=== PATIENT | female | born 1955 | race Caucasian/White ===

== ENCOUNTER → 2018-10-06 10:16 | Outpatient (CLI) | payer OTHER, SELFPAY ==
[2018-10-06 11:15] LABS: Add Manual Diff / Slide Review NO; Basophils Absolute Auto 0 /uL (0-100); Eosinophils Absolute Auto 400 /uL (0-450); Eosinophils Percent Auto 8.6 % (2-4); Hematocrit 40.2 % (36-46); Hemoglobin 13.3 g/dL (12.0-16.0); Lymphocytes Absolute Auto 1600 /uL (1100-4500); Lymphocytes Percent Auto 32.2 % (25-40); Mean Corpuscular Hemoglobin 28.4 PG (26-34); Mean Corpuscular Volume 86.1 fL (80-100); Monocytes Absolute Auto 400 /uL (0-900); Monocytes Percent Auto 7.2 % (3-14); Neutrophils Absolute Auto 2500 /uL (1500-7000); Platelet Count 246 X10^3/uL (150-400); Red Blood Cell Count 4.67 X10^6/uL (4.0-5.2)
[2018-10-06 12:18] LABS: Alanine Aminotransferase 27 IU/L (9-52); Albumin 4.4 g/dL (3.5-5.0); Albumin Globulin Ratio 1.6 (1.0-2.8); Alkaline Phosphatase 71 U/L (38-126); Aspartate Aminotransferase 28 IU/L (14-36); Bilirubin Total 0.5 mg/dL (0.2-1.3); Blood Urea Nitrogen 16 mg/dL (7-17); Calcium 9.6 mg/dL (8.4-10.2); Carbon Dioxide 29 mmol/L (22-32); Chloride 100 mmol/L (98-107); Cholesterol 206 mg/dL (140-199); Estimated Glomerular Filt Rate > 60.0 mL/min (>60); Globulin 2.8 g/dL (1.7-4.1); Glucose 87 mg/dL (80-110); HDL Cholesterol 70 mg/dL (40-60); HEMOLYSIS < 15 (0-50); LDL Cholesterol Calculated 114 mg/dL (<100); Potassium 4.5 mmol/L (3.4-5.1); Sodium 139 mmol/L (137-145); Total Protein 7.2 g/dL (6.3-8.2); Triglycerides 111 mg/dL (35-150)
[2018-10-06 12:47] LABS: TSH w/ Reflex to FT4 1.08 uIU/mL (0.47-4.68)
== END ==
PROVIDERS: Family Provider Family Medicine; PCP Family Medicine; Visit Provider Family Medicine
DX: E03.9 Hypothyroidism, unspecified (principal); Z13.1 Encounter for screening for diabetes mellitus; Z86.79 Personal history of other diseases of the circulatory system
CPT/HCPCS: 36415; 80053; 80061; 84443; 85025

== ENCOUNTER → 2018-10-18 11:23 | Outpatient (CLI) | payer OTHER, SELFPAY ==
--- NOTE | 2018-10-18 | DI.MG.S_ITS ---
BILATERAL DIGITAL SCREENING MAMMOGRAM 3D/2D WITH CAD: 10/18/2018 CLINICAL: Routine screening. Family history of breast cancer. Comparison is made to exams dated: 10/15/2017 mammogram - [facility], 08/28/2016 mammogram, 08/13/2015 mammogram, and 08/02/2014 mammogram - [facility]. The tissue of both breasts is heterogeneously dense. This may lower the sensitivity of mammography. Current study was also evaluated with a Computer Aided Detection (CAD) system. No significant masses, calcifications, or other findings are seen in either breast. There has been no significant interval change. IMPRESSION: NEGATIVE There is no mammographic evidence of malignancy. A 1 year screening mammogram is recommended. This exam was interpreted at Station ID: [id number]. NOTE: For mammograms, a report in lay terms will be sent to the patient. Approximately 15% of breast malignancies will not be visualized mammographically. In the management of a palpable breast mass, a negative mammogram must not discourage biopsy of a clinically suspicious lesion. Electronically Signed By: Huey harley/sarahi:10/18/2018 17:33:25 letter sent: Normal Exam ACR BI-RADS Category 1: Negative 3341F
== END ==
PROVIDERS: PCP Family Medicine; Visit Provider Family Medicine
DX: Z12.31 Encounter for screening mammogram for malignant neoplasm of breast (principal); Z80.3 Family history of malignant neoplasm of breast
CPT/HCPCS: 77063; 77067

== ENCOUNTER → 2018-10-21 09:02 | Outpatient (CLI) | payer OTHER, SELFPAY ==
--- NOTE | 2018-10-21 09:04 | DI.RAD.S_ITS ---
PROCEDURE: XR LUMBAR SPINE MIN 4V INDICATIONS: Low back pain TECHNIQUE: 5 views of the lumbar spine were acquired. COMPARISON: None. FINDINGS: Bones: 5 nonrib-bearing vertebrae are present. There is normal bony alignment. No vertebral body compression fractures. No suspicious bony lesions. There is degenerative disc disease, moderate to severe at L3-L4 at L4-L5, mild at L1-L2 and L2-L3. There is moderate to severe facet arthropathy at L4-L5 and L5-S1. Soft tissues: Overlying bowel gas pattern is normal. No suspicious soft tissue calcifications. Oblique images: No pars defects. IMPRESSION: Degenerative disc and facet disease in lumbar spine. Dictated by: Benji Villeda M.D. on 10/21/2018 at 14:32 Approved by: Benji Villeda M.D. on 10/21/2018 at 14:34
--- NOTE | 2018-10-21 09:04 | DI.RAD.S_ITS ---
PROCEDURE: XR SACRUM COCCYX MIN 2V INDICATIONS: Low back pain TECHNIQUE: 3 views of the sacrum and coccyx acquired. COMPARISON: None. FINDINGS: Bones: No fractures or dislocations. No suspicious bony lesions. Mild degenerative joint disease of sacroiliac joints bilaterally Soft tissues: Visualized bowel gas pattern is normal. No suspicious soft tissue densities. IMPRESSION: 1. No fractures. 2. 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 Dictated by: Benji Villeda M.D. on 10/21/2018 at 17:14 Approved by: Benji Villeda M.D. on 10/21/2018 at 17:16
== END ==
PROVIDERS: PCP Family Medicine; Visit Provider Registered Nurse
DX: M54.5 Low back pain (principal); M51.36 Other intervertebral disc degeneration, lumbar region; M47.816 Spondylosis without myelopathy or radiculopathy, lumbar region; M47.817 Spondylosis without myelopathy or radiculopathy, lumbosacral region; M47.898 Other spondylosis, sacral and sacrococcygeal region
CPT/HCPCS: 72110; 72220

== ENCOUNTER → 2018-12-08 14:17 | Outpatient (CLI) | payer OTHER, SELFPAY ==
[2018-12-08 15:45] LABS: Erythrocyte Sedimentation Rate 11 MM/HR (0-20)
[2018-12-08 16:01] LABS: Lactate Dehydrogenase 458 U/L (313-618)
[2018-12-08 16:03] LABS: C-Reactive Protein Quant < 0.5 mg/dL (<1.0)
== END ==
PROVIDERS: PCP Internal Medicine; Visit Provider Internal Medicine
DX: R59.1 Generalized enlarged lymph nodes (principal)
CPT/HCPCS: 36415; 83615; 85651; 86140

== ENCOUNTER → 2018-12-13 09:05 | Outpatient (CLI) | payer OTHER, SELFPAY ==
--- NOTE | 2018-12-13 | DI.US.S_ITS ---
PROCEDURE: US THYROID INDICATIONS: LOCALIZED SWELLING, MASS AND LUMP TECHNIQUE: Real-time scanning was performed of the thyroid gland, with image documentation. COMPARISON: None. FINDINGS: Right: Thyroid lobe measures 2.8 x 1.0 x 0.9 cm, and is diffusely heterogeneous in echotexture. Left: Thyroid lobe measures 3.9 x 1.2 x 1.2 cm, and is diffusely heterogeneous in echotexture. Isthmus: 2.1 mm thick. In the area of palpable abnormality superior to the thyroid bed, no sonographic abnormalities seen IMPRESSION: No thyroid nodule Diffuse heterogeneous appearance of the thyroid. Please correlate with biochemical data to exclude thyroiditis. No sonographic abnormality in the area of palpable swelling. Dictated by: Domingo Gracia M.D. on 12/13/2018 at 16:41 Approved by: Domingo Gracia M.D. on 12/13/2018 at 16:43
== END ==
PROVIDERS: PCP Internal Medicine; Visit Provider Internal Medicine
DX: R22.1 Localized swelling, mass and lump, neck (principal)
CPT/HCPCS: 76536

== ENCOUNTER → 2019-05-25 14:43 | Outpatient (CLI) | payer OTHER, SELFPAY | PROVIDERS: PCP Family Medicine; Visit Provider Internal Medicine | DX: M85.852 Other specified disorders of bone density and structure, left thigh (principal); Z78.0 Asymptomatic menopausal state; Z82.62 Family history of osteoporosis | CPT/HCPCS: 77080 ==

== ENCOUNTER → 2019-06-07 18:53 | Outpatient (ROUT) | payer OTHER, SELFPAY ==
[2019-06-07 19:34] LABS: Free T3, Triiodothyronine Free 3.89 pg/mL (2.77-5.27); Free T4, Direct Thyroxine 0.98 ng/dL (0.78-2.19)
[2019-06-07 19:48] LABS: TSH w/ Reflex to FT4 0.22 uIU/mL (0.47-4.68)
== END ==
PROVIDERS: PCP Family Medicine; Visit Provider Internal Medicine
DX: E03.9 Hypothyroidism, unspecified (principal)
CPT/HCPCS: 84439; 84443; 84481

== ENCOUNTER → 2019-07-26 11:19 | Outpatient (CLI) | payer OTHER, SELFPAY ==
--- NOTE | 2019-07-26 | DI.RAD.S_ITS ---
PROCEDURE: XR RIBS RT 2V INDICATIONS: RIB PAIN ON RIGHT SIDE TECHNIQUE: 2 views of the right ribs were acquired. COMPARISON: None. FINDINGS: Surgical changes and devices: None. Bones and chest wall: Probable nondisplaced 9th rib fracture. No suspicious bony lesions. Overlying soft tissues appear unremarkable. Lungs and pleura: The visualized lung appears clear. No pleural effusions or pneumothorax are visible. IMPRESSION: Probable nondisplaced ninth rib fracture. Dictated by: Benji Villeda M.D. on 07/26/2019 at 13:27 Approved by: Benji Villeda M.D. on 07/26/2019 at 13:29
== END ==
PROVIDERS: PCP Internal Medicine; Visit Provider Physician Assistant
DX: R07.81 Pleurodynia (principal)
CPT/HCPCS: 71100

== ENCOUNTER 2019-09-21 10:43 | Day surgery (SDC) | payer MEDICARE, OTHER, SELFPAY ==
--- NOTE | 2019-09-21 | PATH_ITS ---
[facility] Accession Number: [id number] . 01 Material submitted: . PART A: colon - RANDOM COLON BIOPSIES PART B: colon - DISTAL TRANSVERSE COLON POLYPS BIOPSY . 02 Diagnosis: A. Random Colon, Biopsies: Colonic mucosa with no diagnostic abnormality. Negative for active, chronic, and microscopic colitis. Negative for dysplasia and malignancy. . B. Distal Transverse Colon Polyp, Biopsy: Multiple fragments of sessile serrated adenoma. MRV 09/22/2019 1537 Local . 02 Electronically signed: . Julia Bowles MD, Pathologist NPI- [id number] . 01 Gross description: . Part A: RANDOM COLON BIOPSIES: Received in formalin are 4 fragment(s) of woods, soft tissue measuring 0.1 x 0.1 x 0.1 cm to 0.5 x 0.1 x 0.1 cm submitted entirely in 1 cassette(s) Part B: DISTAL TRANSVERSE COLON POLYPS BIOPSY: Received in formalin are 3 fragment(s) of woods, soft tissue measuring 0.2 x 0.2 x 0.2 cm to 0.7 x 0.3 x 0.3 cm submitted entirely in 1 cassette(s) /[facility] [place] 09/21/2019 2311 Local . 02 Pathologist provided ICD-10: D12.3 . 02 CPT . 914537, [id number] Performed at: 01 [facility] [address] [id number] MD Dinesh Kraus MD Phone: [phone] Performed at: 02 [facility] [address] [place], [place] [id number] MD Julia Bowles MD Phone: [phone]
[2019-09-21] MEDS: SODIUM CHLORIDE 0.9% 1,000 ML 42 ML IV (11:22)
[2019-09-21 11:32] VITALS: BP 122/75; PULSE 69; RESP 15; TEMP 36.4; O2SAT 100; BMI 27.3
--- NOTE | 2019-09-21 12:17 | P.HP_ITS ---
History of Present Illness History of Present Illness Date Patient Seen: 09/21/19 Chief complaint: [id number] Narrative: Need for colorectal cancer screening. Also with bloating and some change in bowel movement. Patient History Medical History (Updated 05/24/19 @ 06:35 by Jessica Tapia MD) Actinic keratosis (Chronic) Anxiety (Chronic ~2017) Atrial fibrillation (Chronic ~2009) Atrophic vulvovaginitis (Acute) Back problem (Chronic) Carpal tunnel syndrome (Chronic ~1999) Chicken pox (Resolved) Chronic back pain (Chronic ~1979) GERD (gastroesophageal reflux disease) (Chronic) Hematuria (Chronic ~2015) Hemorrhoid (Chronic ~1972) Hypothyroidism (Chronic ~1979) Irritable bowel syndrome with both constipation and diarrhea (Acute) Measles (Resolved) Palpitations (Chronic) Rosacea (Chronic ~1979) Shoulder pain (Chronic ~2015) Sleep apnea (Chronic ~2012) Tinnitus (Chronic ~1999) Surgical History (Updated 05/24/19 @ 06:34 by Jessica Tapia MD) Anesthesia (Resolved) History of carpal tunnel repair (~2008) History of tonsillectomy (~1958) Ovarian cyst (Resolved ~1976) S/P ablation of atrial fibrillation (Resolved ~2012) Status post discectomy (~2012) Status post hysterectomy (~1979) [place]rell teeth extracted (Acute) Family & Social History Social History: household members spouse Tobacco & Substance use: Smoking Status Former smoker alcohol intake never Substance Use Type does not use Meds Home Medications and Allergies Home Medications Medication Instructions Recorded Confirmed Type azelaic acid [Finacea] 50 gm TOPICAL DAILY #0 08/17/17 09/21/19 History cholecalciferol (vitamin D3) 1 unit PO QDAY #0 08/17/17 09/21/19 History multivitamin [Multiple Vitamins] 1 tab PO QDAY #0 08/17/17 09/21/19 History vitamin B complex [B 1 tab PO QDAY #0 08/17/17 09/21/19 History Complex-Vitamin B12] fluticasone propionate 50 1 spray INTRANASAL QDAY #1 bot 01/24/19 09/21/19 Rx mcg/actuation nasal spray,suspension Cmp Estriol 0.2% Vaginal Cream 0.5 gram VAGINAL .COMPLEX #30 gram 03/10/19 09/21/19 Rx levothyroxine 50 mcg PO DAILY 09/21/19 09/21/19 History Allergies Allergy/AdvReac Type Severity Reaction Status Date / Time azithromycin [AZITHROMYCIN] Allergy Unknown HIves/itchi Verified 09/21/19 11:14 ng hydrocodone [HYDROCODONE] Allergy Unknown nausea Verified 09/21/19 11:14 adhesive tape AdvReac Mild Rash Verified 09/21/19 11:14 Exam Vital Signs (past 8 hours): - 09/21/19 11:32 Temperature 97.5 F L Pulse Rate 69 Respiratory Rate 15 Blood Pressure 122/75 Pulse Oximetry 100 Oxygen Delivery Method Room Air Narrative Exam Narrative: Oropharynx free of lesions Chest clear to auscultation percussion Cardiac exam reveals no S3 or murmur Assessment & Plan Assessment & Plan narrative: Need for colorectal cancer screening. Also with change in bowel habits to be on the looser side. Rule out colitis rule out neoplasia. Risks, benefits, alternatives have been explained. Random biopsies will be taken.
--- NOTE | 2019-09-21 12:19 | PM.OP.ENDO ---
Operative Date/Time/Diagnoses Date of procedure: 09/21/19 Pre-op diagnosis: See indication and findings Procedure & Clinicians Study performed: Colonoscopy Same procedure as scheduled: Yes Indications: Colorectal cancer screening and loose stools Surgeon: Lavon Fisher Procedure Notes Procedure in detail: After informed consent was obtained the patient was placed in left lateral decubitus position. The video colonoscope was introduced the rectum slowly advanced to cecum. On slow withdrawal mucosa was carefully examined. The scope was removed. The patient tolerated procedure well. Blood loss none Complications none Sedation Total sedation time 27 minutes Versed 9 mg fentanyl 150 micro g IV titration Findings 1. 2 cm flat polyp in the distal transverse colon at approximately 60 cm. Cold snared x2 in a piecemeal fashion removed. Both fragments retrieved 2. Otherwise negative colonoscopy to cecum. Random biopsies taken to rule out microscopic colitis. Will await biopsy results but will most likely need follow-up colonoscopy in 1-3 years to evaluate polypectomy site
[2019-09-21] MEDS: MIDAZOLAM 5 MG/5 ML VIAL IV (12:38)
[2019-09-21] MEDS: fentaNYL 250 MCG/5 ML INJ IV (12:38)
[2019-09-21] MEDS: ONDANSETRON 4 MG/2 ML INJ IV (12:39)
[2019-09-21 13:09] VITALS: BP 111/62; PULSE 63; RESP 5; TEMP 36.1; O2SAT 100
[2019-09-21 13:14] VITALS: BP 115/62; PULSE 73; RESP 14; O2SAT 100
[2019-09-21 13:18] VITALS: BP 115/71; PULSE 63; RESP 17; TEMP 36.3; O2SAT 100
== END 2019-09-21 13:30 | disposition home or self-care (01) ==
PROVIDERS: PCP Internal Medicine; Referring Provider Internal Medicine; Visit Provider Internal Medicine Gastroenterology
PROC: 0DJD8ZZ Inspection of Lower Intestinal Tract, Via Natural or Artificial Opening Endoscopic (ICD-10-PCS; CPT 45378; principal; 2019-09-21 12:30)
DX: R19.7 Diarrhea, unspecified (principal); R14.0 Abdominal distension (gaseous); R19.4 Change in bowel habit; D12.3 Benign neoplasm of transverse colon
CPT/HCPCS: 45385; J2250; J2405; J3010

== ENCOUNTER → 2019-12-22 12:10 | Outpatient (CLI) | payer MEDICARE, OTHER, SELFPAY ==
--- NOTE | 2019-12-22 | DI.RAD.S_ITS ---
PROCEDURE: XR LUMBAR SPINE 2-3V INDICATIONS: PAIN IN THORACIC SPINE TECHNIQUE: 3 views of the lumbar spine were acquired. COMPARISON: [facility], CR, XR LUMBAR SPINE MIN 4V, 10/21/2018, 9:19. FINDINGS: Bones: 5 [id number] vertebrae are present. There is normal bony alignment. No vertebral body compression fractures. No suspicious bony lesions. Mild degenerative disc disease is again noted, virtually equivalent to that previously present in September of 2018. No compression fracture has developed. Source vein is not seen. Soft tissues: Overlying bowel gas pattern is normal. No suspicious soft tissue calcifications. 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 Source of new pain is not found. Dictated by: Damon Darnell M.D. on 12/22/2019 at 14:51 Approved by: Damon Darnell M.D. on 12/22/2019 at 14:52
--- NOTE | 2019-12-22 | DI.RAD.S_ITS ---
PROCEDURE: XR THORACIC SPINE 2V INDICATIONS: PAIN IN THORACIC SPINE TECHNIQUE: 3 views of the thoracic spine were acquired. COMPARISON: None. FINDINGS: Bones: No fractures or dislocations. No suspicious bony lesions. 12 pairs of ribs are noted, and appear intact where visualized. Soft tissues: No paravertebral stripe thickening. IMPRESSION: Mild to moderate degenerative disc disease is noted along the racic spine, but no subluxation or definite nerve root impingement area is found. Dictated by: Damon Darnell M.D. on 12/22/2019 at 14:50 Approved by: Damon Darnell M.D. on 12/22/2019 at 14:51
== END ==
PROVIDERS: PCP Internal Medicine; Referring Provider Physician Assistant; Visit Provider Physician Assistant
DX: M51.34 Other intervertebral disc degeneration, thoracic region (principal); M51.36 Other intervertebral disc degeneration, lumbar region; M47.816 Spondylosis without myelopathy or radiculopathy, lumbar region
CPT/HCPCS: 72070; 72100

== ENCOUNTER → 2020-01-02 09:09 | Outpatient (CLI) | payer MEDICARE, OTHER, SELFPAY ==
--- NOTE | 2020-01-02 09:12 | DI.MG.S_ITS ---
BILATERAL DIGITAL SCREENING MAMMOGRAM 3D/2D WITH CAD: 01/02/2020 CLINICAL: Routine screening. Family history of breast cancer. Comparison is made to exams dated: 10/18/2018 mammogram, 10/15/2017 mammogram - [facility], and 08/28/2016 mammogram - [facility]. The tissue of both breasts is heterogeneously dense. This may lower the sensitivity of mammography. Current study was also evaluated with a Computer Aided Detection (CAD) system. No significant masses, calcifications, or other findings are seen in either breast. There has been no significant interval change. IMPRESSION: NEGATIVE There is no mammographic evidence of malignancy. A 1 year screening mammogram is recommended. This exam was interpreted at Station ID: [id number]. NOTE: For mammograms, a report in lay terms will be sent to the patient. Approximately 15% of breast malignancies will not be visualized mammographically. In the management of a palpable breast mass, a negative mammogram must not discourage biopsy of a clinically suspicious lesion. Electronically Signed By: Sav robins/sarahi:01/02/2020 09:30:16 letter sent: Normal Exam ACR BI-RADS Category 1: Negative 3341F
== END ==
PROVIDERS: PCP Internal Medicine; Referring Provider Internal Medicine; Visit Provider Internal Medicine
DX: Z12.31 Encounter for screening mammogram for malignant neoplasm of breast (principal); Z80.3 Family history of malignant neoplasm of breast
CPT/HCPCS: 77063; 77067

== ENCOUNTER → 2020-03-18 11:17 | Outpatient (CLI) | payer MEDICARE, OTHER, SELFPAY ==
[2020-03-19 11:09] LABS: COVID19 Sendout Not Detected (Not Detect)
== END ==
PROVIDERS: PCP Internal Medicine; Visit Provider Nurse Practitioner
DX: Z11.59 Encounter for screening for other viral diseases (principal)
CPT/HCPCS: 87635

== ENCOUNTER 2020-03-21 09:49 | Day surgery (SDC) | payer MEDICARE, OTHER, SELFPAY ==
[2020-03-21] VITALS (8 sets, daily range): BP systolic 95–146; BP diastolic 60–84; PULSE 62–76; RESP 13–16; TEMP 36.6–36.9; O2SAT 98–100; BMI 25.4
[2020-03-21] MEDS: SODIUM CHLORIDE 0.9% 1,000 ML 42 ML IV (10:26)
[2020-03-21] MEDS: MIDAZOLAM 5 MG/5 ML VIAL IV (11:30)
[2020-03-21] MEDS: fentaNYL 250 MCG/5 ML INJ IV (11:30)
--- NOTE | 2020-03-21 12:21 | PM.OP.ENDO ---
Operative Date/Time/Diagnoses Date of procedure: 03/21/20 Time of procedure: 12:21 Pre-op diagnosis: See indication and findings Procedure & Clinicians Study performed: Colonoscopy Same procedure as scheduled: Yes Indications: Follow-up of large 2 cm polyp in the distal transverse colon at 60 cm to ensure complete removal Surgeon: Lavon Fisher Procedure Notes Procedure in detail: After informed consent was obtained the patient was placed in left lateral decubitus position. The video colonoscope was introduced the rectum slowly advanced cecum. Preparation was good. On slow withdrawal mucosa was carefully examined. The scope was removed. The patient tolerated procedure well. Blood loss none Complications none Sedation Total sedation time 19 minutes Versed 6 mg fentanyl 100 mg IV titration Findings 1. Scattered diverticulosis but otherwise completely negative colonoscopy to cecum Ms. Wei will need follow-up colonoscopy in 5 years.
== END 2020-03-21 12:45 | disposition home or self-care (01) ==
PROVIDERS: PCP Internal Medicine; Referring Provider Internal Medicine Gastroenterology; Visit Provider Internal Medicine Gastroenterology
PROC: 0DJD8ZZ Inspection of Lower Intestinal Tract, Via Natural or Artificial Opening Endoscopic (ICD-10-PCS; CPT 45378; principal; 2020-03-21 11:30)
DX: Z86.010 Personal history of colon polyps (principal); K59.09 Other constipation; K57.30 Diverticulosis of large intestine without perforation or abscess without bleeding; E03.9 Hypothyroidism, unspecified
CPT/HCPCS: 45378; J2250; J3010

== ENCOUNTER → 2020-05-16 09:11 | Outpatient (CLI) | payer MEDICARE, OTHER, SELFPAY ==
[2020-05-16 10:45] LABS: Add Manual Diff / Slide Review NO; Basophils Absolute Auto 100 /uL (0-100); Basophils Percent Auto 1.2 % (0-2); Eosinophils Absolute Auto 200 /uL (0-450); Eosinophils Percent Auto 3.8 % (2-4); Hematocrit 40.1 % (36-46); Hemoglobin 13.4 g/dL (12.0-16.0); Lymphocytes Absolute Auto 1600 /uL (1100-4500); Lymphocytes Percent Auto 31.1 % (25-40); Mean Corpuscular HGB Conc 33.3 % (30-36); Mean Corpuscular Hemoglobin 28.9 PG (26-34); Mean Corpuscular Volume 86.9 fL (80-100); Monocytes Absolute Auto 400 /uL (0-900); Monocytes Percent Auto 7.3 % (3-14); Neutrophils Absolute Auto 2800 /uL (1500-7000); Neutrophils Percent Auto 56.6 % (50-75); Platelet Count 246 X10^3/uL (150-400); Red Blood Cell Count 4.62 X10^6/uL (4.0-5.2); Red Cell Distribution Width 14.1 % (11.6-14.8)
[2020-05-16 11:04] LABS: Alanine Aminotransferase 50 IU/L (<35); Albumin 4.3 g/dL (3.5-5.0); Albumin Globulin Ratio 1.5 (1.0-2.8); Alkaline Phosphatase 75 U/L (38-126); Aspartate Aminotransferase 54 IU/L (14-36); BUN Creatinine Ratio 17.9 (6-22); Bilirubin Total 0.6 mg/dL (0.2-1.3); Blood Urea Nitrogen 14 mg/dL (7-17); Calcium 9.5 mg/dL (8.4-10.2); Carbon Dioxide 31 mmol/L (22-32); Chloride 99 mmol/L (98-107); Cholesterol 223 mg/dL (140-199); Estimated Glomerular Filt Rate > 60.0 mL/min (>60); Globulin 2.9 g/dL (1.7-4.1); Glucose 86 mg/dL (80-110); HDL Cholesterol 67 mg/dL (40-60); HEMOLYSIS < 15 (0-50); LDL Cholesterol Calculated 130 mg/dL (<100); Potassium 4.8 mmol/L (3.4-5.1); Sodium 136 mmol/L (137-145); Total Protein 7.2 g/dL (6.3-8.2); Triglycerides 129 mg/dL (35-150)
[2020-05-16 11:32] LABS: TSH w/ Reflex to FT4 0.77 uIU/mL (0.47-4.68)
== END ==
PROVIDERS: PCP Internal Medicine; Referring Provider Physician Assistant; Visit Provider Physician Assistant
DX: G44.52 New daily persistent headache (NDPH) (principal); I48.20 Chronic atrial fibrillation, unspecified; E03.9 Hypothyroidism, unspecified; J34.89 Other specified disorders of nose and nasal sinuses
CPT/HCPCS: 36415; 80053; 80061; 84443; 85025

== ENCOUNTER → 2020-05-29 09:19 | Outpatient (CLI) | payer MEDICARE, OTHER, SELFPAY ==
[2020-05-29 11:09] LABS: Alanine Aminotransferase 27 IU/L (<35); Albumin 4.1 g/dL (3.5-5.0); Albumin Globulin Ratio 1.4 (1.0-2.8); Alkaline Phosphatase 69 U/L (38-126); Aspartate Aminotransferase 33 IU/L (14-36); Bilirubin Total 0.6 mg/dL (0.2-1.3); Bilirubin Unconjugated 0.6 mg/dL (0.0-1.1); HEMOLYSIS < 15 (0-50); Total Protein 7.1 g/dL (6.3-8.2)
== END ==
PROVIDERS: PCP Internal Medicine; Referring Provider Physician Assistant; Visit Provider Physician Assistant
DX: R94.5 Abnormal results of liver function studies (principal)
CPT/HCPCS: 36415; 80076

== ENCOUNTER → 2020-09-25 09:35 | Outpatient (CLI) | payer MEDICARE, OTHER, SELFPAY ==
[2020-09-25 11:14] LABS: Alanine Aminotransferase 25 IU/L (<35); Albumin 4.2 g/dL (3.5-5.0); Albumin Globulin Ratio 1.6 (1.0-2.8); Alkaline Phosphatase 78 U/L (38-126); Aspartate Aminotransferase 33 IU/L (14-36); BUN Creatinine Ratio 16.5 (6-22); Bilirubin Total 0.5 mg/dL (0.2-1.3); Blood Urea Nitrogen 13 mg/dL (7-17); Calcium 9.4 mg/dL (8.4-10.2); Carbon Dioxide 32 mmol/L (22-32); Chloride 100 mmol/L (98-107); Cholesterol 194 mg/dL (140-199); Estimated Glomerular Filt Rate > 60.0 mL/min (>60); Globulin 2.7 g/dL (1.7-4.1); Glucose 92 mg/dL (80-110); HDL Cholesterol 59 mg/dL (40-60); HEMOLYSIS < 15 (0-50); LDL Cholesterol Calculated 111 mg/dL (<100); Potassium 4.3 mmol/L (3.4-5.1); Sodium 136 mmol/L (137-145); Total Protein 6.9 g/dL (6.3-8.2); Triglycerides 121 mg/dL (35-150)
== END ==
PROVIDERS: PCP Internal Medicine; Referring Provider Internal Medicine; Visit Provider Internal Medicine
DX: E78.2 Mixed hyperlipidemia (principal)
CPT/HCPCS: 36415; 80053; 80061

== ENCOUNTER → 2021-01-09 11:16 | Outpatient (CLI) | payer MEDICARE, OTHER, SELFPAY ==
--- NOTE | 2021-01-09 | DI.MG.S_ITS ---
BILATERAL DIGITAL SCREENING MAMMOGRAM 3D/2D WITH CAD: 01/09/2021 CLINICAL: Routine screening. Family history of breast cancer. Comparison is made to exams dated: 01/02/2020 mammogram, 10/18/2018 mammogram, and 10/15/2017 mammogram - [facility]. There are scattered fibroglandular elements in both breasts. Current study was also evaluated with a Computer Aided Detection (CAD) system. No significant masses, calcifications, or other findings are seen in either breast. There has been no significant interval change. IMPRESSION: NEGATIVE There is no mammographic evidence of malignancy. A 1 year screening mammogram is recommended. This exam was interpreted at Station ID: [id number]. NOTE: For mammograms, a report in lay terms will be sent to the patient. Approximately 15% of breast malignancies will not be visualized mammographically. In the management of a palpable breast mass, a negative mammogram must not discourage biopsy of a clinically suspicious lesion. Electronically Signed By: Pallavi adame/sarahi:01/09/2021 13:15:29 letter sent: Normal Exam ACR BI-RADS Category 1: Negative 3341F
== END ==
PROVIDERS: PCP Internal Medicine; Referring Provider Internal Medicine; Visit Provider Internal Medicine
DX: Z12.31 Encounter for screening mammogram for malignant neoplasm of breast (principal); Z80.3 Family history of malignant neoplasm of breast
CPT/HCPCS: 77063; 77067

== ENCOUNTER → 2021-03-08 08:56 | Outpatient (CLI) | payer MEDICARE, OTHER, SELFPAY ==
[2021-03-08 11:03] LABS: COVID19 -Nasal RAPID Negative (Negative)
== END ==
PROVIDERS: PCP Internal Medicine; Visit Provider Physician Assistant
DX: R09.81 Nasal congestion (principal); Z20.822 Contact with and (suspected) exposure to COVID-19
CPT/HCPCS: 87635

== ENCOUNTER → 2021-05-14 09:21 | Outpatient (CLI) | payer MEDICARE, OTHER, SELFPAY ==
--- NOTE | 2021-05-14 | DI.RAD.S_ITS ---
PROCEDURE: XR HIP W PEL IF DONE GAIL MIN 4V INDICATIONS: Other chronic pain TECHNIQUE: AP pelvis with lateral view(s) of the bilateral hip(s). COMPARISON: None. FINDINGS: Bones: No fractures or dislocations. Pelvic ring appears intact. No suspicious bony lesions. Productive changes are seen about the bilateral greater trochanters and superior acetabulum. Soft tissues: The visualized bowel gas pattern is normal. No suspicious soft tissue calcifications. IMPRESSION: No acute osseous abnormality. Dictated by: Rony De Paz M.D. on 05/14/2021 at 16:39 Approved by: Rony De Paz M.D. on 05/14/2021 at 16:40
== END ==
PROVIDERS: PCP Internal Medicine; Referring Provider Internal Medicine; Visit Provider Internal Medicine
DX: M25.551 Pain in right hip (principal); M25.552 Pain in left hip; G89.29 Other chronic pain
CPT/HCPCS: 73522

== ENCOUNTER → 2021-05-17 13:41 | Outpatient (CLI) | payer MEDICARE, OTHER, SELFPAY ==
[2021-05-21 02:34] LABS: HCV AB <0.1 s/co ratio (0.0-0.9)
== END ==
PROVIDERS: PCP Internal Medicine; Referring Provider Internal Medicine; Visit Provider Internal Medicine
DX: Z11.59 Encounter for screening for other viral diseases (principal)
CPT/HCPCS: 36415; 86803

== ENCOUNTER → 2021-05-27 10:29 | Outpatient (CLI) | payer MEDICARE, OTHER, SELFPAY | PROVIDERS: PCP Internal Medicine; Referring Provider Internal Medicine; Visit Provider Internal Medicine | DX: Z78.0 Asymptomatic menopausal state (principal); M85.852 Other specified disorders of bone density and structure, left thigh; E07.9 Disorder of thyroid, unspecified; Z82.62 Family history of osteoporosis | CPT/HCPCS: 77080 ==

== ENCOUNTER 2021-09-11 13:27 | Observation (INO) | payer MEDICARE, OTHER, SELFPAY ==
[2021-09-11] VITALS (23 sets, daily range): BP systolic 118–159; BP diastolic 70–87; PULSE 73–150; RESP 11–30; TEMP 36.6; O2SAT 87–99; BMI 26.3
--- NOTE | 2021-09-11 13:34 | DI.RAD.S_ITS ---
PROCEDURE: XR CHEST 1V INDICATIONS: chest pain TECHNIQUE: One view of the chest was acquired. COMPARISON: None. FINDINGS: Surgical changes and devices: None. Lungs and pleura: Lungs are clear. No pleural effusions or pneumothorax. Mediastinum: Mediastinal contours appear normal. Heart size is normal. Bones and chest wall: No suspicious bony lesions. Overlying soft tissues appear unremarkable. IMPRESSION: No acute cardiopulmonary disease process. Dictated by: Oralia Gomez MD, PhD on 09/11/2021 at 14:08 Approved by: Oralia Gomez MD, PhD on 09/11/2021 at 14:08
--- NOTE | 2021-09-11 13:48 | ED.ARRPALP ---
HPI - Arrhythmia/Palpitations General Chief Complaint: Arrhythmia/Palpitations Stated Complaint: Heart palps, rapid pulse Time Seen by Provider: 09/11/21 13:48 Source: patient Mode of arrival: Ambulatory History of Present Illness HPI narrative: 66-year-old female nonsmoker with history of AFib and a prior ablation about 10 years ago presents with her in the chief complaint of a rapid heart rate for the past few hours. She states that she woke up in her normal state of health and over the course of the morning was doing well. At about 12:30 p.m. she had a glass of water and soon thereafter noted palpitations and a rapid heart rate. She is not dizzy nor weak or lightheaded. She feels a bit jittery and anxious but denies any chest pain. She does have some mild shortness of breath. She denies nausea, vomiting or diarrhea. She takes no medications for heart rate since her ablation. She denies recent travel, history of blood clot or any previous diagnosis of cancer. She has had no fever or chills. She denies nausea, vomiting or diarrhea. She denies any change in medications or diet. Related Data Home Medications Medication Instructions Recorded Confirmed azelaic acid 15 % topical gel 50 gm TOPICAL DAILY #0 08/17/17 09/11/21 (Finacea) cholecalciferol (vitamin D3) 50 1 unit PO QDAY #0 08/17/17 09/11/21 mcg (2,000 unit) tablet multivitamin (Multiple Vitamins) 1 tab PO QDAY #0 08/17/17 09/11/21 vitamin B complex (B 1 tab PO QDAY #0 08/17/17 09/11/21 Complex-Vitamin B12) levothyroxine 50 mcg tablet 50 mcg PO DAILY 09/21/19 09/11/21 Previous Rx's Medication Instructions Recorded fluticasone propionate 50 1 spray INTRANASAL QDAY #1 bot 01/24/19 mcg/actuation nasal spray,suspension (Flonase Allergy Relief) estradiol See Rx Instructions .ROUTE 08/12/21 .COMPLEX #42.5 g apixaban 5 mg tablet (Eliquis) 5 mg PO BID 90 Days #180 tab 09/12/21 diltiazem HCl 60 mg 60 mg PO DAILY 90 Days #90 cap 09/12/21 capsule,extended release 12 hr Allergies Allergy/AdvReac Type Severity Reaction Status Date / Time azithromycin [AZITHROMYCIN] Allergy Unknown HIves/itchi Verified 03/21/20 10:06 ng hydrocodone [HYDROCODONE] Allergy Unknown nausea Verified 03/21/20 10:06 adhesive tape AdvReac Mild Rash Verified 03/21/20 10:06 Review of Systems Review of Systems Narrative: GENERAL: See HP HEENT: Denies sinus pain, ear pain, sore throat, difficulty swallowing, dizziness. RESPIRATORY: Denies dyspnea, cough, wheezing, hemoptysis, sputum. CARDIOVASCULAR: See HPI GASTROINTESTINAL: Denies nausea, vomiting, abdominal pain, diarrhea, constipation, melena. : Denies dysuria, frequency, incontinence, hematuria, urinary retention. MUSCULOSKELETAL: denies weakness, joint pain, or bony pain SKIN: Denies rash, skin lesions, or other NEUROLOGIC: Denies weakness, headache, numbness, change in speech, confusion, seizures, incoordination. PSYCHIATRIC: No concerning psychosocial issues. 12 point review of systems is negative except for those stated above Patient History Medical History Actinic keratosis Anxiety (~2017) Atrial fibrillation (~2009) Atrophic vulvovaginitis Back problem Carpal tunnel syndrome (~1999) Chicken pox Chronic back pain (~1979) GERD (gastroesophageal reflux disease) Hematuria (~2015) Hemorrhoid (~1972) Hypothyroidism (~1979) Irritable bowel syndrome with both constipation and diarrhea Measles Palpitations Rosacea (~1979) Shoulder pain (~2015) Sleep apnea (~2012) Tinnitus (~1999) Surgical History Anesthesia History of carpal tunnel repair (~2008) History of tonsillectomy (~1958) Ovarian cyst (~1976) S/P ablation of atrial fibrillation (~2012) Status post discectomy (~2012) Status post hysterectomy (~1979) [place] teeth extracted Family History Child Awais's disease Grandmother Hypertension Mental health problem Mother Cancer Hypertension Grandfather Cancer Sister Age: 77 Melanoma Low TSH level TIA (transient ischemic attack) Father Cancer Grandfather No problems noted. Grandmother No problems noted. Sister No problems noted. Social History household members: spouse Smoking Status: Former smoker alcohol intake: never substance use type: does not use Smoking Status: Former smoker Substance Use Type: does not use Exam Narrative Exam Narrative: GENERAL: [66] year old patient appears stated age. Well-developed patient, in mild distress. HEAD: Atraumatic. Normocephalic. EYES: Pupils equal round and reactive. Extraocular motions intact. No scleral icterus. No injection or drainage. ENT: Nose without bleeding, purulent drainage. Throat without erythema, tonsillar hypertrophy or exudate. Airway patent. NECK: Trachea midline. Non tender CARDIOVASCULAR: Tachycardic but regular rhythm without murmurs, gallops, or rubs. RESPIRATORY: Clear to auscultation. Breath sounds equal bilaterally. No wheezes, rales, or rhonchi. GASTROINTESTINAL: Abdomen soft, non-tender, nondistended. EXTREMITIES: No edema or joint tenderness. BACK: Nontender without deformity or crepitance. No flank tenderness. NEURO: AOx3. SKIN: No rash or erythema of visible areas Initial Vital Signs Initial Vital Signs: Vital Signs Pulse Rate 150 H 09/11/21 13:34 Respiratory Rate 16 09/11/21 13:34 Pulse Oximetry 98 09/11/21 13:34 Course Orders Ordered: Discontinued Medications Acetaminophen (Acetaminophen 325 Mg Tablet) 650 mg PO Q6HR PRN PRN Reason: Fever/Mild Pain (1-3) Last Admin: 09/11/21 20:59 Dose: 650 mg Documented by: KAISER Apixaban (Apixaban 5 Mg Tablet) 5 mg PO BID [facility] Last Admin: 09/12/21 08:54 Dose: 5 mg Documented by: Admin: 09/11/21 20:59 Dose: 5 mg Documented by: SSACHRISTINEEL Admin: 09/11/21 18:19 Dose: 5 mg Documented by: KAREN Diltiazem HCl (Diltiazem 5 Mg/Ml Sdv) 10 mg IV NOW ONE Stop: 09/11/21 13:54 Last Admin: 09/11/21 14:00 Dose: 10 mg Documented by: JEANNE Diltiazem HCl (Diltiazem 30 Mg Tablet) 60 mg PO Q6HR [facility] Last Admin: 09/12/21 14:07 Dose: 60 mg Documented by: Admin: 09/12/21 06:47 Dose: Not Given Documented by: Admin: 09/12/21 00:16 Dose: 60 mg Documented by: Admin: 09/11/21 18:20 Dose: 60 mg Documented by: KAREN Heparin Sodium (Porcine) (Heparin 5,000 Unit/Ml Vial) 6,300 unit 80 unit/kg (6300 unit) IV NOW ONE Stop: 09/11/21 15:05 Last Admin: 09/11/21 15:36 Dose: 6,300 unit Documented by: JEANNE Sodium Chloride (Normal Saline 0.9%) 1,000 mls @ 1,000 mls/hr IV BOLUS ONE Stop: 09/11/21 14:52 Last Infusion: 09/11/21 18:35 Dose: 0 mls/hr Documented by: Infusion: 09/11/21 16:29 Dose: 150 mls/hr Documented by: Infusion: 09/11/21 14:40 Dose: 150 mls/hr Documented by: Admin: 09/11/21 14:00 Dose: 1,000 mls/hr Documented by: JEANNE Diltiazem HCl 125 mg/ Dextrose 125 mls @ 5 mls/hr IV TITRATE MACY; Protocol Last Titration: 09/11/21 17:14 Dose: 2.5 mg/hr, 2.5 mls/hr Documented by: Titration: 09/11/21 16:28 Dose: 5 mg/hr, 5 mls/hr Documented by: Admin: 09/11/21 14:37 Dose: 5 mg/hr, 5 mls/hr Documented by: JEANNE Heparin Sodium/Dextrose (Heparin Drip) 25,000 unit in 500 mls @ 20 mls/hr IV CONT MACY; Protocol Last Titration: 09/11/21 16:30 Dose: 0 units/hr, 0 mls/hr Documented by: Titration: 09/11/21 16:29 Dose: 1,000 units/hr, 20 mls/hr Documented by: Admin: 09/11/21 15:36 Dose: 1,000 units/hr, 20 mls/hr Documented by: CSIEDLE Ketorolac Tromethamine (Ketorolac 30 Mg/Ml Vial) 30 mg IV NOW ONE Stop: 09/12/21 10:40 Last Admin: 09/12/21 10:51 Dose: 30 mg Documented by: OBEY Levothyroxine Sodium (Levothyroxine 50 Mcg Tablet) 50 mcg PO DAILY [facility] Last Admin: 09/12/21 10:51 Dose: 50 mcg Documented by: OBEY Multivitamins (Multivitamin 1 Tablet) 1 tab PO DAILY [facility] Last Admin: 09/12/21 08:54 Dose: 1 tab Documented by: OBEY Sodium Chloride (Sodium Chloride 0.9% Flush) 10 ml IV PRN PRN PRN Reason: Flush Sodium Chloride (Sodium Chloride 0.9% Flush) 10 ml IV BID [facility] Last Admin: 09/12/21 10:51 Dose: 10 ml Documented by: Admin: 09/11/21 22:30 Dose: 10 ml Documented by: KAISER Vitamin D (Cholecalciferol (Vitamin D3) 1,000 Unit Tablet) 1,000 unit PO DAILY [facility] Last Admin: 09/12/21 08:54 Dose: 1,000 unit Documented by: OBEY Reevaluation(s) Reevaluation #1: Patient given Cardizem 10 mg and slowed to the mid 130s at which point she is noted to be alternating between rapid atrial fibrillation and atrial flutter. Thankfully, her ST depressions have improved. On further questioning the patient states that she thinks she is actually probably been going in and out of AFib for at least a few days. She is no longer appropriate for cardioversion and require hospitalization for rate control. Vital Signs Vital signs: Vital Signs - 8 hr 09/11/21 13:34 09/11/21 14:05 09/11/21 14:37 Pulse Rate 150 H 146 H 148 H Respiratory Rate 16 12 Blood Pressure 159/77 H Pulse Oximetry 98 99 MDM - Arrhythmia/Palpitations Lab Data Result diagrams: 09/11/21 14:15 09/11/21 14:15 Labs: Lab Results 09/11/21 09/11/21 09/11/21 Range/Units 14:10 14:15 14:15 WBC 7.1 (4.5-11.0) X10^3/uL RBC 4.75 (4.0-5.2) X10^6/uL Hgb 13.8 (12.0-16.0) g/dL Hct 40.9 (36-46) % MCV 86.1 (80-100) fL MCH 29.0 (26-34) PG MCHC 33.7 (30-36) % RDW 13.8 (11.6-14.8) % Plt Count 244 (150-400) X10^3/uL Neut % (Auto) 69.5 (50-75) % Lymph % (Auto) 21.6 L (25-40) % [place] % (Auto) 6.2 (3-14) % Eos % (Auto) 2.0 (2-4) % Baso % (Auto) 0.7 (0-2) % Neut # (Auto) 5000 (2961-9880) /uL Lymph # (Auto) 1500 (9696-5761) /uL [place] # (Auto) 400 (0-900) /uL Eos # (Auto) 100 (0-450) /uL Baso # (Auto) 100 (0-100) /uL PT 12.1 (10.1-12.7) SECONDS INR 1.1 (0.9-1.3) D-Dimer < 200 (<230) ng/mL Sodium (137-145) mmol/L Potassium (3.4-5.1) mmol/L Chloride (98-107) mmol/L Carbon Dioxide (22-32) mmol/L BUN (7-17) mg/dL Creatinine (0.52-1.04) mg/dL Estimated GFR (>60) mL/min BUN/Creatinine Ratio (6-22) Glucose (80-110) mg/dL Calcium (8.4-10.2) mg/dL Magnesium (1.6-2.3) mg/dL Total Bilirubin (0.2-1.3) mg/dL AST (14-36) IU/L ALT (<35) IU/L Alkaline Phosphatase (38-126) U/L Total Creatine Kinase (30-135) U/L CK-MB (CK-2) (<2.37) ng/mL CK-MB (CK-2) Rel Index (1.5-5.0) % Troponin I (0.01-0.034) ng/mL NT-Pro-B Natriuret Pep (<125) pg/mL Total Protein (6.3-8.2) g/dL Albumin (3.5-5.0) g/dL Globulin (1.7-4.1) g/dL Albumin/Globulin Ratio (1.0-2.8) Lipase (23-300) U/L TSH (0.47-4.68) uIU/mL SARS-CoV-2 (PCR) Negative (Negative) 09/11/21 09/11/21 09/11/21 Range/Units 14:15 14:15 14:15 WBC (4.5-11.0) X10^3/uL RBC (4.0-5.2) X10^6/uL Hgb (12.0-16.0) g/dL Hct (36-46) % MCV (80-100) fL MCH (26-34) PG MCHC (30-36) % RDW (11.6-14.8) % Plt Count (150-400) X10^3/uL Neut % (Auto) (50-75) % Lymph % (Auto) (25-40) % [place] % (Auto) (3-14) % Eos % (Auto) (2-4) % Baso % (Auto) (0-2) % Neut # (Auto) (6533-6778) /uL Lymph # (Auto) (1249-9624) /uL [place] # (Auto) (0-900) /uL Eos # (Auto) (0-450) /uL Baso # (Auto) (0-100) /uL PT (10.1-12.7) SECONDS INR (0.9-1.3) D-Dimer (<230) ng/mL Sodium 141 (137-145) mmol/L Potassium 4.0 (3.4-5.1) mmol/L Chloride 104 (98-107) mmol/L Carbon Dioxide 31 (22-32) mmol/L BUN 17 (7-17) mg/dL Creatinine 0.94 (0.52-1.04) mg/dL Estimated GFR 59.4 L (>60) mL/min BUN/Creatinine Ratio 18.1 (6-22) Glucose 109 (80-110) mg/dL Calcium 9.6 (8.4-10.2) mg/dL Magnesium 2.3 (1.6-2.3) mg/dL Total Bilirubin 0.3 (0.2-1.3) mg/dL AST 40 H (14-36) IU/L ALT 21 (<35) IU/L Alkaline Phosphatase 89 (38-126) U/L Total Creatine Kinase 167 H (30-135) U/L CK-MB (CK-2) 1.85 (<2.37) ng/mL CK-MB (CK-2) Rel Index 1.1 L (1.5-5.0) % Troponin I < 0.012 (0.01-0.034) ng/mL NT-Pro-B Natriuret Pep 89 (<125) pg/mL Total Protein 8.0 (6.3-8.2) g/dL Albumin 4.7 (3.5-5.0) g/dL Globulin 3.3 (1.7-4.1) g/dL Albumin/Globulin Ratio 1.4 (1.0-2.8) Lipase 115 (23-300) U/L TSH 3.15 (0.47-4.68) uIU/mL SARS-CoV-2 (PCR) (Negative) ECG Data Interpretation: Sinus tachycardia at rate of 149. There is no evidence of ectopy or ST segmental elevations, there are ST depressions in V2 and V3. Discharge Plan Departure Patient Disposition: Admitted As Inpatient Clinical Impression: Atrial fibrillation with RVR Admit Date/Time: 09/11/21 15:05 Admit Provider: Robert Alfonso
[2021-09-11] MEDS: SODIUM CHLORIDE 0.9% 1,000 ML 1000 ML IV (14:00)
[2021-09-11] MEDS: dilTIAZem 5 MG/ML SDV 10 MG IV (14:00)
[2021-09-11 14:23] LABS: Add Manual Diff / Slide Review NO; Basophils Absolute Auto 100 /uL (0-100); Basophils Percent Auto 0.7 % (0-2); Eosinophils Absolute Auto 100 /uL (0-450); Hematocrit 40.9 % (36-46); Hemoglobin 13.8 g/dL (12.0-16.0); Lymphocytes Absolute Auto 1500 /uL (1100-4500); Lymphocytes Percent Auto 21.6 % (25-40); Mean Corpuscular HGB Conc 33.7 % (30-36); Mean Corpuscular Volume 86.1 fL (80-100); Monocytes Absolute Auto 400 /uL (0-900); Monocytes Percent Auto 6.2 % (3-14); Neutrophils Absolute Auto 5000 /uL (1500-7000); Neutrophils Percent Auto 69.5 % (50-75); Platelet Count 244 X10^3/uL (150-400); Red Blood Cell Count 4.75 X10^6/uL (4.0-5.2); Red Cell Distribution Width 13.8 % (11.6-14.8); White Blood Cell Count 7.1 X10^3/uL (4.5-11.0)
[2021-09-11 14:30] LABS: INR 1.1 (0.9-1.3); Prothrombin Time 12.1 SECONDS (10.1-12.7)
[2021-09-11 14:34] LABS: COVID19 -Nasal RAPID Negative (Negative)
[2021-09-11 14:34] LABS: Magnesium 2.3 mg/dL (1.6-2.3)
[2021-09-11 14:37] LABS: Alanine Aminotransferase 21 IU/L (<35); Albumin 4.7 g/dL (3.5-5.0); Albumin Globulin Ratio 1.4 (1.0-2.8); Alkaline Phosphatase 89 U/L (38-126); Aspartate Aminotransferase 40 IU/L (14-36); BUN Creatinine Ratio 18.1 (6-22); Bilirubin Total 0.3 mg/dL (0.2-1.3); Blood Urea Nitrogen 17 mg/dL (7-17); Calcium 9.6 mg/dL (8.4-10.2); Carbon Dioxide 31 mmol/L (22-32); Chloride 104 mmol/L (98-107); Creatine Kinase 167 U/L (30-135); Estimated Glomerular Filt Rate 59.4 mL/min (>60); Globulin 3.3 g/dL (1.7-4.1); Glucose 109 mg/dL (80-110); HEMOLYSIS < 15 (0-50); Lipase 115 U/L (23-300); Sodium 141 mmol/L (137-145)
[2021-09-11] MEDS: dilTIAZem 125 MG in DEXTROSE 5 % IN WATER 100 ML IV (14:37)
[2021-09-11 14:41] LABS: D Dimer < 200 ng/mL (<230)
[2021-09-11 14:47] LABS: NT-proBNP (BNP-Adult 18+) 89 pg/mL (<125); Troponin I < 0.012 ng/mL (0.01-0.034)
[2021-09-11 14:52] LABS: CKMB % Relative Index 1.1 % (1.5-5.0); Creatine Kinase MB 1.85 ng/mL (<2.37)
[2021-09-11 15:18] LABS: TSH w/ Reflex to FT4 3.15 uIU/mL (0.47-4.68)
[2021-09-11] MEDS: HEPARIN DRIP 25,000 UNIT/500 ML IV.SOLN 20 UNIT IV (15:36)
[2021-09-11] MEDS: HEPARIN 5,000 UNIT/ML VIAL 6300 UNIT IV (15:36)
--- NOTE | 2021-09-11 17:47 | PM.HP.1 ---
History of Present Illness History of Present Illness Chief complaint: Heart palps, rapid pulse Narrative: 66yo female with a hx of atrial fibrillation in the past status post ablation (in 2012) that had elected to not continue on anticoagulation that presents with palpitations. The patient states this started around noon. She was painting a wall in her home when she felt her heart racing. She reports there's been intermittent episodes of this over the past 6 months, but this time, the palpitations, diaphoresis, slight nausea, and general anxiety persisted. That is when she decided to call EMS. The patient denies CP, SOB, headaches, abd pain, recent URI sxs, fever/chills, weight loss, lower extremity edema. She does endorse starting to drink oneal tea over the past few months, about 2 cups a day. She also endorses drinking a wine spritzer last night. She denies energy drink use, or any other caffeine intake. She denies illicit drug use. She denies nicotine use. PSH is remarkable for partial hysterectomy, tubal ligation bilaterally, and herniated disc repair. Family hx is positive for mother and father who of myelodysplastic syndrome and [facility] cancer, respectively. The patient lives nearby with her . Patient History Medical History Actinic keratosis Anxiety (~2017) Atrial fibrillation (~2009) Atrophic vulvovaginitis Back problem Carpal tunnel syndrome (~1999) Chicken pox Chronic back pain (~1979) GERD (gastroesophageal reflux disease) Hematuria (~2015) Hemorrhoid (~1972) Hypothyroidism (~1979) Irritable bowel syndrome with both constipation and diarrhea Measles Palpitations Rosacea (~1979) Shoulder pain (~2015) Sleep apnea (~2012) Tinnitus (~1999) Surgical History Anesthesia History of carpal tunnel repair (~2008) History of tonsillectomy (~1958) Ovarian cyst (~1976) S/P ablation of atrial fibrillation (~2012) Status post discectomy (~2012) Status post hysterectomy (~1979) [place] teeth extracted Family & Social History Family History Child Awais's disease Grandmother Hypertension Mental health problem Mother Cancer Hypertension Grandfather Cancer Sister Age: 77 Melanoma Low TSH level TIA (transient ischemic attack) Father Cancer Grandfather No problems noted. Grandmother No problems noted. Sister No problems noted. Social History: household members spouse Prior Living Arrangements House Safety & Behavioral: Feels Safe in Current Yes Environment Been Physically Hurt or No Threatened By a Person Suicidal Ideation Description None Suicide Plan Description No Plan Tobacco & Substance use: Tobacco type cigarettes Smoking Status Former smoker alcohol intake never Substance Use Type does not use Meds Home Medications and Allergies Home Medications Medication Instructions Recorded Confirmed Type azelaic acid 15 % topical gel 50 gm TOPICAL DAILY #0 08/17/17 09/11/21 History (Finacea) cholecalciferol (vitamin D3) 50 1 unit PO QDAY #0 08/17/17 09/11/21 History mcg (2,000 unit) tablet multivitamin (Multiple Vitamins) 1 tab PO QDAY #0 08/17/17 09/11/21 History vitamin B complex (B 1 tab PO QDAY #0 08/17/17 09/11/21 History Complex-Vitamin B12) fluticasone propionate 50 1 spray INTRANASAL QDAY #1 bot 01/24/19 09/11/21 Rx mcg/actuation nasal spray,suspension (Flonase Allergy Relief) levothyroxine 50 mcg tablet 50 mcg PO DAILY 09/21/19 09/11/21 History estradiol See Rx Instructions .ROUTE 08/12/21 09/11/21 Rx .COMPLEX #42.5 g Allergies Allergy/AdvReac Type Severity Reaction Status Date / Time azithromycin [AZITHROMYCIN] Allergy Unknown HIves/itchi Verified 03/21/20 10:06 ng hydrocodone [HYDROCODONE] Allergy Unknown nausea Verified 03/21/20 10:06 adhesive tape AdvReac Mild Rash Verified 03/21/20 10:06 Review of Systems Constitutional Comments: Denies fever/chills, weight loss, night sweats. Eyes Comments: Denies vision changes. Cardiovascular Comments: Endorses palpitations, diaphoresis. Denies CP, peripheral edema. Respiratory Comments: Denies SOB, cough, URI sxs. Gastrointestinal Comments: Denies abd pain, n/v/d, flank pain. Neurologic Comments: Denies headache, urinary/bowel incontinence, seizure-like activity. Exam Vital Signs (past 8 hours): - 09/11/21 13:34 09/11/21 14:05 09/11/21 14:15 Pulse Rate 150 H 146 H 150 H Respiratory Rate 16 12 18 Blood Pressure 139/86 Pulse Oximetry 98 99 98 09/11/21 14:30 09/11/21 14:37 09/11/21 14:41 Pulse Rate 123 H 148 H 129 H Respiratory Rate 15 15 Blood Pressure 159/77 H 159/77 H 146/87 H Pulse Oximetry 98 98 09/11/21 14:45 09/11/21 15:00 09/11/21 15:15 Pulse Rate 124 H 118 H 87 Respiratory Rate 14 15 13 Blood Pressure 141/85 H 143/77 H 132/72 Pulse Oximetry 98 98 97 09/11/21 15:30 09/11/21 15:45 09/11/21 16:00 Pulse Rate 85 93 H 87 Respiratory Rate 13 16 15 Blood Pressure 129/71 139/71 126/72 Pulse Oximetry 97 97 98 09/11/21 16:30 09/11/21 16:33 09/11/21 17:00 Pulse Rate 101 H 97 H 83 Respiratory Rate 21 22 30 H Blood Pressure 151/80 H Pulse Oximetry 87 L Oxygen Delivery Method Room Air Const Other: Sitting up in bed upon my entering the room, watching TV, and in no apparent, acute distress Eyes Other: No scleral icterus appreciated Neck Other: No carotid bruits appreciated Resp Other: Lungs clear to auscultation bilaterally Cardio Other: RRR, S1 and S2 heart sounds normal, with no extra heart sounds or murmurs appreciated, no peripheral edema GI Other: Soft, non-distended, non-tender, bowel sounds present Skin Other: No grossly abnormal skin lesions appreciated Extrem Other: Palpable and equally steady radial and dorsalis pedis pulses bilaterally Objective Labs Result Diagrams: 09/11/21 14:15 09/11/21 14:15 Labs: Laboratory Results - last 24 hr 09/11/21 09/11/21 09/11/21 14:10 14:15 14:15 WBC 7.1 RBC 4.75 Hgb 13.8 Hct 40.9 MCV 86.1 MCH 29.0 MCHC 33.7 RDW 13.8 Plt Count 244 Neut % (Auto) 69.5 Lymph % (Auto) 21.6 L [place] % (Auto) 6.2 Eos % (Auto) 2.0 Baso % (Auto) 0.7 Neut # (Auto) 5000 Lymph # (Auto) 1500 [place] # (Auto) 400 Eos # (Auto) 100 Baso # (Auto) 100 PT 12.1 INR 1.1 D-Dimer < 200 Sodium Potassium Chloride Carbon Dioxide BUN Creatinine Estimated GFR BUN/Creatinine Ratio Glucose Calcium Magnesium Total Bilirubin AST ALT Alkaline Phosphatase Total Creatine Kinase CK-MB (CK-2) CK-MB (CK-2) Rel Index Troponin I NT-Pro-B Natriuret Pep Total Protein Albumin Globulin Albumin/Globulin Ratio Lipase TSH SARS-CoV-2 (PCR) Negative 09/11/21 09/11/21 09/11/21 14:15 14:15 14:15 WBC RBC Hgb Hct MCV MCH MCHC RDW Plt Count Neut % (Auto) Lymph % (Auto) [place] % (Auto) Eos % (Auto) Baso % (Auto) Neut # (Auto) Lymph # (Auto) [place] # (Auto) Eos # (Auto) Baso # (Auto) PT INR D-Dimer Sodium 141 Potassium 4.0 Chloride 104 Carbon Dioxide 31 BUN 17 Creatinine 0.94 Estimated GFR 59.4 L BUN/Creatinine Ratio 18.1 Glucose 109 Calcium 9.6 Magnesium 2.3 Total Bilirubin 0.3 AST 40 H ALT 21 Alkaline Phosphatase 89 Total Creatine Kinase 167 H CK-MB (CK-2) 1.85 CK-MB (CK-2) Rel Index 1.1 L Troponin I < 0.012 NT-Pro-B Natriuret Pep 89 Total Protein 8.0 Albumin 4.7 Globulin 3.3 Albumin/Globulin Ratio 1.4 Lipase 115 TSH 3.15 SARS-CoV-2 (PCR) Assessment & Plan Assessment & Plan narrative: Assessment: 1. Atrial fibrillation with RVR, likely brought on by recent caffeine/EtOH intake 2. Hx of hypothyroidism 3. Hx of vitamin D deficiency 4. Hx of seasonal allergies Plan: 1. IV diltiazem on-board. Will start PO diltiazem 60 mg every 6 hours, immediate release, to help transition off IV diltiazem. Will likely start PO diltiazem extended release tomorrow. CHADSVASc: 2 (age, female). Will start Eliquis 5 mg bid for anticoagulation. 2. Will continue home levothyroxine 50 mcg daily. 3. Will continue home vitamin D replacement regimen. 4. Asymptomatic as of now, and can continue home Flonase if needed. VTE prophylaxis: Eliquis 5 mg bid for atrial fibrillation Code: Full Proxy: Patient's I have utilized all available, immediate resources to obtain, update, or review the patient's current medications Time Spent With Patient Critical Care time: I spent a total of [] minutes of critical care time on this patient's care today; this time is exclusive of procedural time. Quality VTE Deep Vein Thrombosis/Pulmonary Embolism Present on Admission: No MIPS - Admit I confirm the patient?s Advance Care Plan is present, Code status is documented, Surrogate decision maker is in patient?s record [If Yes, STOP here]: Yes
[2021-09-11] MEDS: APIXABAN 5 MG TABLET PO ×2 (18:19→20:59)
[2021-09-11] MEDS: dilTIAZem 30 MG TABLET 60 MG PO (18:20)
--- NOTE | 2021-09-11 18:28 | PC.ADMIT ---
[email or web address] Admission Note: Pt arrived via gurney from ED, able to ambulate to bathroom then to bed. Connected to monitoring equipment, oriented to room and call light system. Heparin gtt stopped, Dilt gtt infusing as ordered, Dr Alfonso notified pt is in room, bed low and locked call light within reach, will continue to monitor. The patient,Trish Wei,66 y/o, was given written information regarding hospital policies, unit procedures and contact persons. Patient's smoking status: Former smoker. Vital Signs - 8 hr 09/11/21 13:34 09/11/21 14:05 09/11/21 14:15 Pulse Rate 150 H 146 H 150 H Respiratory Rate 16 12 18 Blood Pressure 139/86 Pulse Oximetry 98 99 98 09/11/21 14:30 09/11/21 14:37 09/11/21 14:41 Pulse Rate 123 H 148 H 129 H Respiratory Rate 15 15 Blood Pressure 159/77 H 159/77 H 146/87 H Pulse Oximetry 98 98 09/11/21 14:45 09/11/21 15:00 09/11/21 15:15 Pulse Rate 124 H 118 H 87 Respiratory Rate 14 15 13 Blood Pressure 141/85 H 143/77 H 132/72 Pulse Oximetry 98 98 97 09/11/21 15:30 09/11/21 15:45 09/11/21 16:00 Pulse Rate 85 93 H 87 Respiratory Rate 13 16 15 Blood Pressure 129/71 139/71 126/72 Pulse Oximetry 97 97 98 09/11/21 16:30 09/11/21 16:33 09/11/21 17:00 Pulse Rate 101 H 97 H 83 Respiratory Rate 21 22 30 H Blood Pressure 151/80 H Pulse Oximetry 87 L 09/11/21 18:20 Pulse Rate 81 Respiratory Rate Blood Pressure 131/73 Pulse Oximetry
[2021-09-11] MEDS: ACETAMINOPHEN 325 MG TABLET 650 MG PO (20:59)
[2021-09-11] MEDS: SODIUM CHLORIDE 0.9% FLUSH 10 ML IV (22:30)
[2021-09-12] VITALS (9 sets, daily range): BP systolic 109–117; BP diastolic 61–66; PULSE 56–63; RESP 13–20; TEMP 36.4–37.3; O2SAT 98–99
[2021-09-12] MEDS: dilTIAZem 30 MG TABLET 60 MG PO ×2 (00:16→14:07)
--- NOTE | 2021-09-12 06:38 | PC.NURSE ---
Shift Note-Diltiazem gtt off at 1999, 60mg PO diltiazem has been started, patient remains in SR, has 1st degree AVB, SB 55-58 in am, BP 109/63, 0600 dose held. Denies dizziness when up to BR. Tylenol given for headache.
[2021-09-12] MEDS: APIXABAN 5 MG TABLET PO (08:54)
[2021-09-12] MEDS: MULTIVITAMIN 1 TABLET 1 TAB PO (08:54)
[2021-09-12] MEDS: CHOLECALCIFEROL (VITAMIN D3) 1,000 UNIT TABLET 1000 UNIT PO (08:54)
[2021-09-12] MEDS: KETOROLAC 30 MG/ML VIAL IV (10:51)
[2021-09-12] MEDS: LEVOTHYROXINE 50 MCG TABLET PO (10:51)
[2021-09-12] MEDS: SODIUM CHLORIDE 0.9% FLUSH 10 ML IV (10:51)
--- NOTE | 2021-09-12 10:53 | CM.DANOTE ---
Discharge Assessment Note: Patient is 66yo Female admitted for atrial fibrillation with RVR assigned to hospitalist team. Patient has history of anxiety, chronic back pain, IBS, hypothyroidism, and sleep apnea. Patient has had prior ablation of atrial fibrillation approxmately 2012. Patient resides at home with her spouse and is fully independent at baseline. Patient has not SNF or HH history. Patient anticipates discharging home with spouse providing transportation. Cremator follow up post discharge is recommended by hospitalist. Patient provided with local resources to schedule this appointment. INS: Medicare with [facility] [employer] Ins secondary. Plan: patient is anticipated to discharge home with spouse via POV. No discharge needs identified at time of assessment. FILTER TANK TENDER HELPER HEAD will continue to follow throughout clinical course of admission. Richie GREWAL Discharge Planning/Care Management CM Discharge Assessment Start: 09/12/21 10:51 Freq: Status: Active Protocol: Document 09/12/21 10:51 SHAYLA (Rec: 09/12/21 10:53 SHAYLA [email or web address]) Discharge Planning Assessment Assigned Dress Shoe Inspector Richie GREWAL DPOA/Assigned Designee Name n/a Advance Directives? Yes Advance Directives on File No History Provided By Patient,Medical Record Has Patient been admitted in last 30 No days? Prior Living Arrangements House Household Members spouse Type of transporation used prior to Drives own vehicle admit Independent with ADL's Yes Is patient alert and oriented? Yes Comment fully independent at baseline Caregiver for Another No Barriers to Discharge No Discharge Plan Home Transportation Arrangement spouse will transport patient home Referrals Initiated None needed Whiteboard Updated in Patient Room with Yes name and ext. # of Dress Shoe Inspector Review Status In Process Next Review Type Continued Stay Review
--- NOTE | 2021-09-12 13:12 | P.PN_ITS ---
Subjective Subjective Interval history: Patient reports feeling well this morning. She denies any recurrence of her palpitations, CP, SOB. She reports wanting to go home. Exam Vital Signs (past 8 hours): - 09/12/21 06:47 09/12/21 07:00 09/12/21 09:22 Pulse Rate 58 L Blood Pressure 109/63 Pulse Oximetry 98 98 Oxygen Delivery Method Room Air Oxygen Flow Rate 0 Narrative Exam Narrative: Const Other: Sitting up in bed upon my entering the room, watching TV with at bedside, and in no apparent, acute distress Eyes Other: No scleral icterus appreciated Neck Other: No carotid bruits appreciated Resp Other: Lungs clear to auscultation bilaterally Cardio Other: RRR, S1 and S2 heart sounds normal, with no extra heart sounds or murmurs appreciated, no peripheral edema GI Other: Soft, non-distended, non-tender, bowel sounds present Skin Other: No grossly abnormal skin lesions appreciated Extrem Other: Palpable and equally steady radial and dorsalis pedis pulses bilaterally Objective Labs Result Diagrams: 09/11/21 14:15 09/11/21 14:15 Labs: Laboratory Results - last 24 hr 09/11/21 09/11/21 09/11/21 14:10 14:15 14:15 WBC 7.1 RBC 4.75 Hgb 13.8 Hct 40.9 MCV 86.1 MCH 29.0 MCHC 33.7 RDW 13.8 Plt Count 244 Neut % (Auto) 69.5 Lymph % (Auto) 21.6 L [place] % (Auto) 6.2 Eos % (Auto) 2.0 Baso % (Auto) 0.7 Neut # (Auto) 5000 Lymph # (Auto) 1500 [place] # (Auto) 400 Eos # (Auto) 100 Baso # (Auto) 100 PT 12.1 INR 1.1 D-Dimer < 200 Sodium Potassium Chloride Carbon Dioxide BUN Creatinine Estimated GFR BUN/Creatinine Ratio Glucose Calcium Magnesium Total Bilirubin AST ALT Alkaline Phosphatase Total Creatine Kinase CK-MB (CK-2) CK-MB (CK-2) Rel Index Troponin I NT-Pro-B Natriuret Pep Total Protein Albumin Globulin Albumin/Globulin Ratio Lipase TSH Nasal Screen MRSA (PCR) SARS-CoV-2 (PCR) Negative 09/11/21 09/11/21 09/11/21 14:15 14:15 14:15 WBC RBC Hgb Hct MCV MCH MCHC RDW Plt Count Neut % (Auto) Lymph % (Auto) [place] % (Auto) Eos % (Auto) Baso % (Auto) Neut # (Auto) Lymph # (Auto) [place] # (Auto) Eos # (Auto) Baso # (Auto) PT INR D-Dimer Sodium 141 Potassium 4.0 Chloride 104 Carbon Dioxide 31 BUN 17 Creatinine 0.94 Estimated GFR 59.4 L BUN/Creatinine Ratio 18.1 Glucose 109 Calcium 9.6 Magnesium 2.3 Total Bilirubin 0.3 AST 40 H ALT 21 Alkaline Phosphatase 89 Total Creatine Kinase 167 H CK-MB (CK-2) 1.85 CK-MB (CK-2) Rel Index 1.1 L Troponin I < 0.012 NT-Pro-B Natriuret Pep 89 Total Protein 8.0 Albumin 4.7 Globulin 3.3 Albumin/Globulin Ratio 1.4 Lipase 115 TSH 3.15 Nasal Screen MRSA (PCR) SARS-CoV-2 (PCR) 09/11/21 16:43 WBC RBC Hgb Hct MCV MCH MCHC RDW Plt Count Neut % (Auto) Lymph % (Auto) [place] % (Auto) Eos % (Auto) Baso % (Auto) Neut # (Auto) Lymph # (Auto) [place] # (Auto) Eos # (Auto) Baso # (Auto) PT INR D-Dimer Sodium Potassium Chloride Carbon Dioxide BUN Creatinine Estimated GFR BUN/Creatinine Ratio Glucose Calcium Magnesium Total Bilirubin AST ALT Alkaline Phosphatase Total Creatine Kinase CK-MB (CK-2) CK-MB (CK-2) Rel Index Troponin I NT-Pro-B Natriuret Pep Total Protein Albumin Globulin Albumin/Globulin Ratio Lipase TSH Nasal Screen MRSA (PCR) Negative for mrsa SARS-CoV-2 (PCR) [facility] Medical History Actinic keratosis Anxiety (~2017) Atrial fibrillation (~2009) Atrophic vulvovaginitis Back problem Carpal tunnel syndrome (~1999) Chicken pox Chronic back pain (~1979) GERD (gastroesophageal reflux disease) Hematuria (~2015) Hemorrhoid (~1972) Hypothyroidism (~1979) Irritable bowel syndrome with both constipation and diarrhea Measles Palpitations Rosacea (~1979) Shoulder pain (~2015) Sleep apnea (~2012) Tinnitus (~1999) Surgical History Anesthesia History of carpal tunnel repair (~2008) History of tonsillectomy (~1958) Ovarian cyst (~1976) S/P ablation of atrial fibrillation (~2012) Status post discectomy (~2012) Status post hysterectomy (~1979) [place] teeth extracted Family History Child Awais's disease Grandmother Hypertension Mental health problem Mother Cancer Hypertension Grandfather Cancer Sister Age: 77 Melanoma Low TSH level TIA (transient ischemic attack) Father Cancer Grandfather No problems noted. Grandmother No problems noted. Sister No problems noted. Social History household members: spouse Smoking Status: Former smoker alcohol intake: never substance use type: does not use Assessment & Plan Assessment & Plan narrative: Assessment: 1. Atrial fibrillation with RVR, likely brought on by recent caffeine/EtOH intake 2. Hx of hypothyroidism 3. Hx of vitamin D deficiency 4. Hx of seasonal allergies Plan: 1. Improved inpatient on IV diltiazem and PO diltiazem short-acting. Will discharge on PO diltiazem 60 mg once daily extended release. CHADSVASc: 2 (age, female). Will start Eliquis 5 mg bid for anticoagulation. 2. Continue home levothyroxine 50 mcg daily. 3. Continue home vitamin D replacement regimen. 4. Asymptomatic as of now, and can continue home Flonase if needed. VTE prophylaxis: Eliquis 5 mg bid for atrial fibrillation Time Spent With Patient Critical Care time: I spent a total of [] minutes of critical care time on this patient's care today; this time is exclusive of procedural time. Quality VTE Deep Vein Thrombosis/Pulmonary Embolism Present on Admission: No
--- NOTE | 2021-09-12 13:15 | P.DS_ITS ---
History of Present Illness History of Present Illness Chief complaint: Heart palps, rapid pulse Narrative: 66yo female with a hx of atrial fibrillation in the past status post ablation (in 2012) that had elected to not continue on anticoagulation that presents with palpitations. The patient states this started around noon. She was painting a wall in her home when she felt her heart racing. She reports there's been intermittent episodes of this over the past 6 months, but this time, the palpitations, diaphoresis, slight nausea, and general anxiety persisted. That is when she decided to call EMS. The patient denies CP, SOB, headaches, abd pain, recent URI sxs, fever/chills, weight loss, lower extremity edema. She does endorse starting to drink oneal tea over the past few months, about 2 cups a day. She also endorses drinking a wine spritzer last night. She denies energy drink use, or any other caffeine intake. She denies illicit drug use. She denies nicotine use. PSH is remarkable for partial hysterectomy, tubal ligation bilaterally, and herniated disc repair. Family hx is positive for mother and father who of myelodysplastic syndrome [facility], [facility]. The patient lives nearby with her . Discharge Providers Provider Date of admission: 09/11/21 15:05 Discharge Date: 09/12/21 Primary care physician: Donnell Plummer MD Discharge provider: Robert Alfonso MD Summary Hospital Course Discharge Diagnosis: Assessment: 1. Atrial fibrillation with RVR, likely brought on by recent caffeine/EtOH intake 2. Hx of hypothyroidism 3. Hx of vitamin D deficiency 4. Hx of seasonal allergies Plan: 1. Improved inpatient on IV diltiazem and PO diltiazem short-acting. Will discharge on PO diltiazem 60 mg once daily extended release. CHADSVASc: 2 (age, female). Will start Eliquis 5 mg bid for anticoagulation. 2. Continue home levothyroxine 50 mcg daily. 3. Continue home vitamin D replacement regimen. 4. Asymptomatic as of now, and can continue home Flonase if needed. Exam Vital Signs (past 8 hours): - 09/12/21 06:47 09/12/21 07:00 09/12/21 09:22 Pulse Rate 58 L Blood Pressure 109/63 Pulse Oximetry 98 98 Oxygen Delivery Method Room Air Oxygen Flow Rate 0 Objective Labs Result Diagrams: 09/11/21 14:15 09/11/21 14:15 Labs: Laboratory Results - last 24 hr 09/11/21 09/11/21 09/11/21 14:10 14:15 14:15 WBC 7.1 RBC 4.75 Hgb 13.8 Hct 40.9 MCV 86.1 MCH 29.0 MCHC 33.7 RDW 13.8 Plt Count 244 Neut % (Auto) 69.5 Lymph % (Auto) 21.6 L [place] % (Auto) 6.2 Eos % (Auto) 2.0 Baso % (Auto) 0.7 Neut # (Auto) 5000 Lymph # (Auto) 1500 [place] # (Auto) 400 Eos # (Auto) 100 Baso # (Auto) 100 PT 12.1 INR 1.1 D-Dimer < 200 Sodium Potassium Chloride Carbon Dioxide BUN Creatinine Estimated GFR BUN/Creatinine Ratio Glucose Calcium Magnesium Total Bilirubin AST ALT Alkaline Phosphatase Total Creatine Kinase CK-MB (CK-2) CK-MB (CK-2) Rel Index Troponin I NT-Pro-B Natriuret Pep Total Protein Albumin Globulin Albumin/Globulin Ratio Lipase TSH Nasal Screen MRSA (PCR) SARS-CoV-2 (PCR) Negative 09/11/21 09/11/21 09/11/21 14:15 14:15 14:15 WBC RBC Hgb Hct MCV MCH MCHC RDW Plt Count Neut % (Auto) Lymph % (Auto) [place] % (Auto) Eos % (Auto) Baso % (Auto) Neut # (Auto) Lymph # (Auto) [place] # (Auto) Eos # (Auto) Baso # (Auto) PT INR D-Dimer Sodium 141 Potassium 4.0 Chloride 104 Carbon Dioxide 31 BUN 17 Creatinine 0.94 Estimated GFR 59.4 L BUN/Creatinine Ratio 18.1 Glucose 109 Calcium 9.6 Magnesium 2.3 Total Bilirubin 0.3 AST 40 H ALT 21 Alkaline Phosphatase 89 Total Creatine Kinase 167 H CK-MB (CK-2) 1.85 CK-MB (CK-2) Rel Index 1.1 L Troponin I < 0.012 NT-Pro-B Natriuret Pep 89 Total Protein 8.0 Albumin 4.7 Globulin 3.3 Albumin/Globulin Ratio 1.4 Lipase 115 TSH 3.15 Nasal Screen MRSA (PCR) SARS-CoV-2 (PCR) 09/11/21 16:43 WBC RBC Hgb Hct MCV MCH MCHC RDW Plt Count Neut % (Auto) Lymph % (Auto) [place] % (Auto) Eos % (Auto) Baso % (Auto) Neut # (Auto) Lymph # (Auto) [place] # (Auto) Eos # (Auto) Baso # (Auto) PT INR D-Dimer Sodium Potassium Chloride Carbon Dioxide BUN Creatinine Estimated GFR BUN/Creatinine Ratio Glucose Calcium Magnesium Total Bilirubin AST ALT Alkaline Phosphatase Total Creatine Kinase CK-MB (CK-2) CK-MB (CK-2) Rel Index Troponin I NT-Pro-B Natriuret Pep Total Protein Albumin Globulin Albumin/Globulin Ratio Lipase TSH Nasal Screen MRSA (PCR) Negative for mrsa SARS-CoV-2 (PCR) [facility] Medical History Actinic keratosis Anxiety (~2017) Atrial fibrillation (~2009) Atrophic vulvovaginitis Back problem Carpal tunnel syndrome (~1999) Chicken pox Chronic back pain (~1979) GERD (gastroesophageal reflux disease) Hematuria (~2015) Hemorrhoid (~1972) Hypothyroidism (~1979) Irritable bowel syndrome with both constipation and diarrhea Measles Palpitations Rosacea (~1979) Shoulder pain (~2015) Sleep apnea (~2012) Tinnitus (~1999) Surgical History Anesthesia History of carpal tunnel repair (~2008) History of tonsillectomy (~1958) Ovarian cyst (~1976) S/P ablation of atrial fibrillation (~2012) Status post discectomy (~2012) Status post hysterectomy (~1979) [place] teeth extracted Family History Child Awais's disease Grandmother Hypertension Mental health problem Mother Cancer Hypertension Grandfather Cancer Sister Age: 77 Melanoma Low TSH level TIA (transient ischemic attack) Father Cancer Grandfather No problems noted. Grandmother No problems noted. Sister No problems noted. Social History household members: spouse Smoking Status: Former smoker alcohol intake: never substance use type: does not use Discharge Assessment & Plan Assessment and Plan Assessment: Assessment: 1. Atrial fibrillation with RVR, likely brought on by recent caffeine/EtOH intake 2. Hx of hypothyroidism 3. Hx of vitamin D deficiency 4. Hx of seasonal allergies Plan: 1. Improved inpatient on IV diltiazem and PO diltiazem short-acting. Will discharge on PO diltiazem 60 mg once daily extended release. CHADSVASc: 2 (age, female). Will start Eliquis 5 mg bid for anticoagulation. 2. Continue home levothyroxine 50 mcg daily. 3. Continue home vitamin D replacement regimen. 4. Asymptomatic as of now, and can continue home Flonase if needed. Discharge Plan Discharge Plan Patient Disposition: Home Discharge orders & Medications Prescriptions: New Eliquis 5 mg Tablet 5 mg PO BID 90 Days Qty: 180 4RF diltiazem HCl 60 mg capsule,extended release 12 hr 60 mg PO DAILY 90 Days Qty: 90 4RF Continued multivitamin [Multiple Vitamins] 1 EACH tablet 1 tab PO QDAY Qty: 0 0RF azelaic acid [Finacea] 50 GM gel 50 gm topical DAILY Qty: 0 0RF cholecalciferol (vitamin D3) 2,000 UNIT tablet 1 unit PO QDAY Qty: 0 0RF vitamin B complex [B Complex-Vitamin B12] 1 EACH tablet 1 tab PO QDAY Qty: 0 0RF fluticasone propionate [Flonase Allergy Relief] 50 mcg/actuation spray,suspension 1 spray Intranasal QDAY Qty: 1 0RF Rx Instructions: Due for follow up estradiol 0.01 % (0.1 mg/gram) cream See Rx Instructions .ROUTE .COMPLEX Qty: 42.5 6RF Dose Instruction: INSERT 0.5 GRAMS INTO VAGINA AND A SMALL AMOUNT EXTERNALLY TWICE WEEKLY Rx Instructions: INSERT 0.5 GRAMS INTO VAGINA AND A SMALL AMOUNT EXTERNALLY TWICE WEEKLY levothyroxine 50 mcg tablet 50 mcg PO DAILY 0RF Rx Instructions: TAKE 1 TABLET BY MOUTH ONCE DAILY IN THE MORNING Follow up/Referrals: Donnell Plummer MD [Primary Care Provider] - Discharge Data Primary Care Provider: Donnell Plummer Quality VTE Deep Vein Thrombosis/Pulmonary Embolism Present on Admission: No
--- NOTE | 2021-09-12 14:37 | PC.NURSE ---
Addendum entered by Charity Gomez R.N. 09/12/21 15:15: Post discharge-Pt called to let us know [facility] in [place] was out of ER DIltiazem, Rx called to [facility] that has stock available. Pt also has 30days of eliquis, but insurance does not cover and Pt will need to find plan for after care. Original Note: Pt tolerating meds ok, held 0600 dose of PO dilt. as Pt had been bradycardic. NSR 80's at present. Gave noon dose and d/c patient home with ER diltazem. Pt education provided for next dose and care at home. Additional pressure wrap for PIV removal R wrist.
== END 2021-09-12 14:57 | disposition home or self-care (01) ==
LOC: ED 14:44 → ICU 09-12 08:02 → AC 09-12 14:26
PROVIDERS: Admitting Provider Student in an Organized Health Care Education/Training Program; Emergency Provider Emergency Medicine; PCP Internal Medicine; Referring Provider Emergency Medicine; Visit Provider Student in an Organized Health Care Education/Training Program
DX: I48.91 Unspecified atrial fibrillation (principal); E03.9 Hypothyroidism, unspecified; E55.9 Vitamin D deficiency, unspecified; Z20.822 Contact with and (suspected) exposure to COVID-19
CPT/HCPCS: 36415; 71045; 80053; 82550; 82553; 83690; 83735; 83880; 84443; 84484; 85025; 85379; 85610; 87635; 87797; 93005; 93010; 94760; 96361; 96365; 96366; 96368; 96375; 96376; 99284; C9803; G0378; J1644; J1885

== ENCOUNTER → 2022-01-07 07:51 | Outpatient (CLI) | payer MEDICARE, OTHER, SELFPAY ==
[2021-09-11 16:46] VITALS: BMI 26.3
--- NOTE | 2022-01-07 | DI.ECHO.S_ITS ---
[facility]---------+ [facility] +---------+ : : [address] : : : : [id number] : : : : Phone: [phone] Echocardiogram Report + + :Name: JOB CASTILLO Study Date: 01/07/2022 Height: 68 in : :[facility] ReadingLocation: Weight: 172 lb : : Gender: Female BSA: 1.9 m2 : :: 1955 Age: 66 yrs BP: 123/80 mmHg: :Reason For Study: ATRIAL FIBRILLATION : :Ordering Physician: Marisa GRIDERformed By: Selena Davis : :Referring: BATSHEVA GRIDER : + + Interpretation Summary 1) Normal left ventricular thickness and size with low normal systolic function (EF 50-55%). 2) Normal right ventricular size and function. 3) The left atrium is moderately dilated. 4) No significant valvular abnormalities. 5) No prior Echo available for comparison. Procedure: A two-dimensional transthoracic echocardiogram with color flow and Doppler was performed. The study quality was technically adequate. There is no prior echocardiogram noted for this patient. The patient was in sinus bradycardia with heart rates between 57-63 bpm during the exam. The patient had occasional PVCs during the exam. Left Ventricle: The left ventricle is normal in size and wall thickness. The ejection fraction is estimated to be 50-55%. There are no focal wall motion abnormalities. Right Ventricle: The right ventricle is normal in size and function. Atria: The left atrium is moderately dilated. Right atrial size is normal. There is no Doppler evidence for an interatrial shunt. Mitral Valve: The mitral valve is normal in structure and function. There is mild mitral regurgitation. Aortic Valve: The aortic valve is trileaflet. The aortic valve opens well. There is no aortic valve stenosis. No aortic regurgitation is present. Tricuspid Valve: The tricuspid valve leaflets are thin and pliable. There is mild to moderate tricuspid regurgitation. The right ventricular systolic pressure is estimated to be at least 26 mmHg based on an estimated right atrial pressure of 3 mm Hg. Pulmonic Valve: The pulmonic valve leaflets are thin and pliable; valve motion is normal. There is mild pulmonic regurgitation. Great Vessels: The aortic root is normal size. The ascending aorta is at the upper limits of normal in size. The aortic arch is at the upper limits of normal in size. The IVC is of normal diameter and collapses greater than 50% with a sniff. This suggests a low right atrial pressure of 3 mm Hg. Pericardium/ Pleura There is no pericardial effusion. There is no pleural effusion. MMode/2D Measurements & Calculations LVIDd: 4.8 cm LVOT diam: 2.1 cm LVIDs: 3.3 cm Ao root diam: 3.4 cm FS: 31.3 % asc Aorta Diam: 3.9 cm IVSd: 0.92 cm Ao Arch Diam (Prox Trans): 3.4 cm LVPWd: 0.92 cm LV patel. diameter/BSA (cm/m^2): 2.5 LV sys. diameter/BSA (cm/m^2): 1.7 LA A2 area: 28.6 cm2 RA long axis: 5.4 cm LA A4 area: 21.1 cm2 RA area: 17.7 cm2 LA length (vol): 5.6 cm RA vol: 49.2 ml LA vol: 90.7 ml RA : 25.7 ml/m2 LA vol index: 47.3 ml/m2 IVC diam: 1.4 cm RVD1 (basal): 3.4 cm RVD2 (mid): 3.4 cm TAPSE: 2.3 cm Doppler Measurements & Calculations Ao V2 max: 116.0 cm/sec LVOT Max Bhaskar: 80.6 cm/sec Ao V2 mean: 81.2 cm/sec LV V1 max P.6 mmHg Ao max P.4 mmHg LV V1 VTI: 18.5 cm Ao mean P.0 mmHg LENNIE(I,D): 2.4 cm2 Ao V2 VTI: 27.1 cm LENNIE(V,D): 2.4 cm2 sev ratio: 0.68 LENNIE indexed to BSA (cm^2/m^2): 1.3 MV E max bhaskar: 75.5 cm/sec TR max bhaskar: 238.5 cm/sec MV A max bhaskar: 36.6 cm/sec TR max P.8 mmHg MV E/A: 2.1 PA V2 max: 70.0 cm/sec Med Peak E' Bhaskar: 8.7 cm/sec PA V2 mean: 50.2 cm/sec E/E' med: 8.7 PA mean P.1 mmHg Lat Peak E' Bhaskar: 11.1 cm/sec PA pr(Accel): 3.6 mmHg E/E' lat: 6.8 E/e' average: 7.7 MV dec time: 0.23 sec SV(LVOT): 64.9 ml Reading Physician:03:18 PM
== END ==
PROVIDERS: PCP Internal Medicine; Referring Provider Internal Medicine Cardiovascular Disease; Visit Provider Internal Medicine Cardiovascular Disease
DX: I48.91 Unspecified atrial fibrillation (principal); I08.1 Rheumatic disorders of both mitral and tricuspid valves
CPT/HCPCS: 93306

== ENCOUNTER → 2022-01-13 10:39 | Outpatient (CLI) | payer MEDICARE, OTHER, SELFPAY ==
[2021-09-11 16:46] VITALS: BMI 26.3
[2022-01-13 12:54] LABS: Free T4, Direct Thyroxine 0.95 ng/dL (0.78-2.19)
[2022-01-13 13:08] LABS: Thyroid Stimulating Hormone 2.31 uIU/mL (0.47-4.68)
== END ==
PROVIDERS: PCP Internal Medicine; Referring Provider Physician Assistant; Visit Provider Physician Assistant
DX: E03.9 Hypothyroidism, unspecified (principal)
CPT/HCPCS: 36415; 84439; 84443

== ENCOUNTER → 2022-01-16 14:57 | Outpatient (CLI) | payer MEDICARE, OTHER, SELFPAY ==
[2021-09-11 16:46] VITALS: BMI 26.3
--- NOTE | 2022-01-16 | DI.MG.S_ITS ---
BILATERAL DIGITAL SCREENING MAMMOGRAM 3D/2D WITH CAD: 01/16/2022 CLINICAL: Routine screening. Family history of breast cancer. Comparison is made to exams dated: 01/09/2021 mammogram, 01/02/2020 mammogram, 10/18/2018 mammogram, and 10/15/2017 mammogram - [facility]. There are scattered fibroglandular elements in both breasts. Current study was also evaluated with a Computer Aided Detection (CAD) system. No significant masses, calcifications, or other findings are seen in either breast. There has been no significant interval change. IMPRESSION: NEGATIVE There is no mammographic evidence of malignancy. A 1 year screening mammogram is recommended. This exam was interpreted at Station ID: [id number]. NOTE: For mammograms, a report in lay terms will be sent to the patient. Approximately 15% of breast malignancies will not be visualized mammographically. In the management of a palpable breast mass, a negative mammogram must not discourage biopsy of a clinically suspicious lesion. Electronically Signed By: Luis Daniel roblero/sarahi:01/16/2022 16:48:48 letter sent: Normal Exam ACR BI-RADS Category 1: Negative 3341F
== END ==
PROVIDERS: PCP Internal Medicine; Referring Provider Internal Medicine; Visit Provider Internal Medicine
DX: Z12.31 Encounter for screening mammogram for malignant neoplasm of breast (principal); Z80.3 Family history of malignant neoplasm of breast
CPT/HCPCS: 77063; 77067

== ENCOUNTER → 2022-07-31 07:24 | Outpatient (CLI) | payer MEDICARE, OTHER, SELFPAY ==
[2021-09-11 16:46] VITALS: BMI 26.3
[2022-07-31 09:06] LABS: Hematocrit 39.1 % (36-46); Mean Corpuscular HGB Conc 33.2 % (30-36); Mean Corpuscular Hemoglobin 28.8 PG (26-34); Mean Corpuscular Volume 86.9 fL (80-100); Platelet Count 264 X10^3/uL (150-400); Red Cell Distribution Width 14.6 % (11.6-14.8); White Blood Cell Count 4.6 X10^3/uL (4.5-11.0)
[2022-07-31 09:43] LABS: Alanine Aminotransferase 27 IU/L (<35); Albumin 4.2 g/dL (3.5-5.0); Albumin Globulin Ratio 1.4 (1.0-2.8); Alkaline Phosphatase 76 U/L (38-126); Aspartate Aminotransferase 35 IU/L (14-36); BUN Creatinine Ratio 17.2 (6-22); Bilirubin Total 0.6 mg/dL (0.2-1.3); Blood Urea Nitrogen 15 mg/dL (7-17); Carbon Dioxide 31 mmol/L (22-32); Chloride 100 mmol/L (98-107); Cholesterol 225 mg/dL (140-199); Estimated Glomerular Filt Rate > 60 mL/min (>60); Glucose 88 mg/dL (80-110); HDL Cholesterol 79 mg/dL (40-60); HEMOLYSIS < 15 (0-50); LDL Cholesterol Calculated 131 mg/dL (<100); Potassium 4.7 mmol/L (3.4-5.1); Sodium 137 mmol/L (137-145); Total Protein 7.2 g/dL (6.3-8.2); Triglycerides 73 mg/dL (35-150)
== END ==
PROVIDERS: PCP Internal Medicine; Referring Provider Internal Medicine; Visit Provider Internal Medicine
DX: E78.2 Mixed hyperlipidemia (principal); I48.0 Paroxysmal atrial fibrillation
CPT/HCPCS: 36415; 80053; 80061; 85027

== ENCOUNTER → 2022-10-08 08:54 | Outpatient (CLI) | payer MEDICARE, OTHER, SELFPAY ==
[2021-09-11 16:46] VITALS: BMI 26.3
[2022-10-08 10:58] LABS: COVID-19 CEPHEID 4-PLEX PCR Negative (Negative); Influenza A - CEPHEID Flu A NEGATIVE (NEGATIVE); Influenza B - CEPHEID Flu B NEGATIVE (NEGATIVE); Respiratory Syncytial Virus Negative (Negative)
== END ==
PROVIDERS: PCP Internal Medicine; Visit Provider Nurse Practitioner Family
DX: R05.1 Acute cough (principal)
CPT/HCPCS: 0241U

== ENCOUNTER → 2023-02-04 10:46 | Outpatient (CLI) | payer MEDICARE, OTHER, SELFPAY ==
[2021-09-11 16:46] VITALS: BMI 26.3
--- NOTE | 2023-02-04 | DI.MG.S_ITS ---
BILATERAL DIGITAL SCREENING MAMMOGRAM 3D/2D WITH CAD: 02/04/2023 CLINICAL: Routine screening. Family history of breast cancer. Comparison is made to exams dated: 01/16/2022 mammogram, 01/09/2021 mammogram, and 01/02/2020 mammogram - [facility]. Both breasts are heterogeneously dense, which may obscure small masses (category c / 51-75% glandular tissue). Current study was also evaluated with a Computer Aided Detection (CAD) system. No significant masses, calcifications, or other findings are seen in either breast. There has been no significant interval change. IMPRESSION: NEGATIVE There is no mammographic evidence of malignancy. A 1 year screening mammogram is recommended. Based on the Tyrer Cuzick model (a risk assessment model) the patient's lifetime risk is 3.8% and her 10 year risk is 2.1%. According to the ACR, ACS, and NCCN guidelines, an annual breast MRI exam along with mammogram is recommended if the patient's lifetime risk is 20% or greater. This exam was interpreted at Station ID: [id number]. NOTE: For mammograms, a report in lay terms will be sent to the patient. Approximately 15% of breast malignancies will not be visualized mammographically. In the management of a palpable breast mass, a negative mammogram must not discourage biopsy of a clinically suspicious lesion. Electronically Signed By: Clemente michel/sarahi:02/04/2023 12:19:01 letter sent: Normal Exam ACR BI-RADS Category 1: Negative 3341F
== END ==
PROVIDERS: PCP Internal Medicine; Referring Provider Internal Medicine; Visit Provider Internal Medicine
DX: Z12.31 Encounter for screening mammogram for malignant neoplasm of breast (principal); Z80.3 Family history of malignant neoplasm of breast
CPT/HCPCS: 77063; 77067

== ENCOUNTER 2023-06-01 10:30 | Outpatient (RCR) | payer MEDICARE, OTHER, SELFPAY ==
[2021-09-11 16:46] VITALS: BMI 26.3
--- NOTE | 2023-03-24 11:21 | PT.OIE ---
Current Diagnoses Other shoulder lesions, right shoulder (03/24/23) Past Medical History (Last Updated 03/12/23 @ 10:27 by Aydin Price MD) Actinic keratosis Anxiety (~2017) Atrophic vulvovaginitis Back problem Carpal tunnel syndrome (~1999) Chicken pox Chronic anticoagulation Chronic back pain (~1979) Colon polyps (~2019) Disease of spine Diverticular disease (~2019) Fractures (~2019) GERD (gastroesophageal reflux disease) (~2020) Hematuria (~2015) Hemorrhoid (~1972) History of colonic polyps Hypothyroidism (~1979) Irritable bowel syndrome with both constipation and diarrhea Measles Mixed hyperlipidemia Obstructive sleep apnea Osteopenia (~2016) Ovarian cyst Palpitations Paroxysmal atrial fibrillation Rosacea (~1979) Shoulder pain (~2015) Sleep apnea (~2012) Tinnitus (~1999) Past Surgical History (Last Reviewed 03/12/23 @ 06:09 by Aydin Price MD) Anesthesia Colon polyps (~2019) History of carpal tunnel repair (~2008) History of tonsillectomy (~1958) Ovarian cyst (~1976) S/P ablation of atrial fibrillation (~2012) Status post discectomy (~2012) Status post hysterectomy (~1979) [place] teeth extracted Visit Care Team Role Provider Type Aydin Price MD Attending Provider Physician Family Provider Primary Care Provider Referring Provider Specialty: Internal Medicine Address: [address] [place] [address], [facility] Email: [email or web address] Therapy Initial Evaluation PT-OP-A Visit Information Start: 03/23/23 16:58 Freq: Status: Active Protocol: Document 03/24/23 11:21 AM (Rec: 03/24/23 12:53 AM [id number]) Out-Patient Physical Therapy Visit Information Visit Information Visit Type Initial Evaluation Visit Start Time 11:29 Visit Stop Time 12:12 Total Visit Minutes 43 Visit Number 1 Number of CUSTOMER ACCOUNTS ADVISOR Visits 0 Evaluation Information Evaluation Date 03/24/23 Precautions Precautions Allergic to tape adhesives. Pt does not think that she is allergic to latex; Pt is on blood thinner PT-OP-B Current Condition Start: 03/23/23 16:58 Freq: Status: Active Protocol: Document 03/24/23 11:21 AM (Rec: 03/24/23 12:53 AM [id number]) Current Condition History of Current Condition Onset Date Pt reports chronic shoulder with recent exacerbation. Current Complaints R upper arm pain History of Current Condition Pt reports that she has R UE symptoms that range from her shoulder to her hand. Pt reports that pain is mostly at upper arm now. Pt reports that she sleeps on that shoulder. Pt reports previous L adhesive capsulitis. Pt reports hx of neck issues. Pt feels symptoms are from overuse Prior Functional Status Baseline Function- ADL's Independent Baseline Function- Mobility Independent Current Functional Impairments (Reported) Functional Limitations- ADL's Pt able to do ADL's though has pain at times. Pt reports pain with driving Functional Limitations- Work/School Pt reports difficulty with using a broom. PT-OP-C Subjective Start: 03/23/23 16:58 Freq: Status: Active Protocol: Document 03/24/23 11:21 AM (Rec: 03/24/23 12:53 AM [id number]) Patient Questionnaires Quick Dash- Upper Extremity Quick Dash UE Score 22 Quick Dash UE Impairment 20 to 39% Impaired (Score 20- 39) OP-PT Pain Assessment Pain Assessment Grid Paper Pain Assessment Grid Completed Yes Location Right Anterior Shoulder Pain Location Details pain at anterior, posterior and inferior shoulder, biceps pain Intensity 3 Scale Used Numeric (0 - 10) Description Aching,Sharp Description- Other Pt reports pain at 5/10 at the worst. Frequency Daily Radiating Location Pt has had symptoms to her hand at times, though to biceps currently Pain Aggravating Factors Position,Activity,Lifting Pain Alleviating Factors Heat,Medication,Rest Home Pain Medication Use Pain Medications Used No: OTC pain reliever Home Pain Medication Frequency PRN PT-OP-J Posture/Palpation/Skin Start: 03/23/23 16:58 Freq: Status: Active Protocol: Document 03/24/23 11:21 AM (Rec: 03/24/23 12:53 AM [id number]) Posture Evaluation Position Sitting Head/C-Spine Posture Forward Head Shoulder Posture (L) Rounded,(R) Rounded,(L) Forward,(R) Forward Scapula Posture (L) Protracted,(R) Protracted Palpation Assessment Location Shoulder Palpation Location infraspinatus, UT, pecs Palpation Findings Soft Tissue Tightness, Tenderness PT-OP-K Range of Motion Start: 03/23/23 16:58 Freq: Status: Active Protocol: Document 08/29/23 11:21 AM (Rec: 03/24/23 12:53 AM [id number]) Shoulder Goniometric Range of Motion Shoulder Left Active Shoulder ROM WFL Yes Testing Position Sitting Flexion 160 Abduction 165 External Rotation at 45 degrees 50 Abduction Internal Rotation Behind Back (text) T10 apley Comments Apley ER: T7 Right Active Shoulder ROM WFL Yes Flexion 160 Abduction 160 External Rotation at 45 degrees 42 Abduction Internal Rotation Behind Back (text) T12 Comments Painful with motion, ER Apley T5 PT-OP-L Special Tests Start: 03/23/23 16:58 Freq: Status: Active Protocol: Document 03/24/23 11:21 AM (Rec: 03/24/23 12:53 AM [id number]) Special Tests Shoulder Special Tests Hill Oscar Impingement Test Results positive Speed's Biceps Test Results positive Empty Can Test Results negative Drop Arm Rotator Cuff Test Results negative Neural Special Tests- Upper Body Radial Nerve Tension Test Results negative Upper Limb Tension Test Test Results negative Median Nerve Tension Test Results negative PT-OP-M Strength Start: 03/23/23 16:58 Freq: Status: Active Protocol: Document 03/24/23 11:21 AM (Rec: 03/24/23 12:53 AM [id number]) Shoulder Strength Shoulder Manual Muscle Testing Left Flexion 4+ Good+ Abduction (C5) 5 Normal External Rotation 5 Normal Internal Rotation 5 Normal Right Flexion 4- Good- Abduction (C5) 4- Good- External Rotation 4- Good- Internal Rotation 4- Good- PT-OP-Q Treatments Start: 03/23/23 16:58 Freq: Status: Active Protocol: Document 03/24/23 11:21 AM (Rec: 03/24/23 12:55 AM [id number]) Therapeutic Exercises Standing Exercises Row Standing Exercise Name Standing row Side bilateral Resistance OTB Equipment Used OTB Reps/Minutes x10 IE/ER isometrics Side right Equipment Used At door frame Reps/Minutes 5x5 sec ea Corner pec stretch Side bilateral Reps/Minutes 30 sec PT-OP-T Assessment and Plan Start: 03/23/23 16:58 Freq: Status: Active Protocol: Document 03/24/23 11:21 AM (Rec: 03/24/23 12:53 AM [id number]) Physical Therapy Assessment Rehab Potential Rehabilitation Potential Excellent Evaluation Complexity Number of Personal Factors/Comorbidities 0 Number of Body Systems Impaired 1-2 Clinical Presentation at Evaluation Stable Impairments Impairments Activity Tolerance,Functional Activities,Functional Mobility ,Pain,Posture,ROM,Soft Tissue Mobility,Strength Goals Heavy cleaning Impairment Pain with functional task of cleaning. Longterm Goal (LTG) Pt will report that she is no longer having pain with cleaning tasks, including using a broom. LTG Duration 05/05/23 Driving Impairment Pain with functional task Impairment Pt with reported increase in pain with driving. Marbleizing Machine Tender Goal (LTG) Pt will report that she is no longer having shoulder pain with driving. LTG Duration 05/05/23 Strength Impairment Strength impairment Impairment Pt's R shoulder strength at 4- /5 grossly. Short Term Goal (STG) Pt with R shoulder strength at 4/5 grossly. STG Duration 04/14/23 Longterm Goal (LTG) Pt with R shoulder strength at 4+/5-5/5 grossly. LTG Duration 05/05/23 Two Impairment QuickDash Impairment Pt's Quickdash score indicates 25% impairment. Longterm Goal (LTG) Pt with Quickdash score of <10 % impairment LTG Duration 05/05/23 Pain Impairment Pain Impairment Pt reports pain at 5/10 at the worst. Short Term Goal (STG) Pt to report pain at 2/10 at the worst. STG Duration 04/14/23 Marbleizing Machine Tender Goal (LTG) Pt to report pain at 1/10 at the worst. LTG Duration 05/05/23 Assessment Summary Assessment Trish Wei presents to PT to address chronic pain at R shoulder with recent exacerbation of symptoms. Pt's R shoulder AROM is WFL, though pt reports pain at end ranges. Pt demonstrates stiffness at bilateral pec minor, with R stiffer than L. Pt demonstrates fair shoulder strength. Pt unable to tolerate resisted shoulder ER, though able to tolerate isometrics with cues to not push into pain. Pt demonstrated tenderness along infraspinatus, UT and pecs with palpation. Pt with nerve- like peripheral radiation of symptoms at R UE, though UE neural testing was negative today. Pt would benefit from continued PT to progress shoulder strength and scapulohumeral dynamics to improve tolerance to functional and recreational tasks. Physical Therapy Plan Frequency and Duration Frequency of Treatment 2x/Week Duration of treatment (weeks) 6 Plan of Care Start Date 03/24/23 Plan of Care End Date 05/05/23 Therapeutic Interventions Therapeutic Interventions Home Exercise Program,Joint Mobilizations,Manual Therapy, Neuromuscular Re-education, Patient/Caregiver Education, Self-Care/Home Management,Soft Tissue Mobilization, Therapeutic Activities, Therapeutic Exercises Modalities Cold Pack/Ice Massage,Electric Stimulation,Hot Packs, Ultrasound Next Visit Focus/Plan Next Note Type Treatment Note Next Visit Plan Assess and educate driving posture, initiate manual STM, mobs and ROM at shoulder to decrease pain, progress shoulder strengthening as tolerated
--- NOTE | 2023-03-24 11:21 | PT.OPPOC ---
Physical, Occupational & Speech Therapy At [facility] Current Diagnoses Other shoulder lesions, right shoulder (03/24/23) Visit Care Team Role Provider Type Aydin Price MD Attending Provider Physician Family Provider Primary Care Provider Referring Provider Specialty: Internal Medicine Address: [address] [place] [address], [id number] Email: [email or web address] Plan Of Care PT-OP-T Assessment and Plan Start: 03/23/23 16:58 Freq: Status: Active Protocol: Document 03/24/23 11:21 AM (Rec: 03/24/23 12:53 AM [id number]) Physical Therapy Assessment Rehab Potential Rehabilitation Potential Excellent Evaluation Complexity Number of Personal Factors/Comorbidities 0 Number of Body Systems Impaired 1-2 Clinical Presentation at Evaluation Stable Impairments Impairments Activity Tolerance,Functional Activities,Functional Mobility ,Pain,Posture,ROM,Soft Tissue Mobility,Strength Goals Heavy cleaning Impairment Pain with functional task of cleaning. Residential Goal (LTG) Pt will report that she is no longer having pain with cleaning tasks, including using a broom. LTG Duration 05/05/23 Driving Impairment Pain with functional task Impairment Pt with reported increase in pain with driving. Radiator Cleaner Goal (LTG) Pt will report that she is no longer having shoulder pain with driving. LTG Duration 05/05/23 Strength Impairment Strength impairment Impairment Pt's R shoulder strength at 4- /5 grossly. Short Term Goal (STG) Pt with R shoulder strength at 4/5 grossly. STG Duration 04/14/23 Residential Goal (LTG) Pt with R shoulder strength at 4+/5-5/5 grossly. LTG Duration 05/05/23 Two Impairment QuickDash Impairment Pt's Quickdash score indicates 25% impairment. Residential Goal (LTG) Pt with Quickdash score of <10 % impairment LTG Duration 05/05/23 Pain Impairment Pain Impairment Pt reports pain at 5/10 at the worst. Short Term Goal (STG) Pt to report pain at 2/10 at the worst. STG Duration 04/14/23 Radiator Cleaner Goal (LTG) Pt to report pain at 1/10 at the worst. LTG Duration 05/05/23 Assessment Summary Assessment Trish Wei presents to PT to address chronic pain at R shoulder with recent exacerbation of symptoms. Pt's R shoulder AROM is WFL, though pt reports pain at end ranges. Pt demonstrates stiffness at bilateral pec minor, with R stiffer than L. Pt demonstrates fair shoulder strength. Pt unable to tolerate resisted shoulder ER, though able to tolerate isometrics with cues to not push into pain. Pt demonstrated tenderness along infraspinatus, UT and pecs with palpation. Pt with nerve- like peripheral radiation of symptoms at R UE, though UE neural testing was negative today. Pt would benefit from continued PT to progress shoulder strength and scapulohumeral dynamics to improve tolerance to functional and recreational tasks. Physical Therapy Plan Frequency and Duration Frequency of Treatment 2x/Week Duration of treatment (weeks) 6 Plan of Care Start Date 03/24/23 Plan of Care End Date 05/05/23 Therapeutic Interventions Therapeutic Interventions Home Exercise Program,Joint Mobilizations,Manual Therapy, Neuromuscular Re-education, Patient/Caregiver Education, Self-Care/Home Management,Soft Tissue Mobilization, Therapeutic Activities, Therapeutic Exercises Modalities Cold Pack/Ice Massage,Electric Stimulation,Hot Packs, Ultrasound Next Visit Focus/Plan Next Note Type Treatment Note Next Visit Plan Assess and educate driving posture, initiate manual STM, mobs and ROM at shoulder to decrease pain, progress shoulder strengthening as tolerated Plan of Care Dates Plan of Care Start Date 03/24/23 Plan of Care End Date 05/05/23 Electronically Signed by: Carli Hernandez, PT 03/24/23 1257 If you are in agreement with this Plan of Care, please return a signed and dated copy. I have reviewed this Plan of Care and certify that the skilled therapy services above are required to meet the patient?s needs. Physician Signature Date Printed Name and Credentials Clinical Instructor Signature Printed Name and Credentials
--- NOTE | 2023-03-27 13:32 | PT.OTN ---
Current Diagnoses Other shoulder lesions, right shoulder (03/27/23) Physical Therapy Treatment Note PT-OP-A Visit Information Start: 03/23/23 16:58 Freq: Status: Active Protocol: Document 03/27/23 13:32 AM (Rec: 03/27/23 15:45 AM [id number]) Out-Patient Physical Therapy Visit Information Visit Information Visit Type Treatment Note Visit Start Time 13:33 Visit Stop Time 14:19 Total Visit Minutes 46 Visit Number 2 Precautions Precautions Allergic to tape adhesives. Pt does not think that she is allergic to latex; Pt is on blood thinner PT-OP-B Current Condition Start: 03/23/23 16:58 Freq: Status: Active Protocol: Document 03/27/23 13:32 AM (Rec: 03/27/23 15:45 AM [id number]) Current Condition History of Current Condition Onset Date Pt reports chronic shoulder with recent exacerbation. Current Complaints R upper arm pain History of Current Condition Pt reports that she has R UE symptoms that range from her shoulder to her hand. Pt reports that pain is mostly at upper arm now. Pt reports that she sleeps on that shoulder. Pt reports previous L adhesive capsulitis. Pt reports hx of neck issues. Pt feels symptoms are from overuse PT-OP-C Subjective Start: 03/23/23 16:58 Freq: Status: Active Protocol: Document 03/27/23 13:32 AM (Rec: 03/27/23 15:45 AM [id number]) OP-PT Subjective Patient Comments Patient Comments Pt reports that she feels that she might have overdone it on her exercises. Pt reports pain at 0/10 today, but flared up overnight and was difficult to sleep. PT-OP-J Posture/Palpation/Skin Start: 03/23/23 16:58 Freq: Status: Active Protocol: Document 03/24/23 11:21 AM (Rec: 03/24/23 12:53 AM [id number]) Posture Evaluation Position Sitting Head/C-Spine Posture Forward Head Shoulder Posture (L) Rounded,(R) Rounded,(L) Forward,(R) Forward Scapula Posture (L) Protracted,(R) Protracted Palpation Assessment Location Shoulder Palpation Location infraspinatus, UT, pecs Palpation Findings Soft Tissue Tightness, Tenderness PT-OP-K Range of Motion Start: 03/23/23 16:58 Freq: Status: Active Protocol: Document 03/24/23 11:21 AM (Rec: 03/24/23 12:53 AM [id number]) Shoulder Goniometric Range of Motion Shoulder Left Active Shoulder ROM WFL Yes Testing Position Sitting Flexion 160 Abduction 165 External Rotation at 45 degrees 50 Abduction Internal Rotation Behind Back (text) T10 apley Comments Apley ER: T7 Right Active Shoulder ROM WFL Yes Flexion 160 Abduction 160 External Rotation at 45 degrees 42 Abduction Internal Rotation Behind Back (text) T12 Comments Painful with motion, ER Apley T5 PT-OP-L Special Tests Start: 03/23/23 16:58 Freq: Status: Active Protocol: Document 03/24/23 11:21 AM (Rec: 03/24/23 12:53 AM [id number]) Special Tests Shoulder Special Tests Hill Oscar Impingement Test Results positive Speed's Biceps Test Results positive Empty Can Test Results negative Drop Arm Rotator Cuff Test Results negative Neural Special Tests- Upper Body Radial Nerve Tension Test Results negative Upper Limb Tension Test Test Results negative Median Nerve Tension Test Results negative PT-OP-M Strength Start: 03/23/23 16:58 Freq: Status: Active Protocol: Document 03/24/23 11:21 AM (Rec: 03/24/23 12:53 AM [id number]) Shoulder Strength Shoulder Manual Muscle Testing Left Flexion 4+ Good+ Abduction (C5) 5 Normal External Rotation 5 Normal Internal Rotation 5 Normal Right Flexion 4- Good- Abduction (C5) 4- Good- External Rotation 4- Good- Internal Rotation 4- Good- PT-OP-Q Treatments Start: 03/23/23 16:58 Freq: Status: Active Protocol: Document 03/27/23 13:32 AM (Rec: 03/27/23 15:45 AM [id number]) Cardio Equipment Upper Body Ergometer (UBE) Duration (Minutes) 5 Seat Position table version of UBE Other standard chair Therapeutic Exercises Supine Exercises Cervical retraction Supine Exercise Name Supine cervical traction Reps/Minutes 2x10, 1st round with pillow and second without Prone Exercises Row Prone Exercise Name Prone row Side right Reps/Minutes 10 Shoulder extension Prone Exercise Name Shoulder extension Side right Resistance 0 Reps/Minutes 10 Comments This exercises was given in updated HEP in bent over position vs prone Sidelying Exercises Shoulder flexion Sidelying Exercise Name Shoulder flexion to 90 degrees Reps/Minutes 10 Shoulder abduction Sidelying Exercise Name Abduction to 90 degrees Side right Reps/Minutes 10 Manual Therapy Treatment Soft Tissue Mobilization R UT/pecs Body Location Supine Mobilization Type Myofascial Release,Trigger Point Release Intensity/Depth Moderate Body Position Supine Shoulder Body Location L sidelying Mobilization Type Myofascial Release,Trigger Point Release Intensity/Depth Moderate Comments Tenderness at infraspinatus Manual Traction Cervical Details Cervical traction Body Position Hooklying Reps/Duration 2x1 min Manual Techniques Pec minor stretch Type Pec minor stretch Body Location pecs Body Position Supine Reps/Duration x40 sec Comments Manual stretch PT-OP-T Assessment and Plan Start: 03/23/23 16:58 Freq: Status: Active Protocol: Document 03/27/23 13:32 AM (Rec: 03/27/23 15:45 AM [id number]) Physical Therapy Assessment Impairments Impairments Activity Tolerance,Functional Activities,Functional Mobility ,Pain,Posture,ROM,Soft Tissue Mobility,Strength Goals Heavy cleaning Impairment Pain with functional task of cleaning. Calender Inspector Goal (LTG) Pt will report that she is no longer having pain with cleaning tasks, including using a broom. LTG Duration 05/05/23 Driving Impairment Pain with functional task Impairment Pt with reported increase in pain with driving. Calender Inspector Goal (LTG) Pt will report that she is no longer having shoulder pain with driving. LTG Duration 05/05/23 Strength Impairment Strength impairment Impairment Pt's R shoulder strength at 4- /5 grossly. Short Term Goal (STG) Pt with R shoulder strength at 4/5 grossly. STG Duration 04/14/23 Calender Inspector Goal (LTG) Pt with R shoulder strength at 4+/5-5/5 grossly. LTG Duration 05/05/23 Two Impairment QuickDash Impairment Pt's Quickdash score indicates 25% impairment. Calender Inspector Goal (LTG) Pt with Quickdash score of <10 % impairment LTG Duration 05/05/23 Pain Impairment Pain Impairment Pt reports pain at 5/10 at the worst. Short Term Goal (STG) Pt to report pain at 2/10 at the worst. STG Duration 04/14/23 Fpc Goal (LTG) Pt to report pain at 1/10 at the worst. LTG Duration 05/05/23 Assessment Summary Assessment Pt demonstrated increased discomfort with shoulder ER today, therefore pt instructed to stop HEP from IE and she was given a new updated on. Pt able to tolerate shoulder AROM in sidelying without production of pain. Pt did develop R hand symptoms during tx session, which were abolished with manual cervical traction. Pt demonstrates likely cervical involvement contributing to R UE symptoms. Pt with reduction of hand symptoms with unloaded supine cervical retraction as well, which was added to HEP. Pt would benefit from continued PT to decrease R UE pain and improve tolerance to functional activities. Physical Therapy Plan Frequency and Duration Frequency of Treatment 2x/Week Duration of treatment (weeks) 6 Plan of Care Start Date 03/24/23 Plan of Care End Date 05/05/23 Therapeutic Interventions Therapeutic Interventions Home Exercise Program,Joint Mobilizations,Manual Therapy, Neuromuscular Re-education, Patient/Caregiver Education, Self-Care/Home Management,Soft Tissue Mobilization, Therapeutic Activities, Therapeutic Exercises Modalities Cold Pack/Ice Massage,Electric Stimulation,Hot Packs, Ultrasound Next Visit Focus/Plan Next Note Type Treatment Note Next Visit Plan Assess and educate driving posture, initiate manual STM, mobs and ROM at shoulder to decrease pain, progress shoulder strengthening as tolerated
--- NOTE | 2023-04-02 12:46 | PT.OTN ---
Current Diagnoses Other shoulder lesions, right shoulder (04/02/23) Physical Therapy Treatment Note PT-OP-A Visit Information Start: 03/23/23 16:58 Freq: Status: Active Protocol: Document 04/02/23 11:45 SW (Rec: 04/02/23 12:46 [id number]) Out-Patient Physical Therapy Visit Information Visit Information Visit Type Treatment Note Visit Start Time 11:46 Visit Stop Time 12:30 Total Visit Minutes 44 Visit Number 3 Number of DRAGLINE ENGINEER Visits 1 PT-OP-B Current Condition Start: 03/23/23 16:58 Freq: Status: Active Protocol: Document 03/27/23 13:32 AM (Rec: 03/27/23 15:45 AM [id number]) Current Condition History of Current Condition Onset Date Pt reports chronic shoulder with recent exacerbation. Current Complaints R upper arm pain History of Current Condition Pt reports that she has R UE symptoms that range from her shoulder to her hand. Pt reports that pain is mostly at upper arm now. Pt reports that she sleeps on that shoulder. Pt reports previous L adhesive capsulitis. Pt reports hx of neck issues. Pt feels symptoms are from overuse PT-OP-C Subjective Start: 03/23/23 16:58 Freq: Status: Active Protocol: Document 04/02/23 11:45 SW (Rec: 04/02/23 12:46 [id number]) OP-PT Subjective Patient Comments Patient Comments Pt reports yesterday was terrible, drove a lot. Admitted she has been doing more exercises outside of her prescribed PT exercises. PT-OP-J Posture/Palpation/Skin Start: 03/23/23 16:58 Freq: Status: Active Protocol: Document 03/24/23 11:21 AM (Rec: 03/24/23 12:53 AM [id number]) Posture Evaluation Position Sitting Head/C-Spine Posture Forward Head Shoulder Posture (L) Rounded,(R) Rounded,(L) Forward,(R) Forward Scapula Posture (L) Protracted,(R) Protracted Palpation Assessment Location Shoulder Palpation Location infraspinatus, UT, pecs Palpation Findings Soft Tissue Tightness, Tenderness PT-OP-K Range of Motion Start: 03/23/23 16:58 Freq: Status: Active Protocol: Document 03/24/23 11:21 AM (Rec: 03/24/23 12:53 AM [id number]) Shoulder Goniometric Range of Motion Shoulder Left Active Shoulder ROM WFL Yes Testing Position Sitting Flexion 160 Abduction 165 External Rotation at 45 degrees 50 Abduction Internal Rotation Behind Back (text) T10 apley Comments Apley ER: T7 Right Active Shoulder ROM WFL Yes Flexion 160 Abduction 160 External Rotation at 45 degrees 42 Abduction Internal Rotation Behind Back (text) T12 Comments Painful with motion, ER Apley T5 PT-OP-L Special Tests Start: 03/23/23 16:58 Freq: Status: Active Protocol: Document 03/24/23 11:21 AM (Rec: 03/24/23 12:53 AM [id number]) Special Tests Shoulder Special Tests Hill Oscar Impingement Test Results positive Speed's Biceps Test Results positive Empty Can Test Results negative Drop Arm Rotator Cuff Test Results negative Neural Special Tests- Upper Body Radial Nerve Tension Test Results negative Upper Limb Tension Test Test Results negative Median Nerve Tension Test Results negative PT-OP-M Strength Start: 03/23/23 16:58 Freq: Status: Active Protocol: Document 03/24/23 11:21 AM (Rec: 03/24/23 12:53 AM [id number]) Shoulder Strength Shoulder Manual Muscle Testing Left Flexion 4+ Good+ Abduction (C5) 5 Normal External Rotation 5 Normal Internal Rotation 5 Normal Right Flexion 4- Good- Abduction (C5) 4- Good- External Rotation 4- Good- Internal Rotation 4- Good- PT-OP-Q Treatments Start: 03/23/23 16:58 Freq: Status: Active Protocol: Document 04/02/23 11:45 SW (Rec: 04/02/23 12:46 SW [id number]) Therapeutic Exercises Supine Exercises Cervical retraction Supine Exercise Name Supine cervical traction Reps/Minutes 2x10, 1st round with pillow and second without Prone Exercises Shoulder extension Prone Exercise Name Shoulder extension Side right Resistance 0 Reps/Minutes 10 Comments This exercises was given in updated HEP in bent over position vs prone Sidelying Exercises Shoulder flexion Sidelying Exercise Name Shoulder flexion to 90 degrees Reps/Minutes 10 Shoulder abduction Sidelying Exercise Name Abduction to 90 degrees Side right Reps/Minutes 10 Sitting Exercises Cervical Isometrics Sitting Exercise Name All ways Equipment Used Therapist assist/ Educated on self Reps/Minutes x 30 ea Standing Exercises IR/ER Side right Resistance Hyde TB Equipment Used Hyde TB Reps/Minutes x10 Comments *ER too painful, Isometric hold Row Standing Exercise Name Standing row Side bilateral Resistance OTB Equipment Used OTB Reps/Minutes x10 IE/ER isometrics Side right Resistance Hyde TB Equipment Used Hyde TB Reps/Minutes 5x5 sec ea Manual Therapy Treatment Soft Tissue Mobilization R UT/pecs Body Location Supine Mobilization Type Myofascial Release,Trigger Point Release Intensity/Depth Moderate Body Position Supine Shoulder Body Location L sidelying Mobilization Type Myofascial Release,Trigger Point Release Intensity/Depth Moderate Comments Tenderness at infraspinatus Self-Care/Home Management Treatment Education Patient Education Home Exercise Program,Joint Protection,Pain Management, Posture Caregiver Education Educated patient on driving posture. Discussed sleeping position. Discussed HEP. PT-OP-T Assessment and Plan Start: 03/23/23 16:58 Freq: Status: Active Protocol: Document 04/02/23 11:45 SW (Rec: 04/02/23 12:46 SW [id number]) Physical Therapy Assessment Goals Heavy cleaning Impairment Pain with functional task of cleaning. Detention Goal (LTG) Pt will report that she is no longer having pain with cleaning tasks, including using a broom. LTG Duration 05/05/23 Driving Impairment Pain with functional task Impairment Pt with reported increase in pain with driving. Detention Goal (LTG) Pt will report that she is no longer having shoulder pain with driving. LTG Duration 05/05/23 Strength Impairment Strength impairment Impairment Pt's R shoulder strength at 4- /5 grossly. Short Term Goal (STG) Pt with R shoulder strength at 4/5 grossly. STG Duration 04/14/23 Detention Goal (LTG) Pt with R shoulder strength at 4+/5-5/5 grossly. LTG Duration 05/05/23 Two Impairment QuickDash Impairment Pt's Quickdash score indicates 25% impairment. Quilter Fixer Goal (LTG) Pt with Quickdash score of <10 % impairment LTG Duration 05/05/23 Pain Impairment Pain Impairment Pt reports pain at 5/10 at the worst. Short Term Goal (STG) Pt to report pain at 2/10 at the worst. STG Duration 04/14/23 Quilter Fixer Goal (LTG) Pt to report pain at 1/10 at the worst. LTG Duration 05/05/23 Assessment Summary Assessment Progressed shoulder strengthening today, reproduction of symptoms with ER strength, decreased to isometric hold with peach TB, patient tolerated well. Educated patient on avoiding pushing into increased pain, and to followup with HEP at next apt prn. Assessed and educated patient on driving posture. Physical Therapy Plan Frequency and Duration Frequency of Treatment 2x/Week Duration of treatment (weeks) 6 Plan of Care Start Date 03/24/23 Plan of Care End Date 05/05/23 Therapeutic Interventions Therapeutic Interventions Home Exercise Program,Joint Mobilizations,Manual Therapy, Neuromuscular Re-education, Patient/Caregiver Education, Self-Care/Home Management,Soft Tissue Mobilization, Therapeutic Activities, Therapeutic Exercises Modalities Cold Pack/Ice Massage,Electric Stimulation,Hot Packs, Ultrasound Next Visit Focus/Plan Next Note Type Treatment Note Next Visit Plan Assess and educate driving posture, initiate manual STM, mobs and ROM at shoulder to decrease pain, progress shoulder strengthening as tolerated
--- NOTE | 2023-04-07 14:16 | PT.OTN ---
Current Diagnoses Other shoulder lesions, right shoulder (04/07/23) Physical Therapy Treatment Note PT-OP-A Visit Information Start: 03/23/23 16:58 Freq: Status: Active Protocol: Document 04/07/23 14:16 AM (Rec: 04/07/23 14:51 AM [id number]) Out-Patient Physical Therapy Visit Information Visit Information Visit Type Cancellation Visit Note Pt is cancelling on future visits until she gets back from her upcoming trip. Precautions Precautions Allergic to tape adhesives. Pt does not think that she is allergic to latex; Pt is on blood thinner PT-OP-B Current Condition Start: 03/23/23 16:58 Freq: Status: Active Protocol: Document 04/07/23 14:16 AM (Rec: 04/07/23 14:51 AM [id number]) Current Condition History of Current Condition Onset Date Pt reports chronic shoulder with recent exacerbation. Current Complaints R upper arm pain History of Current Condition Pt reports that she has R UE symptoms that range from her shoulder to her hand. Pt reports that pain is mostly at upper arm now. Pt reports that she sleeps on that shoulder. Pt reports previous L adhesive capsulitis. Pt reports hx of neck issues. Pt feels symptoms are from overuse PT-OP-C Subjective Start: 03/23/23 16:58 Freq: Status: Active Protocol: Document 04/07/23 14:16 AM (Rec: 04/07/23 14:51 AM [id number]) OP-PT Subjective Patient Comments Patient Comments Pt reports that she had 10/10 pain the day following previous visit. Pt reports that she did not notice much discomfort during the session. Pt reports that she thought about going to urgent care. Pt is going to see her referring provider tomorrow, but is going to cancel appts until after she goes on her trip. She is scheduled for PT when she returns. PT-OP-J Posture/Palpation/Skin Start: 03/23/23 16:58 Freq: Status: Active Protocol: Document 03/24/23 11:21 AM (Rec: 03/24/23 12:53 AM [id number]) Posture Evaluation Position Sitting Head/C-Spine Posture Forward Head Shoulder Posture (L) Rounded,(R) Rounded,(L) Forward,(R) Forward Scapula Posture (L) Protracted,(R) Protracted Palpation Assessment Location Shoulder Palpation Location infraspinatus, UT, pecs Palpation Findings Soft Tissue Tightness, Tenderness PT-OP-K Range of Motion Start: 03/23/23 16:58 Freq: Status: Active Protocol: Document 03/24/23 11:21 AM (Rec: 03/24/23 12:53 AM [id number]) Shoulder Goniometric Range of Motion Shoulder Left Active Shoulder ROM WFL Yes Testing Position Sitting Flexion 160 Abduction 165 External Rotation at 45 degrees 50 Abduction Internal Rotation Behind Back (text) T10 apley Comments Apley ER: T7 Right Active Shoulder ROM WFL Yes Flexion 160 Abduction 160 External Rotation at 45 degrees 42 Abduction Internal Rotation Behind Back (text) T12 Comments Painful with motion, ER Apley T5 PT-OP-L Special Tests Start: 03/23/23 16:58 Freq: Status: Active Protocol: Document 03/24/23 11:21 AM (Rec: 03/24/23 12:53 AM [id number]) Special Tests Shoulder Special Tests Hill Oscar Impingement Test Results positive Speed's Biceps Test Results positive Empty Can Test Results negative Drop Arm Rotator Cuff Test Results negative Neural Special Tests- Upper Body Radial Nerve Tension Test Results negative Upper Limb Tension Test Test Results negative Median Nerve Tension Test Results negative PT-OP-M Strength Start: 03/23/23 16:58 Freq: Status: Active Protocol: Document 03/24/23 11:21 AM (Rec: 03/24/23 12:53 AM [id number]) Shoulder Strength Shoulder Manual Muscle Testing Left Flexion 4+ Good+ Abduction (C5) 5 Normal External Rotation 5 Normal Internal Rotation 5 Normal Right Flexion 4- Good- Abduction (C5) 4- Good- External Rotation 4- Good- Internal Rotation 4- Good- PT-OP-Q Treatments Start: 03/23/23 16:58 Freq: Status: Active Protocol: Document 04/02/23 11:45 SW (Rec: 04/02/23 12:46 SW [id number]) Cardio Equipment Upper Body Ergometer (UBE) Duration (Minutes) 5 Other alternate fwd/bck Therapeutic Exercises Supine Exercises Cervical retraction Supine Exercise Name Supine cervical traction Reps/Minutes 2x10, 1st round with pillow and second without Prone Exercises Shoulder extension Prone Exercise Name Shoulder extension Side right Resistance 0 Reps/Minutes 10 Comments This exercises was given in updated HEP in bent over position vs prone Sidelying Exercises Shoulder flexion Sidelying Exercise Name Shoulder flexion to 90 degrees Reps/Minutes 10 Shoulder abduction Sidelying Exercise Name Abduction to 90 degrees Side right Reps/Minutes 10 Sitting Exercises Cervical Isometrics Sitting Exercise Name All ways Equipment Used Therapist assist/ Educated on self Reps/Minutes x 30 ea Standing Exercises IR/ER Side right Resistance Nelson TB Equipment Used Nelson TB Reps/Minutes x10 Comments *ER too painful, Isometric hold Row Standing Exercise Name Standing row Side bilateral Resistance OTB Equipment Used OTB Reps/Minutes x10 IE/ER isometrics Side right Resistance Nelson TB Equipment Used Nelson TB Reps/Minutes 5x5 sec ea Manual Therapy Treatment Soft Tissue Mobilization R UT/pecs Body Location Supine Mobilization Type Myofascial Release,Trigger Point Release Intensity/Depth Moderate Body Position Supine Shoulder Body Location L sidelying Mobilization Type Myofascial Release,Trigger Point Release Intensity/Depth Moderate Comments Tenderness at infraspinatus Self-Care/Home Management Treatment Education Patient Education Home Exercise Program,Joint Protection,Pain Management, Posture Caregiver Education Educated patient on driving posture. Discussed sleeping position. Discussed HEP. PT-OP-T Assessment and Plan Start: 03/23/23 16:58 Freq: Status: Active Protocol: Document 04/07/23 14:16 AM (Rec: 04/07/23 14:51 AM [id number]) Physical Therapy Assessment Goals Heavy cleaning Impairment Pain with functional task of cleaning. Corporate Responsibility Officer Goal (LTG) Pt will report that she is no longer having pain with cleaning tasks, including using a broom. LTG Duration 05/05/23 Driving Impairment Pain with functional task Impairment Pt with reported increase in pain with driving. Custodial Goal (LTG) Pt will report that she is no longer having shoulder pain with driving. LTG Duration 05/05/23 Strength Impairment Strength impairment Impairment Pt's R shoulder strength at 4- /5 grossly. Short Term Goal (STG) Pt with R shoulder strength at 4/5 grossly. STG Duration 04/14/23 Corporate Responsibility Officer Goal (LTG) Pt with R shoulder strength at 4+/5-5/5 grossly. LTG Duration 05/05/23 Two Impairment QuickDash Impairment Pt's Quickdash score indicates 25% impairment. Corporate Responsibility Officer Goal (LTG) Pt with Quickdash score of <10 % impairment LTG Duration 05/05/23 Pain Impairment Pain Impairment Pt reports pain at 5/10 at the worst. Short Term Goal (STG) Pt to report pain at 2/10 at the worst. STG Duration 04/14/23 Custodial Goal (LTG) Pt to report pain at 1/10 at the worst. LTG Duration 05/05/23 Physical Therapy Plan Frequency and Duration Frequency of Treatment 2x/Week Duration of treatment (weeks) 6 Plan of Care Start Date 03/24/23 Plan of Care End Date 05/05/23 Therapeutic Interventions Therapeutic Interventions Home Exercise Program,Joint Mobilizations,Manual Therapy, Neuromuscular Re-education, Patient/Caregiver Education, Self-Care/Home Management,Soft Tissue Mobilization, Therapeutic Activities, Therapeutic Exercises Modalities Cold Pack/Ice Massage,Electric Stimulation,Hot Packs, Ultrasound Hold Physical Therapy Reason For Hold Pt on hold until pt visits with her referring provider and returns from her upcoming trip. Next Visit Focus/Plan Next Note Type Progress Note Next Visit Plan Re-assess ROM, strength and function upon return to PT.
--- NOTE | 2023-05-04 09:47 | PT.OTN ---
Current Diagnoses Other shoulder lesions, right shoulder (05/04/23) Physical Therapy Treatment Note PT-OP-A Visit Information Start: 03/23/23 16:58 Freq: Status: Active Protocol: Document 05/04/23 09:47 AM (Rec: 05/04/23 14:26 AM [id number]) Out-Patient Physical Therapy Visit Information Visit Information Visit Type Treatment Note Visit Start Time 09:47 Visit Stop Time 10:32 Total Visit Minutes 45 Visit Number 4 Number of FORGING ENGINEER Visits 1 Precautions Precautions Allergic to tape adhesives. Pt does not think that she is allergic to latex; Pt is on blood thinner PT-OP-B Current Condition Start: 03/23/23 16:58 Freq: Status: Active Protocol: Document 05/04/23 09:47 AM (Rec: 05/04/23 14:26 AM [id number]) Current Condition History of Current Condition Onset Date Pt reports chronic shoulder with recent exacerbation. Current Complaints R upper arm pain History of Current Condition Pt reports that she has R UE symptoms that range from her shoulder to her hand. Pt reports that pain is mostly at upper arm now. Pt reports that she sleeps on that shoulder. Pt reports previous L adhesive capsulitis. Pt reports hx of neck issues. Pt feels symptoms are from overuse PT-OP-C Subjective Start: 03/23/23 16:58 Freq: Status: Active Protocol: Document 05/04/23 09:47 AM (Rec: 05/04/23 14:26 AM [id number]) OP-PT Subjective Patient Comments Patient Comments Pt reports that she had the cortisone injection which helped. She went on a trip and did not use her arm much during that time, so it felt ok. Pt is now back and noticed numbness at her hand with computer use. Pt reports that she sits in recliner and uses laptop. Pt reports that she also tends to notice an increase in shoulder discomfort with cleaning tasks . PT-OP-J Posture/Palpation/Skin Start: 03/23/23 16:58 Freq: Status: Active Protocol: Document 03/24/23 11:21 AM (Rec: 03/24/23 12:53 AM [id number]) Posture Evaluation Position Sitting Head/C-Spine Posture Forward Head Shoulder Posture (L) Rounded,(R) Rounded,(L) Forward,(R) Forward Scapula Posture (L) Protracted,(R) Protracted Palpation Assessment Location Shoulder Palpation Location infraspinatus, UT, pecs Palpation Findings Soft Tissue Tightness, Tenderness PT-OP-K Range of Motion Start: 03/23/23 16:58 Freq: Status: Active Protocol: Document 05/04/23 09:47 AM (Rec: 05/04/23 14:26 AM [id number]) Shoulder Goniometric Range of Motion Shoulder Right Active Flexion 160 Abduction 160 External Rotation at 45 degrees 60 Abduction Internal Rotation Behind Back (text) T12 Comments T5 Aply ER. PT-OP-L Special Tests Start: 03/23/23 16:58 Freq: Status: Active Protocol: Document 03/24/23 11:21 AM (Rec: 03/24/23 12:53 AM [id number]) Special Tests Shoulder Special Tests Hill Oscar Impingement Test Results positive Speed's Biceps Test Results positive Empty Can Test Results negative Drop Arm Rotator Cuff Test Results negative Neural Special Tests- Upper Body Radial Nerve Tension Test Results negative Upper Limb Tension Test Test Results negative Median Nerve Tension Test Results negative PT-OP-M Strength Start: 03/23/23 16:58 Freq: Status: Active Protocol: Document 03/24/23 11:21 AM (Rec: 03/24/23 12:53 AM [id number]) Shoulder Strength Shoulder Manual Muscle Testing Left Flexion 4+ Good+ Abduction (C5) 5 Normal External Rotation 5 Normal Internal Rotation 5 Normal Right Flexion 4- Good- Abduction (C5) 4- Good- External Rotation 4- Good- Internal Rotation 4- Good- PT-OP-Q Treatments Start: 03/23/23 16:58 Freq: Status: Active Protocol: Document 05/04/23 09:47 AM (Rec: 05/04/23 14:26 AM [id number]) Cardio Equipment Upper Body Ergometer (UBE) Duration (Minutes) 4 Other alternate fwd/bck Therapeutic Exercises Standing Exercises Shoulder extension Standing Exercise Name shoulder extension Side bilateral Resistance peach TB Reps/Minutes 2x10 Row Standing Exercise Name Standing row Side bilateral Resistance PEach TB Equipment Used PEach TB Reps/Minutes 2x10 Manual Therapy Treatment Soft Tissue Mobilization Shoulder Body Location periscapular muscles Mobilization Type Myofascial Release,Trigger Point Release Intensity/Depth Moderate Body Position Sidelying Manual Techniques Shoulder PROM Type Shoulder PROM, all directions Body Position Supine PT-OP-T Assessment and Plan Start: 03/23/23 16:58 Freq: Status: Active Protocol: Document 05/04/23 09:47 AM (Rec: 05/04/23 14:26 AM [id number]) Physical Therapy Assessment Goals Heavy cleaning Impairment Pain with functional task of cleaning. Jail Goal (LTG) Pt will report that she is no longer having pain with cleaning tasks, including using a broom. 05/04/23: Pt continues to report pain with cleaning tasks. LTG Duration 06/02/23 Driving Impairment Pain with functional task Impairment Pt with reported increase in pain with driving. Jail Goal (LTG) Pt will report that she is no longer having shoulder pain with driving. LTG Duration 05/05/23 Strength Impairment Strength impairment Impairment Pt's R shoulder strength at 4- /5 grossly. Short Term Goal (STG) Pt with R shoulder strength at 4/5 grossly. STG Duration 04/14/23 Treasury Agent Goal (LTG) Pt with R shoulder strength at 4+/5-5/5 grossly. 05/04/23: Pt continues to demonstrate shoulder strength deficits at 4-/5 grossly. LTG Duration 06/02/23 Two Impairment QuickDash Impairment Pt's Quickdash score indicates 25% impairment. Jail Goal (LTG) Pt with Quickdash score of <10 % impairment LTG Duration 06/02/23 Pain Impairment Pain Impairment Pt reports pain at 5/10 at the worst. Short Term Goal (STG) Pt to report pain at 2/10 at the worst. STG Duration 04/14/23 Treasury Agent Goal (LTG) Pt to report pain at 1/10 at the worst. 05/04/23: Pt with reducted pain , reporting 0.5/10, though has had decrease in activity secondary to recent vacation. Pt reports an increase in shoulder symptoms as she increases activity. LTG Duration 06/02/23 Assessment Summary Assessment Pt demonstrates similar ROM compared to IE. Pt with minimal production of shoulder pain today. Pt with tenderness along periscapular muscles with STM. HEP was not updated today to assess pain response post-tx before updating. Pt did educate pt on posture while on laptop. Pt instructed to use computer at a table at eye level to decrease cervical flexion. Separate mouse recommended as well. Pt would benefit from continued PT to progress shoulder strength as tolerated to decrease pain with functional tasks. Physical Therapy Plan Frequency and Duration Frequency of Treatment 2x/Week Duration of treatment (weeks) 10 Plan of Care Start Date 03/24/23 Plan of Care End Date 06/02/23 Next Visit Focus/Plan Next Note Type Treatment Note Next Visit Plan gradually progress shoulder strength/AROM and postural strength as tolerated
--- NOTE | 2023-05-04 09:47 | PT.OPPOC ---
Physical, Occupational & Speech Therapy At [facility] Current Diagnoses Other shoulder lesions, right shoulder (05/04/23) Visit Care Team Role Provider Type Aydin Price MD Attending Provider Physician Family Provider Primary Care Provider Referring Provider Specialty: Internal Medicine Address: [address] [place] [address], [id number] Email: [email or web address] Plan Of Care PT-OP-T Assessment and Plan Start: 03/23/23 16:58 Freq: Status: Active Protocol: Document 05/04/23 09:47 AM (Rec: 05/04/23 14:26 AM [id number]) Physical Therapy Assessment Goals Heavy cleaning Impairment Pain with functional task of cleaning. Detention Goal (LTG) Pt will report that she is no longer having pain with cleaning tasks, including using a broom. 05/04/23: Pt continues to report pain with cleaning tasks. LTG Duration 06/02/23 Driving Impairment Pain with functional task Impairment Pt with reported increase in pain with driving. Detention Goal (LTG) Pt will report that she is no longer having shoulder pain with driving. LTG Duration 05/05/23 Strength Impairment Strength impairment Impairment Pt's R shoulder strength at 4- /5 grossly. Short Term Goal (STG) Pt with R shoulder strength at 4/5 grossly. STG Duration 04/14/23 Detention Goal (LTG) Pt with R shoulder strength at 4+/5-5/5 grossly. 05/04/23: Pt continues to demonstrate shoulder strength deficits at 4-/5 grossly. LTG Duration 06/02/23 Two Impairment QuickDash Impairment Pt's Quickdash score indicates 25% impairment. Activity Manager Goal (LTG) Pt with Quickdash score of <10 % impairment LTG Duration 06/02/23 Pain Impairment Pain Impairment Pt reports pain at 5/10 at the worst. Short Term Goal (STG) Pt to report pain at 2/10 at the worst. STG Duration 04/14/23 Detention Goal (LTG) Pt to report pain at 1/10 at the worst. 05/04/23: Pt with reducted pain , reporting 0.5/10, though has had decrease in activity secondary to recent vacation. Pt reports an increase in shoulder symptoms as she increases activity. LTG Duration 06/02/23 Assessment Summary Assessment Pt demonstrates similar ROM compared to IE. Pt with minimal production of shoulder pain today. Pt with tenderness along periscapular muscles with STM. HEP was not updated today to assess pain response post-tx before updating. Pt did educate pt on posture while on laptop. Pt instructed to use computer at a table at eye level to decrease cervical flexion. Separate mouse recommended as well. Pt would benefit from continued PT to progress shoulder strength as tolerated to decrease pain with functional tasks. Physical Therapy Plan Frequency and Duration Frequency of Treatment 2x/Week Duration of treatment (weeks) 10 Plan of Care Start Date 03/24/23 Plan of Care End Date 06/02/23 Next Visit Focus/Plan Next Note Type Treatment Note Next Visit Plan gradually progress shoulder strength/AROM and postural strength as tolerated Plan of Care Dates Plan of Care Start Date 03/24/23 Plan of Care End Date 06/02/23 Electronically Signed by: Carli Hernandez, PT 05/04/23 0780 If you are in agreement with this Plan of Care, please return a signed and dated copy. I have reviewed this Plan of Care and certify that the skilled therapy services above are required to meet the patient?s needs. Physician Signature Date Printed Name and Credentials Clinical Instructor Signature Printed Name and Credentials
--- NOTE | 2023-05-07 10:34 | PT.OTN ---
Current Diagnoses Other shoulder lesions, right shoulder (05/07/23) Physical Therapy Treatment Note PT-OP-A Visit Information Start: 03/23/23 16:58 Freq: Status: Active Protocol: Document 05/07/23 10:34 AM (Rec: 05/07/23 11:26 AM [id number]) Out-Patient Physical Therapy Visit Information Visit Information Visit Type Treatment Note Visit Start Time 10:34 Visit Stop Time 11:18 Total Visit Minutes 44 Visit Number 5 Number of MACHINE WELT BUTTER Visits 1 PT-OP-B Current Condition Start: 03/23/23 16:58 Freq: Status: Active Protocol: Document 05/04/23 09:47 AM (Rec: 05/04/23 14:26 AM [id number]) Current Condition History of Current Condition Onset Date Pt reports chronic shoulder with recent exacerbation. Current Complaints R upper arm pain History of Current Condition Pt reports that she has R UE symptoms that range from her shoulder to her hand. Pt reports that pain is mostly at upper arm now. Pt reports that she sleeps on that shoulder. Pt reports previous L adhesive capsulitis. Pt reports hx of neck issues. Pt feels symptoms are from overuse PT-OP-C Subjective Start: 03/23/23 16:58 Freq: Status: Active Protocol: Document 05/07/23 10:34 AM (Rec: 05/07/23 11:26 AM [id number]) OP-PT Subjective Patient Comments Patient Comments Pt reports that her shoulder felt crunchy after last session (pt pointed to clavicle), though minimal increase in pain. Pt points to scapular as painful area. PT-OP-J Posture/Palpation/Skin Start: 03/23/23 16:58 Freq: Status: Active Protocol: Document 03/24/23 11:21 AM (Rec: 03/24/23 12:53 AM [id number]) Posture Evaluation Position Sitting Head/C-Spine Posture Forward Head Shoulder Posture (L) Rounded,(R) Rounded,(L) Forward,(R) Forward Scapula Posture (L) Protracted,(R) Protracted Palpation Assessment Location Shoulder Palpation Location infraspinatus, UT, pecs Palpation Findings Soft Tissue Tightness, Tenderness PT-OP-K Range of Motion Start: 03/23/23 16:58 Freq: Status: Active Protocol: Document 05/04/23 09:47 AM (Rec: 05/04/23 14:26 AM [id number]) Shoulder Goniometric Range of Motion Shoulder Right Active Flexion 160 Abduction 160 External Rotation at 45 degrees 60 Abduction Internal Rotation Behind Back (text) T12 Comments T5 Aply ER. PT-OP-L Special Tests Start: 03/23/23 16:58 Freq: Status: Active Protocol: Document 03/24/23 11:21 AM (Rec: 03/24/23 12:53 AM [id number]) Special Tests Shoulder Special Tests Hill Oscar Impingement Test Results positive Speed's Biceps Test Results positive Empty Can Test Results negative Drop Arm Rotator Cuff Test Results negative Neural Special Tests- Upper Body Radial Nerve Tension Test Results negative Upper Limb Tension Test Test Results negative Median Nerve Tension Test Results negative PT-OP-M Strength Start: 03/23/23 16:58 Freq: Status: Active Protocol: Document 03/24/23 11:21 AM (Rec: 03/24/23 12:53 AM [id number]) Shoulder Strength Shoulder Manual Muscle Testing Left Flexion 4+ Good+ Abduction (C5) 5 Normal External Rotation 5 Normal Internal Rotation 5 Normal Right Flexion 4- Good- Abduction (C5) 4- Good- External Rotation 4- Good- Internal Rotation 4- Good- PT-OP-Q Treatments Start: 03/23/23 16:58 Freq: Status: Active Protocol: Document 05/07/23 10:34 AM (Rec: 05/07/23 11:26 AM [id number]) Therapeutic Exercises Prone Exercises Row Prone Exercise Name Prone row Reps/Minutes x10 Shoulder extension Prone Exercise Name prone extension Reps/Minutes x10 Standing Exercises Wall slide Standing Exercise Name wall slide at corner of wall Reps/Minutes x10 Shoulder extension Standing Exercise Name shoulder extension Side bilateral Resistance peach TB Reps/Minutes 2x10 Row Standing Exercise Name Standing row Side bilateral Resistance PEach TB Equipment Used PEach TB Reps/Minutes 2x10 Manual Therapy Treatment Soft Tissue Mobilization Shoulder Body Location periscapular muscles Mobilization Type Myofascial Release,Trigger Point Release Intensity/Depth Moderate Body Position Sidelying Joint Mobilizations Shoulder Joint glenohumeral Direction S-I and A-P Grade II Body Position Supine Manual Techniques Shoulder PROM Type Shoulder PROM, all directions Body Position Supine PT-OP-T Assessment and Plan Start: 03/23/23 16:58 Freq: Status: Active Protocol: Document 05/07/23 10:34 AM (Rec: 10/12/23 11:26 AM [id number]) Physical Therapy Assessment Goals Heavy cleaning Impairment Pain with functional task of cleaning. Medication Specialist Goal (LTG) Pt will report that she is no longer having pain with cleaning tasks, including using a broom. 05/04/23: Pt continues to report pain with cleaning tasks. LTG Duration 06/02/23 Driving Impairment Pain with functional task Impairment Pt with reported increase in pain with driving. Medication Specialist Goal (LTG) Pt will report that she is no longer having shoulder pain with driving. LTG Duration 05/05/23 Strength Impairment Strength impairment Impairment Pt's R shoulder strength at 4- /5 grossly. Short Term Goal (STG) Pt with R shoulder strength at 4/5 grossly. STG Duration 04/14/23 [facility] Goal (LTG) Pt with R shoulder strength at 4+/5-5/5 grossly. 05/04/23: Pt continues to demonstrate shoulder strength deficits at 4-/5 grossly. LTG Duration 06/02/23 Two Impairment QuickDash Impairment Pt's Quickdash score indicates 25% impairment. [facility]cf Goal (LTG) Pt with Quickdash score of <10 % impairment LTG Duration 06/02/23 Pain Impairment Pain Impairment Pt reports pain at 5/10 at the worst. Short Term Goal (STG) Pt to report pain at 2/10 at the worst. STG Duration 04/14/23 [facility] Goal (LTG) Pt to report pain at 1/10 at the worst. 05/04/23: Pt with reducted pain , reporting 0.5/10, though has had decrease in activity secondary to recent vacation. Pt reports an increase in shoulder symptoms as she increases activity. LTG Duration 06/02/23 Assessment Summary Assessment Pt tolerated scapular training without increase in pain today. Pt with AC joint pain with attempt to do serratus punch. Pt with minimal reported tenderness at periscapular muscles today. Wall slide, standing shoulder extension and row were added to HEP today. Pt would benefit from very gradual increase in shoulder strength as tolerated. Physical Therapy Plan Frequency and Duration Frequency of Treatment 2x/Week Duration of treatment (weeks) 10 Plan of Care Start Date 03/24/23 Plan of Care End Date 06/02/23 Next Visit Focus/Plan Next Note Type Treatment Note Next Visit Plan gradually progress shoulder strength/AROM and postural strength as tolerated
--- NOTE | 2023-05-11 10:36 | PT.OTN ---
Current Diagnoses Other shoulder lesions, right shoulder (05/11/23) Physical Therapy Treatment Note PT-OP-A Visit Information Start: 03/23/23 16:58 Freq: Status: Active Protocol: Document 05/11/23 09:41 NBM (Rec: 05/11/23 10:36 [facility] [id number]) Out-Patient Physical Therapy Visit Information Visit Information Visit Type Treatment Note Visit Start Time 09:45 Visit Stop Time 10:25 Total Visit Minutes 40 Visit Number 6 Number of BUCKLE GLUER Visits 1 PT-OP-B Current Condition Start: 03/23/23 16:58 Freq: Status: Active Protocol: Document 05/04/23 09:47 AM (Rec: 05/04/23 14:26 AM [id number]) Current Condition History of Current Condition Onset Date Pt reports chronic shoulder with recent exacerbation. Current Complaints R upper arm pain History of Current Condition Pt reports that she has R UE symptoms that range from her shoulder to her hand. Pt reports that pain is mostly at upper arm now. Pt reports that she sleeps on that shoulder. Pt reports previous L adhesive capsulitis. Pt reports hx of neck issues. Pt feels symptoms are from overuse PT-OP-C Subjective Start: 03/23/23 16:58 Freq: Status: Active Protocol: Document 05/11/23 09:41 NBM (Rec: 05/11/23 10:36 [facility] [id number]) OP-PT Subjective Patient Comments Patient Comments Trish reports some discomfort in R shoulder with resisted band ex's but it's okay at the time and hurts later. PT-OP-J Posture/Palpation/Skin Start: 03/23/23 16:58 Freq: Status: Active Protocol: Document 03/24/23 11:21 AM (Rec: 03/24/23 12:53 AM [id number]) Posture Evaluation Position Sitting Head/C-Spine Posture Forward Head Shoulder Posture (L) Rounded,(R) Rounded,(L) Forward,(R) Forward Scapula Posture (L) Protracted,(R) Protracted Palpation Assessment Location Shoulder Palpation Location infraspinatus, UT, pecs Palpation Findings Soft Tissue Tightness, Tenderness PT-OP-K Range of Motion Start: 03/23/23 16:58 Freq: Status: Active Protocol: Document 05/04/23 09:47 AM (Rec: 05/04/23 14:26 AM [id number]) Shoulder Goniometric Range of Motion Shoulder Right Active Flexion 160 Abduction 160 External Rotation at 45 degrees 60 Abduction Internal Rotation Behind Back (text) T12 Comments T5 Aply ER. PT-OP-L Special Tests Start: 03/23/23 16:58 Freq: Status: Active Protocol: Document 03/24/23 11:21 AM (Rec: 03/24/23 12:53 AM [id number]) Special Tests Shoulder Special Tests Hill Oscar Impingement Test Results positive Speed's Biceps Test Results positive Empty Can Test Results negative Drop Arm Rotator Cuff Test Results negative Neural Special Tests- Upper Body Radial Nerve Tension Test Results negative Upper Limb Tension Test Test Results negative Median Nerve Tension Test Results negative PT-OP-M Strength Start: 03/23/23 16:58 Freq: Status: Active Protocol: Document 03/24/23 11:21 AM (Rec: 03/24/23 12:53 AM [id number]) Shoulder Strength Shoulder Manual Muscle Testing Left Flexion 4+ Good+ Abduction (C5) 5 Normal External Rotation 5 Normal Internal Rotation 5 Normal Right Flexion 4- Good- Abduction (C5) 4- Good- External Rotation 4- Good- Internal Rotation 4- Good- PT-OP-Q Treatments Start: 03/23/23 16:58 Freq: Status: Active Protocol: Document 05/11/23 09:41 NBM (Rec: 05/11/23 10:36 NBM [id number]) Therapeutic Exercises Prone Exercises Row Prone Exercise Name Prone row Reps/Minutes 2x10 Shoulder extension Prone Exercise Name prone extension Equipment Used towel roll under forehead Reps/Minutes 2x10 Standing Exercises Wall slide Standing Exercise Name wall slide at corner of wall Reps/Minutes x10 Shoulder extension Standing Exercise Name shoulder extension Side bilateral Resistance peach TB Reps/Minutes 2x10 Comments cues for UT overactivation w/ fatigue Row Standing Exercise Name Standing row Side bilateral Resistance PEach TB Equipment Used PEach TB Reps/Minutes 2x10 Comments cues for UT overactivation resolve shoulder discomfort Manual Therapy Treatment Soft Tissue Mobilization R UT/pecs Body Location Supine Mobilization Type Myofascial Release,Trigger Point Release Intensity/Depth Moderate Body Position Supine Shoulder Body Location periscapular muscles Mobilization Type Myofascial Release,Trigger Point Release Intensity/Depth Moderate Body Position Sidelying Joint Mobilizations Shoulder Joint R glenohumeral, scapulothoracic Direction S-I and A-P, up/down rot Grade II Body Position Supine Comments R GH distraction in scapular plane. Manual pec stretch. Manual Traction Cervical Details Cervical traction Body Position Hooklying Reps/Duration 2x1 min Manual Techniques Shoulder PROM Type Shoulder PROM, all directions Body Position Supine PT-OP-T Assessment and Plan Start: 03/23/23 16:58 Freq: Status: Active Protocol: Document 05/11/23 09:41 NB (Rec: 05/11/23 10:36 NBM [id number]) Physical Therapy Assessment Goals Heavy cleaning Impairment Pain with functional task of cleaning. [facility] Goal (LTG) Pt will report that she is no longer having pain with cleaning tasks, including using a broom. 05/04/23: Pt continues to report pain with cleaning tasks. LTG Duration 06/02/23 Driving Impairment Pain with functional task Impairment Pt with reported increase in pain with driving. Cage Maker Machine Goal (LTG) Pt will report that she is no longer having shoulder pain with driving. LTG Duration 05/05/23 Strength Impairment Strength impairment Impairment Pt's R shoulder strength at 4- /5 grossly. Short Term Goal (STG) Pt with R shoulder strength at 4/5 grossly. STG Duration 04/14/23 Cage Maker Machine Goal (LTG) Pt with R shoulder strength at 4+/5-5/5 grossly. 05/04/23: Pt continues to demonstrate shoulder strength deficits at 4-/5 grossly. LTG Duration 06/02/23 Two Impairment QuickDash Impairment Pt's Quickdash score indicates 25% impairment. Cage Maker Machine Goal (LTG) Pt with Quickdash score of <10 % impairment LTG Duration 06/02/23 Pain Impairment Pain Impairment Pt reports pain at 5/10 at the worst. Short Term Goal (STG) Pt to report pain at 2/10 at the worst. STG Duration 04/14/23 Cage Maker Machine Goal (LTG) Pt to report pain at 1/10 at the worst. 05/04/23: Pt with reducted pain , reporting 0.5/10, though has had decrease in activity secondary to recent vacation. Pt reports an increase in shoulder symptoms as she increases activity. LTG Duration 06/02/23 Assessment Summary Assessment Sylvia requires cues with resisted shoulder ex's for Upper trapezius m overactivation but form and self-awareness improves w/ tactile cues, education and repetition. Pt is encouraged to continue HEP of standing resisted rows, extension and wall slides w/ scapular setting focus and encouraged to take breaks if UT overactivation occurs with fatigue. Brief discussion of self-STM w/ tennis ball or theracane. Physical Therapy Plan Frequency and Duration Frequency of Treatment 2x/Week Duration of treatment (weeks) 10 Plan of Care Start Date 03/24/23 Plan of Care End Date 06/02/23 Therapeutic Interventions Therapeutic Interventions Home Exercise Program,Joint Mobilizations,Manual Therapy, Neuromuscular Re-education, Patient/Caregiver Education, Self-Care/Home Management,Soft Tissue Mobilization, Therapeutic Activities, Therapeutic Exercises Modalities Cold Pack/Ice Massage,Electric Stimulation,Hot Packs, Ultrasound Hold Physical Therapy Reason For Hold Pt on hold until pt visits with her referring provider and returns from her upcoming trip. Next Visit Focus/Plan Next Note Type Treatment Note Next Visit Plan gradually progress shoulder strength/AROM and postural strength as tolerated
--- NOTE | 2023-05-14 10:36 | PT.OTN ---
Current Diagnoses Other shoulder lesions, right shoulder (05/14/23) Physical Therapy Treatment Note PT-OP-A Visit Information Start: 03/23/23 16:58 Freq: Status: Active Protocol: Document 05/14/23 10:36 AM (Rec: 05/14/23 11:31 AM [id number]) Out-Patient Physical Therapy Visit Information Visit Information Visit Type Treatment Note Visit Start Time 10:36 Visit Stop Time 10:20 Total Visit Minutes 44 Visit Number 7 Number of MAINTENANCE OF WAY CLERK Visits 1 PT-OP-B Current Condition Start: 03/23/23 16:58 Freq: Status: Active Protocol: Document 05/04/23 09:47 AM (Rec: 05/04/23 14:26 AM [id number]) Current Condition History of Current Condition Onset Date Pt reports chronic shoulder with recent exacerbation. Current Complaints R upper arm pain History of Current Condition Pt reports that she has R UE symptoms that range from her shoulder to her hand. Pt reports that pain is mostly at upper arm now. Pt reports that she sleeps on that shoulder. Pt reports previous L adhesive capsulitis. Pt reports hx of neck issues. Pt feels symptoms are from overuse PT-OP-C Subjective Start: 03/23/23 16:58 Freq: Status: Active Protocol: Document 05/14/23 10:36 AM (Rec: 05/14/23 11:31 AM [id number]) OP-PT Subjective Patient Comments Patient Comments Pt reports that she is noticing some discomfort inferior/medial to scapula since previous session. PT-OP-J Posture/Palpation/Skin Start: 03/23/23 16:58 Freq: Status: Active Protocol: Document 03/24/23 11:21 AM (Rec: 03/24/23 12:53 AM [id number]) Posture Evaluation Position Sitting Head/C-Spine Posture Forward Head Shoulder Posture (L) Rounded,(R) Rounded,(L) Forward,(R) Forward Scapula Posture (L) Protracted,(R) Protracted Palpation Assessment Location Shoulder Palpation Location infraspinatus, UT, pecs Palpation Findings Soft Tissue Tightness, Tenderness PT-OP-K Range of Motion Start: 03/23/23 16:58 Freq: Status: Active Protocol: Document 05/04/23 09:47 AM (Rec: 05/04/23 14:26 AM [id number]) Shoulder Goniometric Range of Motion Shoulder Right Active Flexion 160 Abduction 160 External Rotation at 45 degrees 60 Abduction Internal Rotation Behind Back (text) T12 Comments T5 Aply ER. PT-OP-L Special Tests Start: 03/23/23 16:58 Freq: Status: Active Protocol: Document 03/24/23 11:21 AM (Rec: 03/24/23 12:53 AM [id number]) Special Tests Shoulder Special Tests Hill Oscar Impingement Test Results positive Speed's Biceps Test Results positive Empty Can Test Results negative Drop Arm Rotator Cuff Test Results negative Neural Special Tests- Upper Body Radial Nerve Tension Test Results negative Upper Limb Tension Test Test Results negative Median Nerve Tension Test Results negative PT-OP-M Strength Start: 03/23/23 16:58 Freq: Status: Active Protocol: Document 03/24/23 11:21 AM (Rec: 03/24/23 12:53 AM [id number]) Shoulder Strength Shoulder Manual Muscle Testing Left Flexion 4+ Good+ Abduction (C5) 5 Normal External Rotation 5 Normal Internal Rotation 5 Normal Right Flexion 4- Good- Abduction (C5) 4- Good- External Rotation 4- Good- Internal Rotation 4- Good- PT-OP-Q Treatments Start: 03/23/23 16:58 Freq: Status: Active Protocol: Document 05/14/23 10:36 AM (Rec: 05/14/23 11:31 AM [id number]) Cardio Equipment Upper Body Ergometer (UBE) Duration (Minutes) 4 RPM 60 Seat Position 15 Therapeutic Exercises Prone Exercises Row Prone Exercise Name Prone row Reps/Minutes 2x10 Comments manual cueing for scapular control Shoulder extension Prone Exercise Name prone extension Reps/Minutes 2x10 Comments manual cueing for scapular control Sidelying Exercises Sidelying ER Sidelying Exercise Name shoulder ER, belly to neutral Side right Reps/Minutes x10 Comments tactile cueing for LT stabilization Standing Exercises Wall slide Standing Exercise Name wall slide at corner of wall Reps/Minutes x10 Shoulder extension Standing Exercise Name shoulder extension Side bilateral Resistance peach TB Reps/Minutes 2x10 Comments cues for UT overactivation w/ fatigue Manual Therapy Treatment Soft Tissue Mobilization R UT/pecs Body Location Supine Mobilization Type Myofascial Release,Trigger Point Release Intensity/Depth Moderate Body Position Supine Shoulder Body Location deltoids Mobilization Type Myofascial Release,Trigger Point Release Intensity/Depth Moderate Body Position Supine Joint Mobilizations Shoulder Joint R glenohumeral, scapulothoracic Direction S-I and A-P, up/down rot Grade II Body Position Supine Comments R GH distraction in scapular plane. Manual pec stretch. Manual Techniques Shoulder PROM Type Shoulder PROM, all directions Body Position Supine Pec minor stretch Type pec minor stretch Body Position Supine Reps/Duration 2x30 sec PT-OP-T Assessment and Plan Start: 03/23/23 16:58 Freq: Status: Active Protocol: Document 05/14/23 10:36 AM (Rec: 05/14/23 11:31 AM [id number]) Physical Therapy Assessment Goals Heavy cleaning Impairment Pain with functional task of cleaning. Ui Ux Engineer Goal (LTG) Pt will report that she is no longer having pain with cleaning tasks, including using a broom. 05/04/23: Pt continues to report pain with cleaning tasks. LTG Duration 06/02/23 Driving Impairment Pain with functional task Impairment Pt with reported increase in pain with driving. Alf Goal (LTG) Pt will report that she is no longer having shoulder pain with driving. LTG Duration 05/05/23 Strength Impairment Strength impairment Impairment Pt's R shoulder strength at 4- /5 grossly. Short Term Goal (STG) Pt with R shoulder strength at 4/5 grossly. STG Duration 04/14/23 Ui Ux Engineer Goal (LTG) Pt with R shoulder strength at 4+/5-5/5 grossly. 05/04/23: Pt continues to demonstrate shoulder strength deficits at 4-/5 grossly. LTG Duration 06/02/23 Two Impairment QuickDash Impairment Pt's Quickdash score indicates 25% impairment. Alf Goal (LTG) Pt with Quickdash score of <10 % impairment LTG Duration 06/02/23 Pain Impairment Pain Impairment Pt reports pain at 5/10 at the worst. Short Term Goal (STG) Pt to report pain at 2/10 at the worst. STG Duration 04/14/23 Alf Goal (LTG) Pt to report pain at 1/10 at the worst. 05/04/23: Pt with reducted pain , reporting 0.5/10, though has had decrease in activity secondary to recent vacation. Pt reports an increase in shoulder symptoms as she increases activity. LTG Duration 06/02/23 Assessment Summary Assessment Pt requires cueing throughout tx session for decreased activation of R UT, even at rest. Pt demonstrates stiffness at bilateral pec minor, with R stiffer than L. Pt able to tolerate PROM flexion and abduction well, though demonstrates shoulder discomfort with shoulder ER at 45 degrees (propped on 1/2 foam roll). Pt would benefit from continued PT to gradually progress strength and ROM as tolerated. Physical Therapy Plan Frequency and Duration Frequency of Treatment 2x/Week Duration of treatment (weeks) 10 Plan of Care Start Date 03/24/23 Plan of Care End Date 06/02/23 Therapeutic Interventions Therapeutic Interventions Home Exercise Program,Joint Mobilizations,Manual Therapy, Neuromuscular Re-education, Patient/Caregiver Education, Self-Care/Home Management,Soft Tissue Mobilization, Therapeutic Activities, Therapeutic Exercises Modalities Cold Pack/Ice Massage,Electric Stimulation,Hot Packs, Ultrasound Next Visit Focus/Plan Next Note Type Treatment Note Next Visit Plan gradually progress shoulder strength/AROM and postural strength as tolerated
--- NOTE | 2023-05-28 13:31 | PT.OTN ---
Current Diagnoses Other shoulder lesions, right shoulder (05/28/23) Physical Therapy Treatment Note PT-OP-A Visit Information Start: 03/23/23 16:58 Freq: Status: Active Protocol: Document 05/28/23 13:31 AM (Rec: 05/28/23 14:18 AM [id number]) Out-Patient Physical Therapy Visit Information Visit Information Visit Type Treatment Note Visit Start Time 13:31 Visit Stop Time 14:14 Total Visit Minutes 43 Visit Number 9 PT-OP-B Current Condition Start: 03/23/23 16:58 Freq: Status: Active Protocol: Document 05/04/23 09:47 AM (Rec: 05/04/23 14:26 AM [id number]) Current Condition History of Current Condition Onset Date Pt reports chronic shoulder with recent exacerbation. Current Complaints R upper arm pain History of Current Condition Pt reports that she has R UE symptoms that range from her shoulder to her hand. Pt reports that pain is mostly at upper arm now. Pt reports that she sleeps on that shoulder. Pt reports previous L adhesive capsulitis. Pt reports hx of neck issues. Pt feels symptoms are from overuse PT-OP-C Subjective Start: 03/23/23 16:58 Freq: Status: Active Protocol: Document 05/28/23 13:31 AM (Rec: 05/28/23 14:18 AM [id number]) OP-PT Subjective Patient Comments Patient Comments Pt reports that her shoulder feels much better than it did at the start of tx. Pt reports that she has noticed that she gets a 24 hour headache after PT if she has manual cervical traction. PT-OP-J Posture/Palpation/Skin Start: 03/23/23 16:58 Freq: Status: Active Protocol: Document 03/24/23 11:21 AM (Rec: 03/24/23 12:53 AM [id number]) Posture Evaluation Position Sitting Head/C-Spine Posture Forward Head Shoulder Posture (L) Rounded,(R) Rounded,(L) Forward,(R) Forward Scapula Posture (L) Protracted,(R) Protracted Palpation Assessment Location Shoulder Palpation Location infraspinatus, UT, pecs Palpation Findings Soft Tissue Tightness, Tenderness PT-OP-K Range of Motion Start: 03/23/23 16:58 Freq: Status: Active Protocol: Document 05/04/23 09:47 AM (Rec: 05/04/23 14:26 AM [id number]) Shoulder Goniometric Range of Motion Shoulder Right Active Flexion 160 Abduction 160 External Rotation at 45 degrees 60 Abduction Internal Rotation Behind Back (text) T12 Comments T5 Aply ER. PT-OP-L Special Tests Start: 03/23/23 16:58 Freq: Status: Active Protocol: Document 03/24/23 11:21 AM (Rec: 03/24/23 12:53 AM [id number]) Special Tests Shoulder Special Tests Hill Oscar Impingement Test Results positive Speed's Biceps Test Results positive Empty Can Test Results negative Drop Arm Rotator Cuff Test Results negative Neural Special Tests- Upper Body Radial Nerve Tension Test Results negative Upper Limb Tension Test Test Results negative Median Nerve Tension Test Results negative PT-OP-M Strength Start: 03/23/23 16:58 Freq: Status: Active Protocol: Document 03/24/23 11:21 AM (Rec: 03/24/23 12:53 AM [id number]) Shoulder Strength Shoulder Manual Muscle Testing Left Flexion 4+ Good+ Abduction (C5) 5 Normal External Rotation 5 Normal Internal Rotation 5 Normal Right Flexion 4- Good- Abduction (C5) 4- Good- External Rotation 4- Good- Internal Rotation 4- Good- PT-OP-Q Treatments Start: 03/23/23 16:58 Freq: Status: Active Protocol: Document 05/28/23 13:31 AM (Rec: 05/28/23 14:18 AM [id number]) Therapeutic Exercises Supine Exercises Flexion rhythmic stab Reps/Minutes x30 sec Prone Exercises Row Prone Exercise Name Prone row Reps/Minutes 2x10 Comments manual cueing for scapular control Shoulder extension Prone Exercise Name prone extension Reps/Minutes 2x10 Comments manual cueing for scapular control Sidelying Exercises Sidelying ER Sidelying Exercise Name shoulder ER, belly to neutral Side right Reps/Minutes x10 Comments tactile cueing for LT stabilization Shoulder abduction Reps/Minutes x5, then abduction iso x30 sec Standing Exercises Wall slide Standing Exercise Name wall slide at corner of wall Reps/Minutes x10 Shoulder extension Standing Exercise Name shoulder extension Side bilateral Resistance orange TB Reps/Minutes x10 Comments cues for UT overactivation w/ fatigue Row Standing Exercise Name Standing row Side bilateral Resistance OTB Equipment Used OTB Reps/Minutes x10 Comments cues for UT overactivation resolve shoulder discomfort Manual Therapy Treatment Soft Tissue Mobilization R UT/pecs Body Location R pecs, periscapular muscles, R UT Mobilization Type Myofascial Release,Trigger Point Release Intensity/Depth Moderate Body Position Supine Shoulder Body Location deltoids Mobilization Type Myofascial Release,Trigger Point Release Intensity/Depth Moderate Body Position Supine Joint Mobilizations Shoulder Joint R glenohumeral Direction S-I and A-P Grade II Body Position Supine Comments R GH distraction in scapular plane w/ oscillations. Manual Techniques Shoulder PROM Type Shoulder PROM, all directions Body Position Supine PT-OP-T Assessment and Plan Start: 03/23/23 16:58 Freq: Status: Active Protocol: Document 05/28/23 13:31 AM (Rec: 05/28/23 14:18 AM [id number]) Physical Therapy Assessment Goals Heavy cleaning Impairment Pain with functional task of cleaning. Group Home Goal (LTG) Pt will report that she is no longer having pain with cleaning tasks, including using a broom. 05/04/23: Pt continues to report pain with cleaning tasks. LTG Duration 06/02/23 Driving Impairment Pain with functional task Impairment Pt with reported increase in pain with driving. Group Home Goal (LTG) Pt will report that she is no longer having shoulder pain with driving. 05/25/23: She's been holding wheel lower than 10 and 2 o clock and hasn't had as much pain. LTG Duration 05/05/23 Strength Impairment Strength impairment Impairment Pt's R shoulder strength at 4- /5 grossly. Short Term Goal (STG) Pt with R shoulder strength at 4/5 grossly. STG Duration 04/14/23 Diesel Truck Technician Goal (LTG) Pt with R shoulder strength at 4+/5-5/5 grossly. 05/04/23: Pt continues to demonstrate shoulder strength deficits at 4-/5 grossly. LTG Duration 06/02/23 Pain Impairment Pain Impairment Pt reports pain at 5/10 at the worst. Short Term Goal (STG) Pt to report pain at 2/10 at the worst. STG Duration 04/14/23 Group Home Goal (LTG) Pt to report pain at 1/10 at the worst. 05/04/23: Pt with reducted pain , reporting 0.5/10, though has had decrease in activity secondary to recent vacation. Pt reports an increase in shoulder symptoms as she increases activity. LTG Duration 06/02/23 Assessment Summary Assessment Pt's R shoulder stretched into horizontal abduction for pec stretch, with pt reporting elbow and hand symptoms in median nerve distribution. Median nerve tension test positive. Pt demonstrates good shoulder PROM in all other directions. Pt demonstrates improved scapular control with decreased activation of UT. Pt will return to PT next week to reassess to determine future POC and update HEP. Physical Therapy Plan Frequency and Duration Frequency of Treatment 2x/Week Duration of treatment (weeks) 10 Plan of Care Start Date 03/24/23 Plan of Care End Date 06/02/23 Therapeutic Interventions Therapeutic Interventions Home Exercise Program,Joint Mobilizations,Manual Therapy, Neuromuscular Re-education, Patient/Caregiver Education, Self-Care/Home Management,Soft Tissue Mobilization, Therapeutic Activities, Therapeutic Exercises Modalities Cold Pack/Ice Massage,Electric Stimulation,Hot Packs, Ultrasound Next Visit Focus/Plan Next Note Type Progress Note Next Visit Plan reassess for updated POC or d/ c as appropriate, update HEP
--- NOTE | 2023-06-01 10:38 | PT.OTN ---
Current Diagnoses Other shoulder lesions, right shoulder (06/01/23) Physical Therapy Treatment Note PT-OP-A Visit Information Start: 03/23/23 16:58 Freq: Status: Active Protocol: Document 06/01/23 10:38 AM (Rec: 06/01/23 11:35 AM [id number]) Out-Patient Physical Therapy Visit Information Visit Information Visit Type Treatment Note Visit Start Time 10:38 Visit Stop Time 11:20 Total Visit Minutes 42 Visit Number 10 PT-OP-B Current Condition Start: 03/23/23 16:58 Freq: Status: Active Protocol: Document 05/04/23 09:47 AM (Rec: 05/04/23 14:26 AM [id number]) Current Condition History of Current Condition Onset Date Pt reports chronic shoulder with recent exacerbation. Current Complaints R upper arm pain History of Current Condition Pt reports that she has R UE symptoms that range from her shoulder to her hand. Pt reports that pain is mostly at upper arm now. Pt reports that she sleeps on that shoulder. Pt reports previous L adhesive capsulitis. Pt reports hx of neck issues. Pt feels symptoms are from overuse PT-OP-C Subjective Start: 03/23/23 16:58 Freq: Status: Active Protocol: Document 06/01/23 10:38 AM (Rec: 06/01/23 11:35 AM [id number]) OP-PT Subjective Patient Comments Patient Comments Pt reports that she had a flare-up of symptoms this last weeked. She got a covid vaccine on her L arm, therefore slept on her R shoulder for the past few nights. PT-OP-J Posture/Palpation/Skin Start: 03/23/23 16:58 Freq: Status: Active Protocol: Document 03/24/23 11:21 AM (Rec: 03/24/23 12:53 AM [id number]) Posture Evaluation Position Sitting Head/C-Spine Posture Forward Head Shoulder Posture (L) Rounded,(R) Rounded,(L) Forward,(R) Forward Scapula Posture (L) Protracted,(R) Protracted Palpation Assessment Location Shoulder Palpation Location infraspinatus, UT, pecs Palpation Findings Soft Tissue Tightness, Tenderness PT-OP-K Range of Motion Start: 03/23/23 16:58 Freq: Status: Active Protocol: Document 05/04/23 09:47 AM (Rec: 05/04/23 14:26 AM [id number]) Shoulder Goniometric Range of Motion Shoulder Right Active Flexion 160 Abduction 160 External Rotation at 45 degrees 60 Abduction Internal Rotation Behind Back (text) T12 Comments T5 Aply ER. PT-OP-L Special Tests Start: 03/23/23 16:58 Freq: Status: Active Protocol: Document 03/24/23 11:21 AM (Rec: 03/24/23 12:53 AM [id number]) Special Tests Shoulder Special Tests Hill Oscar Impingement Test Results positive Speed's Biceps Test Results positive Empty Can Test Results negative Drop Arm Rotator Cuff Test Results negative Neural Special Tests- Upper Body Radial Nerve Tension Test Results negative Upper Limb Tension Test Test Results negative Median Nerve Tension Test Results negative PT-OP-M Strength Start: 03/23/23 16:58 Freq: Status: Active Protocol: Document 03/24/23 11:21 AM (Rec: 03/24/23 12:53 AM [id number]) Shoulder Strength Shoulder Manual Muscle Testing Left Flexion 4+ Good+ Abduction (C5) 5 Normal External Rotation 5 Normal Internal Rotation 5 Normal Right Flexion 4- Good- Abduction (C5) 4- Good- External Rotation 4- Good- Internal Rotation 4- Good- PT-OP-Q Treatments Start: 03/23/23 16:58 Freq: Status: Active Protocol: Document 06/01/23 10:38 AM (Rec: 06/01/23 11:35 AM [id number]) Therapeutic Exercises Prone Exercises Row Prone Exercise Name Prone row Reps/Minutes 2x10 Comments manual cueing for scapular control Shoulder extension Prone Exercise Name prone extension Reps/Minutes 2x10 Comments manual cueing for scapular control Sidelying Exercises Sidelying ER Sidelying Exercise Name shoulder ER, belly to neutral Side right Reps/Minutes 2x10 Comments tactile cueing for LT stabilization Shoulder abduction Reps/Minutes abd rhythmic stab 2x30 sec Standing Exercises Wall slide Standing Exercise Name wall slide at corner of wall Reps/Minutes x10 Shoulder extension Standing Exercise Name shoulder extension Side bilateral Resistance orange TB Reps/Minutes 2x10 Comments cues for UT overactivation w/ fatigue Row Standing Exercise Name Standing row Side bilateral Resistance OTB Equipment Used OTB Reps/Minutes x10 Comments cues for UT overactivation resolve shoulder discomfort PT-OP-T Assessment and Plan Start: 03/23/23 16:58 Freq: Status: Active Protocol: Document 06/01/23 10:38 AM (Rec: 06/01/23 11:35 AM [id number]) Physical Therapy Assessment Goals Heavy cleaning Impairment Pain with functional task of cleaning. Diving Coach Goal (LTG) Pt will report that she is no longer having pain with cleaning tasks, including using a broom. 05/04/23: Pt continues to report pain with cleaning tasks. 06/01/23: Pt reports that she has made modifications in cleaning LTG Duration 06/02/23 Driving Impairment Pain with functional task Impairment Pt with reported increase in pain with driving. Snf Goal (LTG) Pt will report that she is no longer having shoulder pain with driving. 05/25/23: She's been holding wheel lower than 10 and 2 o clock and hasn't had as much pain. 06/01/23: Pt with decreased pain at shoulder with having arms lower. Pt educated on an inflable back pillow for car. LTG Duration 05/05/23 Strength Impairment Strength impairment Impairment Pt's R shoulder strength at 4- /5 grossly. Short Term Goal (STG) Pt with R shoulder strength at 4/5 grossly. STG Duration 04/14/23 Snf Goal (LTG) Pt with R shoulder strength at 4+/5-5/5 grossly. 05/04/23: Pt continues to demonstrate shoulder strength deficits at 4-/5 grossly. 06/01/23: Pt with strength gross shoulder strength of 4/5 . LTG Duration 06/02/23 Pain Impairment Pain Impairment Pt reports pain at 5/10 at the worst. Short Term Goal (STG) Pt to report pain at 2/10 at the worst. STG Duration 04/14/23 Diving Coach Goal (LTG) Pt to report pain at 1/10 at the worst. 05/04/23: Pt with reducted pain , reporting 0.5/10, though has had decrease in activity secondary to recent vacation. Pt reports an increase in shoulder symptoms as she increases activity. 06/01/23: Pt with increase in symptoms over the weekend from sleeping on R side. LTG Duration 06/02/23 Assessment Summary Assessment Pt agreeable to d/c today. Pt had been improving the last few weeks, though had recent increase in R clavicular symptoms from sleeping on her R UE over the weekend. Pt demonstrates improved scapular control since start of PT. Pt demonstrates R median neural symptoms as well. Pt demonstrates excellent shoulder ROM, though continues to have some discomfort with functional activities, including heavy cleaning activities. Pt d/c with HEP today. PT discussed continued focus on relaxation of UT with functional tasks and for good posture with activities including driving. Pt will contact referring provider if symptoms from recent exacerbation of symptoms do not resolve. Physical Therapy Plan Frequency and Duration Frequency of Treatment 2x/Week Duration of treatment (weeks) 10 Plan of Care Start Date 03/24/23 Plan of Care End Date 06/02/23 Therapeutic Interventions Therapeutic Interventions Home Exercise Program,Joint Mobilizations,Manual Therapy, Neuromuscular Re-education, Patient/Caregiver Education, Self-Care/Home Management,Soft Tissue Mobilization, Therapeutic Activities, Therapeutic Exercises Modalities Cold Pack/Ice Massage,Electric Stimulation,Hot Packs, Ultrasound Discharge Physical Therapy Discharge Reasons Plateau in Progress Discharge Comments Pt d/c from PT today. Pt has attended 10 PT sessions. Pt had been improving with decreased pain and improved function, though has had recent increase in symptoms following sleeping on her R shoulder over the weekend. Pt would like to d/c today and continue independent exercise at this time. Pt will contact referring provider for further imaging of shoulder if recent exacerbation of symptoms do not resolve with HEP. Next Visit Focus/Plan Next Note Type Discharge Summary
== END 2023-06-04 14:11 | disposition home or self-care (01) ==
LOC: PHYS 10:30
PROVIDERS: Family Provider Internal Medicine; PCP Internal Medicine; Referring Provider Internal Medicine; Visit Provider Internal Medicine
DX: M75.81 Other shoulder lesions, right shoulder (principal)
CPT/HCPCS: 97110; 97140; 97161; 97530

== ENCOUNTER → 2023-08-03 10:42 | Outpatient (CLI) | payer MEDICARE, OTHER, SELFPAY ==
[2021-09-11 16:46] VITALS: BMI 26.3
[2023-08-03 13:02] LABS: Hemoglobin 14.4 g/dL (12.0-16.0); Mean Corpuscular HGB Conc 33.5 % (30-36); Mean Corpuscular Hemoglobin 29.2 PG (26-34); Mean Corpuscular Volume 87.3 fL (80-100); Platelet Count 260 X10^3/uL (150-400); Red Blood Cell Count 4.93 X10^6/uL (4.0-5.2); Red Cell Distribution Width 14.3 % (11.6-14.8); White Blood Cell Count 5.5 X10^3/uL (4.5-11.0)
[2023-08-03 13:14] LABS: Aspartate Aminotransferase 38 IU/L (14-36); BUN Creatinine Ratio 21.9 (6-22); Blood Urea Nitrogen 16 mg/dL (7-17); Calcium 9.8 mg/dL (8.4-10.2); Carbon Dioxide 28 mmol/L (22-32); Chloride 98 mmol/L (98-107); Cholesterol 263 mg/dL (140-199); Estimated Glomerular Filt Rate > 60 mL/min (>60); Glucose 96 mg/dL (80-110); HDL Cholesterol 79 mg/dL (40-60); HEMOLYSIS < 15 (0-50); LDL Cholesterol Calculated 163 mg/dL (<100); Potassium 4.3 mmol/L (3.4-5.1); Sodium 135 mmol/L (137-145); Triglycerides 106 mg/dL (35-150)
[2023-08-03 13:40] LABS: TSH w/ Reflex to FT4 2.66 uIU/mL (0.47-4.68)
== END ==
LOC: LAB 10:44
PROVIDERS: Family Provider Internal Medicine; PCP Internal Medicine; Referring Provider Internal Medicine; Visit Provider Internal Medicine
DX: E03.9 Hypothyroidism, unspecified (principal); E78.2 Mixed hyperlipidemia; Z79.01 Long term (current) use of anticoagulants
CPT/HCPCS: 36415; 80048; 80061; 84443; 84450; 85027

== ENCOUNTER → 2024-02-26 10:52 | Outpatient (CLI) | payer MEDICARE, OTHER, SELFPAY ==
[2021-09-11 16:46] VITALS: BMI 26.3
--- NOTE | 2024-02-26 | DI.MG.S_ITS ---
BILATERAL DIGITAL SCREENING MAMMOGRAM 3D/2D WITH CAD: 02/26/2024 CLINICAL: Routine screening. Family history of breast cancer. Comparison is made to exams dated: 02/04/2023 mammogram, 01/16/2022 mammogram, and 01/09/2021 mammogram - [facility]. Both breasts are heterogeneously dense, which may obscure small masses (category c / 51-75% glandular tissue). Current study was also evaluated with a Computer Aided Detection (CAD) system. There are benign vascular calcifications in both breasts. No significant masses, calcifications, or other findings are seen in either breast. There has been no significant interval change. IMPRESSION: BENIGN There is no mammographic evidence of malignancy. A 1 year screening mammogram is recommended. Based on the Tyrer Cuzick model (a risk assessment model) the patient's lifetime risk is 3.6% and her 10 year risk is 2.1%. According to the ACR, ACS, and NCCN guidelines, an annual breast MRI exam along with mammogram is recommended if the patient's lifetime risk is 20% or greater. This exam was interpreted at Station ID: [id number]. NOTE: For mammograms, a report in lay terms will be sent to the patient. Approximately 15% of breast malignancies will not be visualized mammographically. In the management of a palpable breast mass, a negative mammogram must not discourage biopsy of a clinically suspicious lesion. Electronically Signed By: Ricardo kramer/sarahi:02/26/2024 13:22:34 letter sent: Normal Exam ACR BI-RADS Category 2: Benign Finding(s) [id number]
== END ==
LOC: MAMMO 10:53
PROVIDERS: Family Provider Internal Medicine; PCP Internal Medicine; Referring Provider Internal Medicine; Visit Provider Internal Medicine
DX: Z12.31 Encounter for screening mammogram for malignant neoplasm of breast (principal); Z80.3 Family history of malignant neoplasm of breast; R92.333 Mammographic heterogeneous density, bilateral breasts
CPT/HCPCS: 77063; 77067

== ENCOUNTER → 2024-03-02 12:35 | Outpatient (CLI) | payer MEDICARE, OTHER, SELFPAY ==
[2021-09-11 16:46] VITALS: BMI 26.3
--- NOTE | 2024-03-02 12:36 | DI.RAD.S_ITS ---
PROCEDURE: XR HIP W PEL IF DONE GAIL MIN 4V INDICATIONS: Right hip pain - suspect OA TECHNIQUE: AP pelvis with lateral view(s) of the bilateral hip(s). COMPARISON: [facility], , XR HIP W PEL IF DONE GAIL 3TO4V, 05/14/2021, 9:20. FINDINGS: Bones: No fractures or dislocations. Only a slight degree of hip joint osteoarthritis is present, considered symmetric. Pelvic ring appears intact. No suspicious bony lesions. Soft tissues: The visualized bowel gas pattern is normal. No suspicious soft tissue calcifications. IMPRESSION: Minimal hip joint osteoarthritis present bilaterally, symmetric. Source of asymmetric right hip pain is not seen. Dictated by: Damon Darnell M.D. on 03/02/2024 at 14:13 Approved by: Damon Darnell M.D. on 03/02/2024 at 14:14
--- NOTE | 2024-03-02 12:36 | DI.RAD.S_ITS ---
PROCEDURE: XR KNEE RT 3V INDICATIONS: Right knee pain TECHNIQUE: 3 views of the knee were acquired. COMPARISON: None. FINDINGS: Bones: No fractures or dislocations. No suspicious bony lesions. Soft tissues: No joint effusion. No suspicious soft tissue calcifications. IMPRESSION: No acute bony abnormality or significant effusion. Dictated by: Damon Darnell M.D. on 03/02/2024 at 14:14 Approved by: Damon Darnell M.D. on 03/02/2024 at 14:15
== END ==
PROVIDERS: Family Provider Internal Medicine; PCP Internal Medicine; Referring Provider Physician Assistant; Visit Provider Physician Assistant
DX: M25.551 Pain in right hip (principal); M25.561 Pain in right knee
CPT/HCPCS: 73522; 73562

== ENCOUNTER → 2024-05-05 08:56 | Outpatient (CLI) | payer MEDICARE, OTHER, SELFPAY ==
[2021-09-11 16:46] VITALS: BMI 26.3
--- NOTE | 2024-05-05 08:58 | DI.RAD.S_ITS ---
PROCEDURE: XR SHOULDER RT MIN 2V INDICATIONS: right shoulder pain, no trauma TECHNIQUE: 3 views of the shoulder were acquired. COMPARISON: None. FINDINGS: Bones: No fractures or dislocations. Moderate acromioclavicular joint osteoarthritic changes are seen with joint space narrowing, subchondral sclerosis and inferior osteophyte formation. Moderate glenohumeral joint osteoarthritic changes also seen with joint space narrowing, subchondral sclerosis and inferior marginal osteophyte formation. No suspicious bony lesions. Visualized ribs appear intact. Soft tissues: No suspicious soft tissue calcifications. IMPRESSION: No acute shoulder fracture or dislocation. Moderate right shoulder joint osteoarthritis. Dictated by: Josef Chacon M.D. on 05/05/2024 at 12:51 Approved by: Josef Chacon M.D. on 05/05/2024 at 12:55
== END ==
PROVIDERS: Family Provider Internal Medicine; PCP Internal Medicine; Referring Provider Internal Medicine; Visit Provider Internal Medicine
DX: M19.011 Primary osteoarthritis, right shoulder (principal); M75.81 Other shoulder lesions, right shoulder
CPT/HCPCS: 73030

== ENCOUNTER → 2024-08-17 16:17 | Outpatient (CLI) | payer MEDICARE, OTHER, SELFPAY ==
[2021-09-11 16:46] VITALS: BMI 26.3
[2024-08-17 17:09] LABS: Hematocrit 40.2 % (36-46); Hemoglobin 13.4 g/dL (12.0-16.0); Mean Corpuscular HGB Conc 33.4 % (30-36); Mean Corpuscular Hemoglobin 29.1 PG (26-34); Mean Corpuscular Volume 87.2 fL (80-100); Platelet Count 255 X10^3/uL (150-400); Red Blood Cell Count 4.61 X10^6/uL (4.0-5.2); Red Cell Distribution Width 13.9 % (11.6-14.8); White Blood Cell Count 6.2 X10^3/uL (4.5-11.0)
[2024-08-17 17:45] LABS: Alanine Aminotransferase 27 IU/L (<35); Albumin 4.7 g/dL (3.5-5.0); Albumin Globulin Ratio 1.6 (1.0-2.8); Alkaline Phosphatase 89 U/L (38-126); Aspartate Aminotransferase 41 IU/L (14-36); BUN Creatinine Ratio 22.6 (6-22); Bilirubin Total 0.3 mg/dL (0.2-1.3); Blood Urea Nitrogen 19 mg/dL (7-17); Calcium 9.6 mg/dL (8.4-10.2); Carbon Dioxide 31 mmol/L (22-32); Chloride 102 mmol/L (98-107); Cholesterol 234 mg/dL (140-199); Estimated Glomerular Filt Rate > 60 mL/min (>60); Glucose 99 mg/dL (80-110); HDL Cholesterol 79 mg/dL (40-60); HEMOLYSIS < 15 (0-50); LDL Cholesterol Calculated 127 mg/dL (<100); Potassium 4.4 mmol/L (3.4-5.1); Sodium 138 mmol/L (137-145); Total Protein 7.7 g/dL (6.3-8.2); Triglycerides 138 mg/dL (35-150)
[2024-08-17 18:01] LABS: Vitamin D 25 Hydroxy (D3) 35.2 ng/mL (30.0-100.0)
[2024-08-17 18:17] LABS: TSH w/ Reflex to FT4 5.25 uIU/mL (0.47-4.68)
[2024-08-17 18:50] LABS: Free T4, Direct Thyroxine 0.96 ng/dL (0.78-2.19)
== END ==
PROVIDERS: Family Provider Internal Medicine; PCP Internal Medicine; Referring Provider Internal Medicine; Visit Provider Internal Medicine
DX: E03.9 Hypothyroidism, unspecified (principal); E78.2 Mixed hyperlipidemia; I48.0 Paroxysmal atrial fibrillation; E55.9 Vitamin D deficiency, unspecified
CPT/HCPCS: 36415; 80053; 80061; 82306; 84439; 84443; 85027

== ENCOUNTER → 2024-08-22 10:05 | Outpatient (CLI) | payer MEDICARE, OTHER, SELFPAY ==
[2021-09-11 16:46] VITALS: BMI 26.3
--- NOTE | 2024-08-22 10:06 | DI.RAD.S_ITS ---
PROCEDURE: XR DEXA AXIAL SKELETON INDICATIONS: osteopenia COMPARISON: [facility], , XR DEXA AXIAL SKELETON, 05/27/2021, 10:51. [facility], , XR DEXA AXIAL SKELETON, 05/25/2019, 14:58. FINDINGS: Lumbar Spine: Bone mineral density 0.936 g/cm2, T score -1, previously -0.8. Left Femoral Neck: Bone mineral density 0.590 g/cm2, T score -2.3. Left Hip: Bone mineral density 0.713 g/cm2, T score -1.9, previously -1.5. Fracture Risk Calculation (when applicable): 10-year fracture risk of a major osteoporotic fracture 13 percent and of a hip fracture 2.9 percent. (T score greater or equal to -1.0 to: NORMAL) (T score from -1.1 to -2.4: OSTEOPENIA) (T score less than or equal to -2.5: OSTEOPOROSIS) IMPRESSION: Osteopenia. Follow-up guidelines as follows: Osteoporosis: Consider a repeat DEXA and Vertebral Fracture Assessment (VFA) exam in 2 years or sooner if medically necessary, to reassess this patient's status. Osteopenia: Consider a repeat DEXA in 2-3 years to reassess this patient's status, or if there is a new clinical indication. Normal: Consider a repeat DEXA in 5 years or sooner, or if there is a new clinical indication. All treatment decisions require clinical judgment and consideration of individual patient factors, including patient preferences, comorbidities, previous drug use, risk factors not captured in the FRAX model (e.g., frailty, falls, vitamin D deficiency, increased bone turnover, interval significant decline in bone density ) and possible under- or over-estimation of fracture risk by FRAX. In addition, the NOF Guide recommends that FDA-approved medical therapies be considered in postmenopausal women and men age >= 50 years with a: * Hip or vertebral (clinical or morphometric) fracture * T-score of <=-2.5 at the spine or hip * Ten-year fracture probability by FRAX of >= 3% for hip fracture or >=20% for major osteoporotic fracture. Dictated by: Delvin Dukes M.D. on 08/22/2024 at 14:39 Approved by: Delvin Dukes M.D. on 08/22/2024 at 14:40
== END ==
LOC: RAD 10:05
PROVIDERS: Family Provider Internal Medicine; PCP Internal Medicine; Referring Provider Internal Medicine; Visit Provider Internal Medicine
DX: M85.89 Other specified disorders of bone density and structure, multiple sites (principal)
CPT/HCPCS: 77080

== ENCOUNTER 2024-10-12 08:36 | Day surgery (SDC) | payer MEDICARE, OTHER, SELFPAY ==
[2021-09-11 16:46] VITALS: BMI 26.3
[2024-10-12 08:59] VITALS: BP 127/74; PULSE 71; RESP 18; TEMP 36.4; O2SAT 98
[2024-10-12] MEDS: LACTATED RINGERS 1,000 ML 42 ML IV (09:06)
--- NOTE | 2024-10-12 09:36 | PM.HP.IH.1 ---
History of Present Illness History of Present Illness Date Patient Seen: 10/12/24 Chief complaint: SDC Narrative: History of large flat sessile serrated adenoma with follow-up colonoscopy-5 years ago. Need for routine follow-up. [facility] Medical History (Updated 08/17/24 @ 15:54 by Aydin Price MD) Primary osteoarthritis involving multiple joints Right rotator cuff tendonitis Overweight Disease of spine Fractures (~2019) Ovarian cyst Diverticular disease (~2019) History of colonic polyps Osteopenia (~2016) Obstructive sleep apnea Mixed hyperlipidemia Chronic anticoagulation Paroxysmal atrial fibrillation Atrophic vulvovaginitis Irritable bowel syndrome with both constipation and diarrhea Sleep apnea (~2012) Anxiety (~2017) Shoulder pain (~2015) Back problem Chronic back pain (~1979) Carpal tunnel syndrome (~1999) Rosacea (~1979) Actinic keratosis Measles Chicken pox Tinnitus (~1999) Hematuria (~2015) Hemorrhoid (~1972) GERD (gastroesophageal reflux disease) (~2020) Hypothyroidism (~1979) Palpitations Surgical History Colon polyps (~2019) [place] teeth extracted Anesthesia S/P ablation of atrial fibrillation (~2012) Ovarian cyst (~1976) History of carpal tunnel repair (~2008) History of tonsillectomy (~1958) Status post discectomy (~2012) Status post hysterectomy (~1979) Family History Child Awais's disease Grandmother Hypertension Mental health problem Mother Cancer Hypertension Grandfather Cancer Sister Age: 79 Melanoma Low TSH level TIA (transient ischemic attack) Hypertension Father Cancer Grandfather Dementia Alcoholism Grandmother No problems noted. 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 household members: spouse Smoking Status: Former smoker alcohol intake: never substance use type: does not use Meds Home Medications and Allergies Home Medications Medication Instructions Recorded Confirmed Type cholecalciferol (vitamin D3) 50 1 unit PO QDAY ##0 08/17/17 05/05/24 History mcg (2,000 unit) tablet multivitamin (Multiple Vitamins 1 tab PO QDAY ##0 08/17/17 05/05/24 History tablet) vitamin B complex (B 1 tab PO QDAY ##0 08/17/17 05/05/24 History Complex-Vitamin B12 tablet) Lacto.acidophilus-Bif.animalis 1 cap PO DAILY 02/05/22 05/05/24 History [Daily Probiotic] famotidine 10 mg tablet (Pepcid AC) 10 mg PO DAILY 02/05/22 10/12/24 History rivaroxaban 20 mg tablet (Xarelto) 20 mg PO DAILY 02/05/22 10/12/24 History fluticasone propionate 50 1 spray intranasal QDAY #48 grams 04/21/22 08/17/24 Rx mcg/actuation nasal spray,suspension (Flonase Allergy Relief) Collagen 1 tab PO DAILY 07/30/22 05/05/24 History diltiazem HCl 60 mg 60 mg PO BID PRN Atrial 07/30/22 10/12/24 History capsule,extended release 12 hr Fibrillation tretinoin 0.025 % topical cream 1 applic topical 3XW 07/30/22 05/05/24 History epinephrine 0.3 mg/0.3 mL 0.3 ml IM ONCE PRN 04/08/23 08/17/24 History injection, auto-injector estradiol 0.01% (0.1 mg/gram) 0.5 g topical 2XW #42.5 grams 07/29/24 08/17/24 Rx vaginal cream levothyroxine 50 mcg tablet 50 mcg PO DAILY #90 tabs 08/17/24 10/12/24 Rx sodium,potassium,mag sulfates 17.5 See Rx Instructions PO .COMPLEX 09/23/24 Rx gram-3.13 gram-1.6 gram oral soln #354 mL (Suprep Bowel Prep Kit) Allergies Allergy/AdvReac Type Severity Reaction Status Date / Time cat dander Allergy Mild congestion Verified 08/17/24 15:38 azithromycin [AZITHROMYCIN] Allergy Unknown HIves/itchi Verified 08/17/24 15:38 ng hydrocodone [HYDROCODONE] Allergy Unknown nausea Verified 08/17/24 15:38 adhesive tape AdvReac Mild Rash Verified 08/17/24 15:38 Exam Vital Signs (past 8 hours): - 10/12/24 08:59 Temperature 97.5 F L Pulse Rate 71 Respiratory Rate 18 Blood Pressure 127/74 Pulse Oximetry 98 Oxygen Delivery Method Room Air Oxygen Delivery Method Room Air Narrative Exam Narrative: Oropharynx free of lesions Chest clear to auscultation percussion Cardiac exam reveals no S3 or murmur Assessment & Plan Assessment & Plan narrative: History of large sessile serrated adenoma need for follow-up colonoscopy. Risks, benefits, alternatives have been explained. Time-Based Coding :: [TOTAL MINUTES] spent with patient and on the chart (including review of chart, obtaining history, exam, reviewing outside data, placing orders, documenting exam and treatment plan, and counseling patient) on [DATE]. 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
--- NOTE | 2024-10-12 09:37 | PM.OP.COLON ---
Operative Date/Time/Diagnoses Date of procedure: 10/12/24 Pre-op diagnosis: See indication and findings Procedure & Clinicians Study performed: Colonoscopy Same procedure as scheduled: Yes Indications: History of sessile sessile serrated adenomas Surgeon: Lavon Fisher Procedure Notes Procedure in detail: After informed consent was obtained the patient was placed in left lateral decubitus position. The video colonoscope was introduced the rectum slowly advanced cecum. On slow withdrawal mucosa was carefully examined. The scope was removed. The patient tolerated procedure well. Blood loss none Complications none Sedation mac Findings 1. Completely normal colonoscopy to cecum Patient should have follow-up colonoscopy in 5 years
[2024-10-12 10:03] VITALS: BP 102/54; PULSE 66; RESP 17; TEMP 36.2; O2SAT 99
[2024-10-12 10:08] VITALS: BP 112/63; PULSE 63; RESP 15; O2SAT 99
[2024-10-12 10:13] VITALS: BP 117/64; PULSE 62; RESP 12; O2SAT 100
[2024-10-12 10:25] VITALS: BP 120/64; PULSE 65; RESP 15; O2SAT 99
== END 2024-10-12 10:32 | disposition home or self-care (01) ==
PROVIDERS: Family Provider Internal Medicine; PCP Internal Medicine; Referring Provider Internal Medicine Gastroenterology; Visit Provider Internal Medicine Gastroenterology
PROC: 0DJD8ZZ Inspection of Lower Intestinal Tract, Via Natural or Artificial Opening Endoscopic (ICD-10-PCS; CPT 45378; principal; 2024-10-12 09:00)
DX: Z12.11 Encounter for screening for malignant neoplasm of colon (principal); Z86.0101 Personal history of adenomatous and serrated colon polyps; Z87.891 Personal history of nicotine dependence
CPT/HCPCS: G0105; J2704

== ENCOUNTER → 2024-10-13 14:53 | Outpatient (CLI) | payer MEDICARE, OTHER, SELFPAY ==
[2021-09-11 16:46] VITALS: BMI 26.3
[2024-10-13 15:32] LABS: Appearance Urine UA CLEAR; Bilirubin Urine UA NEGATIVE (NEGATIVE); Color Urine UA YELLOW; Glucose Urine UA NEGATIVE (Negative); Ketones Urine UA NEGATIVE (NEGATIVE); Leukocyte Esterase Urine UA 2+ (NEGATIVE); Nitrite Urine UA NEGATIVE (Negative); Occult Blood Urine UA 2+ (Negative); Protein Urine UA NEGATIVE (Negative); Specific Gravity Urine UA <=1.005 (1.000-1.035); Urobilinogen Urine UA 0.2 E.U./dL (0.2)
[2024-10-13 15:37] LABS: Bacteria Urine Many (>30); RBC Urine 0-1/HPF (0-5/HPF); Urine Volume 10mL (spun); WBC Urine 10-30/HPF (0-5/HPF)
[2024-10-13 15:38] LABS: Culture Indicated Urine Specimen Cultured; Squamous Epithelial Cell Urine 0-1 /HPF (0-5/HPF)
== END ==
PROVIDERS: Family Provider Internal Medicine; PCP Internal Medicine; Visit Provider Internal Medicine
DX: N10 Acute pyelonephritis (principal)
CPT/HCPCS: 81001; 87077; 87086; 87186

== ENCOUNTER → 2024-11-05 08:11 | Outpatient (CLI) | payer MEDICARE, OTHER, SELFPAY ==
[2021-09-11 16:46] VITALS: BMI 26.3
== END ==
PROVIDERS: Family Provider Internal Medicine; PCP Internal Medicine; Visit Provider Physician Assistant
DX: R35.0 Frequency of micturition (principal)
CPT/HCPCS: 87086; 87210

== ENCOUNTER → 2024-11-10 12:08 | Outpatient (CLI) | payer MEDICARE, OTHER, SELFPAY ==
[2021-09-11 16:46] VITALS: BMI 26.3
[2024-11-10 13:58] LABS: TSH w/ Reflex to FT4 7.06 uIU/mL (0.47-4.68)
[2024-11-10 14:22] LABS: Free T4, Direct Thyroxine 0.87 ng/dL (0.78-2.19)
== END ==
PROVIDERS: Family Provider Internal Medicine; PCP Internal Medicine; Referring Provider Internal Medicine; Visit Provider Internal Medicine
DX: E03.9 Hypothyroidism, unspecified (principal)
CPT/HCPCS: 36415; 84439; 84443

== ENCOUNTER → 2025-03-03 13:07 | Outpatient (CLI) | payer MEDICARE, OTHER, SELFPAY ==
[2021-09-11 16:46] VITALS: BMI 26.3
--- NOTE | 2025-03-03 13:08 | DI.MG.S_ITS ---
MM screening mammo BI: 03/03/2025. BI-RADS: 1 CLINICAL: 69-year old female for bilateral screening mammogram. Tyrer-Cuzick lifetime risk of 7.8%. No personal or first-degree family history of breast cancer. Current reported family history of breast cancer: maternal aunt and maternal aunt's daughter. PRIOR EXAMS 02/26/2024, 02/04/2023, 01/16/2022, 01/09/2021, 10/15/2017. MAMMOGRAPHY TECHNIQUE: 2D and 3D (tomosynthesis) digital mammographic views obtained, with additional images as needed for full coverage. Current study was also evaluated with a Computer Aided Detection (CAD) system. DENSITY C. The breasts are heterogeneously dense, which may obscure small masses. MAMMOGRAPHY FINDINGS Bilateral: No suspicious mass, asymmetry, microcalcification, or other abnormality seen. IMPRESSION: * No evidence of malignancy. RECOMMENDATIONS Bilateral * Annual screening mammography. OVERALL ASSESSMENT CATEGORY BI-RADS-1: Negative. The [employer] recommends annual screening mammography beginning at age 40 for women with average risk of breast cancer. ELECTRONICALLY SIGNED: Rocío Fernando M.D. on 03/03/2025 at 09:24:54 PM PT Interpreting Station ID: [id number]
== END ==
LOC: MAMMO 13:07
PROVIDERS: Family Provider Internal Medicine; PCP Internal Medicine; Referring Provider Internal Medicine; Visit Provider Internal Medicine
DX: Z12.31 Encounter for screening mammogram for malignant neoplasm of breast (principal); R92.333 Mammographic heterogeneous density, bilateral breasts; Z80.3 Family history of malignant neoplasm of breast
CPT/HCPCS: 77063; 77067